=== PATIENT | male | born 1935 | race Caucasian/White ===

== ENCOUNTER → 2017-07-06 | Outpatient (CLI) | payer BC ==
[~2017-07-06] MED LIST: IBUP-103 PO; MULT-506 PO; OMEG10007 PO
[2017-07-06 13:42] LABS: ALT/SGPT 29 U/L (12-78); AST/SGOT 23 U/L (15-37); BLOOD UREA NITROGEN 27 mg/dl (7-18); BUN/CREATININE RATIO 16.5 (10-20); CALCIUM 9.6 mg/dl (8.5-10.1); CARBON DIOXIDE 25 mmol/L (21-32); CHLORIDE 108 mmol/L (98-107); CREATININE 1.62 mg/dl (0.60-1.40); GLUCOSE 93 mg/dl (70-99); POTASSIUM 4.4 mmol/L (3.5-5.1); SODIUM 140 mmol/L (136-145)
[2017-07-06 13:45] LABS: ALKALINE PHOSPHATASE 65 U/L (45-117)
== END | disposition home or self-care (01) ==
LOC: C.LABBC 09:32
PROVIDERS: ATTEND Physician Assistant
DX: I10 Essential (primary) hypertension (principal)

== ENCOUNTER → 2017-07-30 | Outpatient (CLI) | payer BC ==
[2017-07-30 14:17] LABS: BLOOD UREA NITROGEN 29 mg/dl (7-18); BUN/CREATININE RATIO 17.6 (10-20); CALCIUM 9.2 mg/dl (8.5-10.1); CARBON DIOXIDE 28 mmol/L (21-32); CHLORIDE 106 mmol/L (98-107); CREATININE 1.66 mg/dl (0.60-1.40); GLUCOSE 107 mg/dl (70-99); POTASSIUM 4.8 mmol/L (3.5-5.1); SODIUM 138 mmol/L (136-145)
== END | disposition home or self-care (01) ==
LOC: C.LABBC 09:15
PROVIDERS: ATTEND Physician Assistant
DX: Z00.00 Encounter for general adult medical examination without abnormal findings (principal); I10 Essential (primary) hypertension

== ENCOUNTER → 2017-09-08 | Outpatient (CLI) | payer BC ==
[2017-09-08 13:39] LABS: BLOOD UREA NITROGEN 24 mg/dl (7-18); CALCIUM 9.4 mg/dl (8.5-10.1); CARBON DIOXIDE 28 mmol/L (21-32); CREATININE 1.39 mg/dl (0.60-1.40); GLUCOSE 94 mg/dl (70-99); POTASSIUM 4.2 mmol/L (3.5-5.1); SODIUM 139 mmol/L (136-145)
== END | disposition home or self-care (01) ==
LOC: C.LABBC 09:58
PROVIDERS: ATTEND Physician Assistant
DX: I10 Essential (primary) hypertension (principal)

== ENCOUNTER → 2017-12-17 | Outpatient (CLI) | payer BC ==
[2017-12-17 14:12] LABS: ALBUMIN 3.9 gm/dl (3.4-5.0); ALT/SGPT 27 U/L (12-78); AST/SGOT 24 U/L (15-37); BLOOD UREA NITROGEN 20 mg/dl (7-18); CALCIUM 9.4 mg/dl (8.5-10.1); CARBON DIOXIDE 27 mmol/L (21-32); CREATININE 1.37 mg/dl (0.60-1.40); GLUCOSE 91 mg/dl (70-99); POTASSIUM 4.2 mmol/L (3.5-5.1); SODIUM 138 mmol/L (136-145)
[2017-12-17 14:15] LABS: ALKALINE PHOSPHATASE 66 U/L (45-117); TOTAL PROTEIN 8.1 gm/dl (6.4-8.2)
== END | disposition home or self-care (01) ==
LOC: C.LABBC 09:46
PROVIDERS: ATTEND Nurse Practitioner Adult Health
DX: I10 Essential (primary) hypertension (principal)

== ENCOUNTER → 2018-04-15 | Outpatient (CLI) | payer BC ==
[~2018-04-15] MED LIST changes: +AMLO5TAB3 PO; +ASPI81TA28 PO; -IBUP-103 PO; +LVQ750 PO; -MULT-506 PO; +PRED10TA PO; +SYMIN INH; +VNTHFA/IN INH
--- NOTE | 2018-04-15 09:13 | DIAGNOSTIC IMAGING REPORT ---
CHEST 2 VIEWS ROUTINE CLINICAL HISTORY: J18.9 [id number] dyspnea COMPARISON STUDY: 03/15/2018 FINDINGS: Interval development of what is potentially necrotic density right pulmonary apex. This is maximum dimension of 5 cm. It potentially represents a necrotic inflammatory process. Mildly progressive fibrotic changes left pulmonary apex. Slightly progressive bibasilar interstitial change. IMPRESSION: 1. Interval development of multi focal inflammatory changes and/or infiltrates. 2. The parenchymal infiltrate right pulmonary apex potentially shows a component of central necrosis. The above report was generated using voice recognition software. It may contain grammatical, syntax or spelling errors. Electronically signed by: Bryan Sehrman M.D. 04/15/2018 9:11 AM Dictated Date/Time: 04/15/2018 9:09 AM
== END | disposition home or self-care (01) ==
LOC: C.RADBC 08:56
PROVIDERS: ATTEND Nurse Practitioner Adult Health
DX: J18.9 Pneumonia, unspecified organism (principal); R91.8 Other nonspecific abnormal finding of lung field

== ENCOUNTER → 2018-04-21 | Outpatient (CLI) | payer BC ==
--- NOTE | 2018-04-21 12:03 | DIAGNOSTIC IMAGING REPORT ---
CT OF THE CHEST WITHOUT IV CONTRAST CLINICAL HISTORY: Abnormal chest radiograph. Pneumonia. COMPARISON STUDY: Chest CT March 11, 2018 and chest radiograph April 15, 2018. CT DOSE: 455.14 mGycm TECHNIQUE: Axial images of the chest were obtained without IV contrast. Images were reviewed in the axial, sagittal, and coronal planes. IV contrast was not administered for this examination. A dose lowering technique was utilized adhering to the principles of ALARA. FINDINGS: Several mildly enlarged right paratracheal lymph nodes measure up to 1.3 cm in short axis diameter. These have slightly increased since prior exam of March 11, 2018. The heart is mildly enlarged. There is no pericardial effusion. Moderate coronary artery calcification is noted. Lungs are suboptimally assessed due to respiratory motion. There is severe emphysema. Left upper lobe airspace opacity has improved since exam of March 11, 2018. Right upper lobe airspace opacity has developed since CT of March 11, 2018 but is improved since chest radiograph of April 15, 2018. There is no pneumothorax or pleural effusion. Bony thorax and upper abdomen are unremarkable on this unenhanced exam. IMPRESSION: 1. Moderate right upper lobe consolidation new since CT of March 11, 2018 but slightly improved since chest radiograph of April 15, 2018. This favors improving pneumonia. Radiographic follow-up to ensure resolution is recommended. 2. Improving left upper lobe airspace opacity since CT of March 11, 2018 consistent with improving pneumonia. 3. Severe emphysema. 4. Mild mediastinal lymphadenopathy which is likely reactive. Electronically signed by: Carmelo Samuel M.D. 04/21/2018 12:02 PM Dictated Date/Time: 04/21/2018 11:54 AM
== END | disposition home or self-care (01) ==
LOC: C.CTS 10:44
PROVIDERS: ATTEND Physician Assistant
DX: J18.9 Pneumonia, unspecified organism (principal); J43.9 Emphysema, unspecified

== ENCOUNTER 2021-01-29 12:10 | Inpatient (IN) ==
[2021-01-29] MEDS ORDERED: dexAMETHasone 6 MG in SYRINGE 0 ML IV ONE (12:27)
[2021-01-29] MEDS ORDERED: SODIUM CHLORIDE 0.9% 1000ML 1,000 ML IV STA (12:27)
[2021-01-29] MEDS ORDERED: ALBUT/IPRATROP 3MG/0.5MG NEB 3 ML VIAL NEB STA (12:27)
[2021-01-29] MEDS ORDERED: PIPERACILL/TAZOBAC CONSULT ACTIVE PRN (12:31)
[2021-01-29] MEDS ORDERED: PIPERACILLIN/TAZOBACTAM 4.5 GM/120 ML BAG IV ONE (12:31)
[2021-01-29] MEDS ORDERED: ACETAMINOPHEN 500 MG TAB PO STA (12:31)
[2021-01-29] MEDS ORDERED: DEXAMETHASONE SOD INJ 4 MG/ML VIAL ONE (12:43)
[2021-01-29 12:47] LABS: Basophils # (auto) 0.03 K/uL (0-0.2); Basophils % (auto) 0.3 %; Hematocrit (blood only) 51.5 % (42-52); Hemoglobin 17.9 g/dL (14.0-18.0); Immature Granulocytes # (auto) 0.05 K/uL (0.00-0.02); Immature Granulocytes % (auto) 0.6 %; Lymphocytes # (auto) 0.45 K/uL (1.2-3.4); Lymphocytes % (auto) 5.1 %; Mean Corpuscular Hgb Conc 34.8 g/dL (32-36); Mean Corpuscular Volume 92.1 fL (80-100); Mean Platelet Volume 10.3 fL (7.4-10.4); Monocytes % (auto) 3.4 %; Neutrophils # (auto) 7.94 K/uL (1.4-6.5); Neutrophils % (auto) 90.6 %; Platelet Count 186 K/uL (130-400); RDW Coefficient of Variation 14.1 % (11.5-14.5); RDW Standard Deviation 47.6 fL (36.4-46.3); Red Blood Count 5.59 M/uL (4.7-6.1); White Blood Count 8.77 K/uL (4.8-10.8)
--- NOTE | 2021-01-29 12:58 | XRay Report ---
XR chest 1V portable CLINICAL HISTORY: Fever COMPARISON STUDY: 11/05/2020 FINDINGS: The heart is mildly enlarged. There is slight progression in the bilateral reticular opacit ies with a lower lung zone predominance. There are also nodular opacities within the right upper lobe likely postinflammatory. Calcifications within the proximal left humerus, likely are secondary to a bone infarct although a chondroid lesion could appear similar.[ IMPRESSION: 1. Further progression in the reticular opacities with a basilar predominance. While likely represent ing progressive pulmonary fibrosis, an acute interstitial pneumonitis could appear similar 2. Stable right apical nodular scarring 3. Stable mild cardiomegaly ACT 112: Negative or not required by law. Electronically signed by: Jaun Chakraborty M.D. 01/29/2021 12:57 PM
--- NOTE | 2021-01-29 13:00 | Electrocardiogram Report ---
Test Reason : Blood Pressure : / mmHG Vent. Rate : 090 BPM Atrial Rate : 090 BPM P-R Int : 238 ms QRS Dur : 090 ms QT Int : 378 ms P-R-T Axes : 067 022 066 degrees QTc Int : 462 ms Poor data quality, interpretation may be adversely affected Sinus rhythm with 1st degree A-V block Otherwise normal ECG When compared with ECG of 31-MAY-2018 08:51, CA interval has increased Confirmed by Norman Viramontes ([id number]) on 01/29/2021 12:59:50 PM Referred By: Jeff Briceño Confirmed By:Norman Viramontes
[2021-01-29 13:06] LABS: Est GFR (African American) 46.6 ml/min
[2021-01-29 13:07] LABS: Albumin Level 4.1 gm/dl (3.4-5.0); BUN Creatinine Ratio 13.2 (10-20); Creatinine Clr Calc Pharmacy 34.8 ml/min; Est GFR (Non-African American) 40.2 ml/min
[2021-01-29 13:12] LABS: Bilirubin,Total 1.7 mg/dl (0.2-1); Globulin 4.1 gm/dl (2.5-4.0); Total Protein 8.2 gm/dl (6.4-8.2); Troponin I 0.019 ng/ml (0-0.045)
[2021-01-29 17:15] LABS: Appearance Urine Clear (Clear); Bacteria Urine Automated Negative (Negative); Bilirubin Urine Negative (Negative); Blood Urine Negative (Negative); Color Urine Yellow; Glucose Urine UA Negative (Negative); Ketones Urine Negative (Negative); Leukocyte Esterase Urine Negative (Negative); Nitrite Urine Negative (Negative); Protein Urine 2+ (Negative); RBC Urine Automated 0-4 /hpf (0-4); Specific Gravity Urine 1.017 (1.000-1.030); Urobilinogen Urine Negative (Negative); pH Urine 5.5 (4.5-7.5)
--- NOTE | 2021-01-29 17:24 | Emergency Department Note ---
History of Present Illness General Chief complaint: Fever Stated complaint: FEVER SENT BY DR. ARGUETA Time Seen by Provider: 01/29/21 12:21 Source: patient, family ( at the bedside) and RN notes reviewed Mode of arrival: ambulatory Limitations: no limitations History of Present Illness Provider complaint: Fever, shortness of breath This patient is a 85-year-old male who presents emergency department with compla ints of fever up to 102.5 last evening. 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 Patient is on home oxygen but has required increased flow. Pa mir dates he has been vaccinated against Covid, last shot being in early November. He has been using Tylenol for his fever. He is not currently on antibiotics. Home Medications Medication Instructions Recorded Confirmed Type aspirin [Aspirin Low Dose] 81 mg PO QAM 05/31/18 01/29/21 History omega [id number]-fish oil [Fish Oil] 1 cap PO QAM 05/31/18 01/29/21 History albuterol sulfate 90 mcg/actuation 2 - 4 puff INHALATION Q6H PRN #18 g 04/16/20 01/29/21 Rx aerosol inhaler ipratropium 0.5 mg-albuterol 3 mg 3 ml INHALATION Q4H PRN #180 vial 09/18/20 01/29/21 Rx (2.5 mg base)/3 mL nebulization soln budesonide-formoterol HFA 160 2 inh INH BID #10.2 g 10/15/20 01/29/21 Rx mcg-4.5 mcg/actuation aerosol inhaler tiotropium bromide 2.5 2 inh INHALATION QAM #4 g 11/07/20 01/29/21 Rx mcg/actuation mist for inhalation amlodipine 10 mg tablet 10 mg PO DAILY #90 tab 01/10/21 01/29/21 Rx Allergies Allergy/AdvReac Type Severity Reaction Status Date / Time blueberry Allergy Intermediate HIVES Verified 01/29/21 15:16 Past Med/Surg History Medical History (Updated 01/30/21 @ 15:20 by Jayna Medellin MD) Abnormal albumin Acute on chronic respiratory failure with hypoxemia Bullous emphysema Cancer Carotid stenosis, left Cerebral infarction CKD (chronic kidney disease) COPD (chronic obstructive pulmonary disease) Dyslipidemia Hypertension Idiopathic interstitial pneumonia Leukocytosis Pulmonary emphysema Surgical History History of appendectomy History of cataract surgery History of hernia repair History of laparoscopic cholecystectomy History of tonsillectomy and adenoidectomy Family History Unknown Diabetes Mother Stroke syndrome Father Coronary arteriosclerosis Denies family history of Ovarian cancer Prostate cancer Myocardial infarction Breast cancer Colorectal cancer Social History Smoking Status: Former smoker Tobacco Type: Cigarettes Age Started Using Tobacco: 19; Age Quit Using Tobacco: 54; packs per day: 2; Second Hand Exposure: Yes; Hx Alcohol Use: No Hx Substance Use: No Preferred Language: Montserratian Communication Ability: Effective Visual Impairment: No Limitations Hearing Ability: Hard of Hearing Beliefs That Will Affect Care: None marital status: Current Living Situation: Spouse current occupational status: retired Feels Safe at Home: Yes Safety Concerns: Feels Safe At This Time Childhood Exposure to Second-Hand Smoke: Yes Dental Care, Regularly: Yes Physical Activity Frequency: Does not Exercise Seatbelt Use: always Sunscreen Use: No Assistive Devices: Oxygen - Continuous Review of Systems See HPI for pertinent positives & negatives. and A total of 10 systems reviewed and were otherwise negative Physical Exam Vital Signs Vital Signs - 24 hr 01/29/21 12:13 01/29/21 12:30 01/29/21 12:36 Temperature 37.8 C H Temperature Source Temporal Artery Scan Pulse Rate 95 H 79 78 Pulse Rate [Right Finger] Pulse Rate from SpO2 Sensor 76 66 Respiratory Rate 28 H Respiratory Effort / Characteristics Labored Blood Pressure 127/69 132/78 Blood Pressure Mean 88 96 Pulse Oximetry 74 L 99 100 Oxygen Delivery Method Nasal Cannula Oxygen Flow Rate 6 Sepsis Recent Fever Within 48 Hours Yes Sepsis New/Unexplained Change in Mental Status N/A Sepsis Action Taken by Nursing No Action Required 01/29/21 12:38 01/29/21 12:40 01/29/21 12:47 Temperature Temperature Source Pulse Rate 75 81 Pulse Rate [Right Finger] Pulse Rate from SpO2 Sensor 71 83 Respiratory Rate Respiratory Effort / Characteristics Blood Pressure 126/75 Blood Pressure Mean 92 Pulse Oximetry 98 94 97 Oxygen Delivery Method Non-rebreather Oxygen Flow Rate 11 Sepsis Recent Fever Within 48 Hours Sepsis New/Unexplained Change in Mental Status Sepsis Action Taken by Nursing 01/29/21 12:50 01/29/21 12:52 01/29/21 13:00 Temperature Temperature Source Pulse Rate 77 76 Pulse Rate [Right Finger] 77 Pulse Rate from SpO2 Sensor 72 70 Respiratory Rate 22 Respiratory Effort / Characteristics Spontaneous Blood Pressure 124/72 Blood Pressure Mean 89 Pulse Oximetry 97 97 94 Oxygen Delivery Method Non-rebreather Oxygen Flow Rate 11 Sepsis Recent Fever Within 48 Hours Sepsis New/Unexplained Change in Mental Status Sepsis Action Taken by Nursing 01/29/21 13:10 01/29/21 13:16 01/29/21 13:20 Temperature Temperature Source Pulse Rate 76 73 72 Pulse Rate [Right Finger] Pulse Rate from SpO2 Sensor 67 71 71 Respiratory Rate Respiratory Effort / Characteristics Blood Pressure 119/62 Blood Pressure Mean 81 Pulse Oximetry 95 92 94 Oxygen Delivery Method Oxygen Flow Rate Sepsis Recent Fever Within 48 Hours Sepsis New/Unexplained Change in Mental Status Sepsis Action Taken by Nursing 01/29/21 13:30 01/29/21 13:40 01/29/21 13:45 Temperature Temperature Source Pulse Rate 70 71 72 Pulse Rate [Right Finger] Pulse Rate from SpO2 Sensor 70 64 67 Respiratory Rate Respiratory Effort / Characteristics Blood Pressure 109/65 110/61 Blood Pressure Mean 79 77 Pulse Oximetry 90 84 L 90 Oxygen Delivery Method Oxygen Flow Rate Sepsis Recent Fever Within 48 Hours Sepsis New/Unexplained Change in Mental Status Sepsis Action Taken by Nursing 01/29/21 13:50 01/29/21 14:00 01/29/21 14:10 Temperature Temperature Source Pulse Rate Pulse Rate [Right Finger] Pulse Rate from SpO2 Sensor 69 69 68 Respiratory Rate 21 22 Respiratory Effort / Characteristics Blood Pressure 107/60 Blood Pressure Mean 75 Pulse Oximetry 89 L 99 94 Oxygen Delivery Method Oxygen Flow Rate Sepsis Recent Fever Within 48 Hours Sepsis New/Unexplained Change in Mental Status Sepsis Action Taken by Nursing 01/29/21 14:15 01/29/21 14:20 01/29/21 14:30 Temperature Temperature Source Pulse Rate Pulse Rate [Right Finger] Pulse Rate from SpO2 Sensor 66 68 72 Respiratory Rate 28 H 23 24 Respiratory Effort / Characteristics Blood Pressure 101/59 L 107/64 Blood Pressure Mean 73 78 Pulse Oximetry 96 97 94 Oxygen Delivery Method Oxygen Flow Rate Sepsis Recent Fever Within 48 Hours Sepsis New/Unexplained Change in Mental Status Sepsis Action Taken by Nursing 01/29/21 14:40 01/29/21 14:45 01/29/21 14:50 Temperature Temperature Source Pulse Rate Pulse Rate [Right Finger] Pulse Rate from SpO2 Sensor 63 72 66 Respiratory Rate 23 19 23 Respiratory Effort / Characteristics Blood Pressure 102/68 Blood Pressure Mean 79 Pulse Oximetry 95 95 94 Oxygen Delivery Method Oxygen Flow Rate Sepsis Recent Fever Within 48 Hours Sepsis New/Unexplained Change in Mental Status Sepsis Action Taken by Nursing 01/29/21 15:00 01/29/21 15:10 01/29/21 15:20 Temperature Temperature Source Pulse Rate Pulse Rate [Right Finger] Pulse Rate from SpO2 Sensor 72 73 68 Respiratory Rate 23 29 H 20 Respiratory Effort / Characteristics Blood Pressure 105/65 Blood Pressure Mean 78 Pulse Oximetry 97 100 96 Oxygen Delivery Method Oxygen Flow Rate Sepsis Recent Fever Within 48 Hours Sepsis New/Unexplained Change in Mental Status Sepsis Action Taken by Nursing 01/29/21 15:30 01/29/21 15:40 01/29/21 15:50 Temperature Temperature Source Pulse Rate Pulse Rate [Right Finger] Pulse Rate from SpO2 Sensor 82 77 77 Respiratory Rate 26 H 23 22 Respiratory Effort / Characteristics Blood Pressure Blood Pressure Mean Pulse Oximetry 95 100 100 Oxygen Delivery Method Oxygen Flow Rate Sepsis Recent Fever Within 48 Hours Sepsis New/Unexplained Change in Mental Status Sepsis Action Taken by Nursing 01/29/21 16:00 01/29/21 16:10 01/29/21 16:20 Temperature Temperature Source Pulse Rate Pulse Rate [Right Finger] Pulse Rate from SpO2 Sensor 73 71 72 Respiratory Rate 24 18 19 Respiratory Effort / Characteristics Blood Pressure Blood Pressure Mean Pulse Oximetry 99 97 100 Oxygen Delivery Method Oxygen Flow Rate Sepsis Recent Fever Within 48 Hours Sepsis New/Unexplained Change in Mental Status Sepsis Action Taken by Nursing 01/29/21 16:30 01/29/21 16:36 01/29/21 16:37 Temperature Temperature Source Pulse Rate Pulse Rate [Right Finger] Pulse Rate from SpO2 Sensor 70 72 70 Respiratory Rate 25 H 23 16 Respiratory Effort / Characteristics Blood Pressure 109/89 Blood Pressure Mean 95 Pulse Oximetry 100 100 100 Oxygen Delivery Method Oxygen Flow Rate Sepsis Recent Fever Within 48 Hours Sepsis New/Unexplained Change in Mental Status Sepsis Action Taken by Nursing 01/29/21 16:40 01/29/21 16:50 01/29/21 17:00 Temperature Temperature Source Pulse Rate Pulse Rate [Right Finger] Pulse Rate from SpO2 Sensor 70 79 70 Respiratory Rate 17 21 27 H Respiratory Effort / Characteristics Blood Pressure 124/68 Blood Pressure Mean 86 Pulse Oximetry 100 98 100 Oxygen Delivery Method Oxygen Flow Rate Sepsis Recent Fever Within 48 Hours Sepsis New/Unexplained Change in Mental Status Sepsis Action Taken by Nursing 01/29/21 17:10 01/29/21 17:20 01/29/21 17:30 Temperature Temperature Source Pulse Rate Pulse Rate [Right Finger] Pulse Rate from SpO2 Sensor 71 71 68 Respiratory Rate 24 23 26 H Respiratory Effort / Characteristics Blood Pressure 110/57 L Blood Pressure Mean 74 Pulse Oximetry 100 100 97 Oxygen Delivery Method Oxygen Flow Rate Sepsis Recent Fever Within 48 Hours Sepsis New/Unexplained Change in Mental Status Sepsis Action Taken by Nursing 01/29/21 17:40 Temperature Temperature Source Pulse Rate Pulse Rate [Right Finger] Pulse Rate from SpO2 Sensor 77 Respiratory Rate 16 Respiratory Effort / Characteristics Blood Pressure Blood Pressure Mean Pulse Oximetry 100 Oxygen Delivery Method Oxygen Flow Rate Sepsis Recent Fever Within 48 Hours Sepsis New/Unexplained Change in Mental Status Sepsis Action Taken by Nursing Vital signs reviewed. General: Chronically ill-appearing 85-year-old male, in no significant distress. On oxymask HEENT: No scleral icterus, PERRLA, neck supple. Atraumatic. Cardiovascular: Regular rate and rhythm, no extra sounds. Pulmonary: Coarse breath sounds bilaterally, increased work of breathing on supplemental oxygen Abdomen: Soft, nontender, nondistended, positive bowel sounds. Musculoskeletal: Atraumatic, no peripheral edema. Neurologic: Patient awake alert and oriented x 3 Skin: Warm, dry, no rash Course Administered Medications Amlodipine Besylate (Amlodipine Besylate 5 Mg Tab) 10 mg PO DAILY [facility] Stop: 03/01/21 08:59 Last Admin: 01/30/21 08:04 Dose: 10 mg Documented by: [id number] Aspirin (Aspirin 81 Mg Ectab) 81 mg PO QAM [facility] Stop: 03/01/21 08:59 Last Admin: 01/30/21 08:05 Dose: 81 mg Documented by: [id number] Fish Oil ([place]-3 (Purified Fish Oil) 1 Gm Cap) 1 gm PO QAM [facility] Stop: 03/01/21 08:59 Last Admin: 01/30/21 08:05 Dose: 1 gm Documented by: [id number] Fluticasone/Vilanterol (Fluticasone/Vilanterol 100/25mcg 14 Puffs/Inhaler) 1 puffs INH DAILY IZAIAH Stop: 03/01/21 08:59 Last Admin: 01/30/21 08:05 Dose: 1 puffs Documented by: [id number] Heparin Sodium (Porcine) (Heparin Sod 5,000 Unit/0.5 Ml Vial) 5,000 units SQ Q8 IZAIAH Stop: 03/01/21 05:59 Last Admin: 01/30/21 20:29 Dose: 5,000 units Documented by: [id number] Admin: 01/30/21 13:37 Dose: 5,000 units Documented by: [id number] Admin: 01/30/21 05:23 Dose: 5,000 units Documented by: [id number] Prednisone (Prednisone 20 Mg Tab) 40 mg PO DAILY [facility] Stop: 03/01/21 08:59 Last Admin: 01/30/21 08:05 Dose: 40 mg Documented by: [id number] Umeclidinium Wyatt (Umeclidinium [place] 62.5mcg/Blister 7 Puffs/Inhaler) 1 puffs INH QAM [facility] Stop: 03/01/21 08:59 Last Admin: 01/30/21 08:06 Dose: 1 puffs Documented by: [id number] Discontinued Medications Acetaminophen (Acetaminophen 500 Mg Tab) 1,000 mg PO NOW STA Stop: 01/29/21 12:32 Last Admin: 01/29/21 12:49 Dose: 1,000 mg Documented by: [id number] Albuterol (Albut/Ipratrop 3mg/0.5mg Neb 3 Ml Vial) 3 ml NEB NOW STA Stop: 01/29/21 12:28 Last Admin: 01/29/21 12:52 Dose: 3 ml Documented by: [id number] Dexamethasone (Dexamethasone Sod Inj 4 Mg/Ml Vial) Confirm Administered Dose 8 mg .ROUTE .STK-MED ONE Stop: 01/29/21 12:44 Last Admin: 01/29/21 12:49 Dose: Not Given Documented by: [id number] Sodium Chloride (Nss 1000ml) 1,000 mls @ 125 mls/hr IV .Q8H STA Stop: 01/29/21 20:26 Last Infusion: 01/29/21 16:32 Dose: 0 mls/hr Documented by: [id number] Admin: 01/29/21 13:10 Dose: 125 mls/hr Documented by: [id number] Piperacillin Sod/Tazobactam Sod (Zosyn) 4.5 gm in 120 mls @ 240 mls/hr IV NOW ONE Stop: 01/29/21 13:00 Last Infusion: 01/29/21 13:47 Dose: 0 mls/hr Documented by: [id number] Admin: 01/29/21 12:49 Dose: 240 mls/hr Documented by: [id number] Dexamethasone 6 mg/ Syringe 1.5 mls @ 1 mls/min IV ONE ONE Stop: 01/29/21 12:28 Last Admin: 01/29/21 12:49 Dose: 1 mls/min Documented by: [id number] Piperacillin Sod/Tazobactam (Sod 3.375 gm/ Dextrose) 115 mls @ 28.75 mls/hr IV Q8H IZAIAH; Protocol Stop: 02/05/21 19:59 Last Infusion: 01/30/21 12:53 Dose: 0 mls/hr Documented by: [id number] Admin: 01/30/21 11:33 Dose: 28.8 mls/hr Documented by: [id number] Infusion: 01/30/21 08:13 Dose: 0 mls/hr Documented by: [id number] Admin: 01/30/21 03:06 Dose: 28.8 mls/hr Documented by: [id number] Infusion: 01/30/21 01:00 Dose: 0 mls/hr Documented by: [id number] Admin: 01/29/21 21:17 Dose: 28.8 mls/hr Documented by: [id number] Azithromycin 500 mg/ Dextrose 255 mls @ 127.5 mls/hr IV ONCE ONE Stop: 01/30/21 14:14 Last Infusion: 01/30/21 16:01 Dose: 0 mls/hr Documented by: [id number] Admin: 01/30/21 13:37 Dose: 127.5 mls/hr Documented by: [id number] Levalbuterol HCl (Levalbuterol 1.25mg/0.5ml Neb) 1.25 mg NEB Q6R IZAIAH Stop: 02/28/21 20:29 Last Admin: 01/30/21 13:18 Dose: 1.25 mg Documented by: [id number] Admin: 01/30/21 07:29 Dose: 1.25 mg Documented by: [id number] Admin: 01/30/21 00:13 Dose: 1.25 mg Documented by: [id number] Admin: 01/29/21 21:00 Dose: 1.25 mg Documented by: [id number] Levalbuterol HCl (Levalbuterol Hcl 1.25 Mg/3 Ml Neb) Confirm Administered Dose 1.25 mg .ROUTE .STK-MED ONE Stop: 01/30/21 13:15 Last Admin: 01/30/21 17:30 Dose: Not Given Documented by: [id number] Miscellaneous Information (Piperacill/Tazobac Consult Active) 1 ea N/A UD PRN PRN Reason: Consult Stop: 02/28/21 12:30 Last Admin: 01/29/21 12:49 Dose: 1 ea Documented by: [id number] Medical Decision Making Differential Diagnosis Reactive airway disease, pneumonia, pneumothorax, COPD, CHF, infections, cardiac ischemia, pulmonary embolism, musculoskeletal, gastrointestinal, as well as other pathologies. Medical Records Attestation: I reviewed the patient's medical records. Home Medications Current Medication List: was personally reviewed by me Laboratory Data Attestation: I reviewed the patient's lab results. Result diagrams: 01/30/21 08:37 01/30/21 08:37 Lab Results 01/29/21 01/29/21 01/29/21 Range/Units 12:30 12:30 13:00 WBC 8.77 (4.8-10.8) K/uL RBC 5.59 (4.7-6.1) M/uL Hgb 17.9 (14.0-18.0) g/dL Hct 51.5 (42-52) % MCV 92.1 (80-100) fL MCH 32.0 (25-34) pg MCHC 34.8 (32-36) g/dL RDW Std Deviation 47.6 H (36.4-46.3) fL RDW Coeff of Matt 14.1 (11.5-14.5) % Plt Count 186 (130-400) K/uL MPV 10.3 (7.4-10.4) fL Immature Gran % (Auto) 0.6 % Neut % (Auto) 90.6 % Lymph % (Auto) 5.1 % [place] % (Auto) 3.4 % Eos % (Auto) 0.0 % Baso % (Auto) 0.3 % Neut # (Auto) 7.94 H (1.4-6.5) K/uL Lymph # (Auto) 0.45 L (1.2-3.4) K/uL [place] # (Auto) 0.30 (0.11-0.59) K/uL Eos # (Auto) 0.00 (0-0.5) K/uL Baso # (Auto) 0.03 (0-0.2) K/uL Immature Gran # (Auto) 0.05 H (0.00-0.02) K/uL Sodium 134 L (136-145) mmol/L Potassium 4.0 (3.5-5.1) mmol/L Chloride 103 (98-107) mmol/L Carbon Dioxide 24 (21-32) mmol/L Anion Gap 7.0 (3-11) BUN 20 H (7-18) mg/dl Creatinine 1.55 H (0.6-1.4) mg/dl Est Cr Clr Drug Dosing 34.8 ml/min Est GFR ( Amer) 46.6 ml/min Est GFR (Non-Af Amer) 40.2 ml/min BUN/Creatinine Ratio 13.2 (10-20) Glucose 140 H (70-99) mg/dl Lactate Calcium 9.0 (8.5-10.1) mg/dl Total Bilirubin 1.7 H (0.2-1) mg/dl AST 39 H (15-37) U/L ALT 38 (12-78) U/L Alkaline Phosphatase 87 (45-117) U/L Troponin I 0.019 (0-0.045) ng/ml Total Protein 8.2 (6.4-8.2) gm/dl Albumin 4.1 (3.4-5.0) gm/dl Globulin 4.1 H (2.5-4.0) gm/dl Albumin/Globulin Ratio 1.0 (0.9-2) Procalcitonin (0-0.5) ng/ml Urine Color Urine Appearance (Clear) Urine pH (4.5-7.5) Ur Specific [place] (1.000-1.030) Urine Protein (Negative) Urine Glucose (UA) (Negative) Urine Ketones (Negative) Urine Blood (Negative) Urine Nitrite (Negative) Urine Bilirubin (Negative) Urine Urobilinogen (Negative) Ur Leukocyte Esterase (Negative) Urine WBC (Auto) (0-5) /hpf Urine RBC (Auto) (0-4) /hpf U Hyaline Cast (Auto) (0-5) /lpf U Epithel Cells (Auto) (0-5) /lpf Urine Bacteria (Auto) (Negative) COVID-19 Eval Order Covid19 at [facility] SARS-CoV-2 (PCR) (Negative) 01/29/21 01/29/21 01/29/21 Range/Units 13:00 13:10 16:38 WBC (4.8-10.8) K/uL RBC (4.7-6.1) M/uL Hgb (14.0-18.0) g/dL Hct (42-52) % MCV (80-100) fL MCH (25-34) pg MCHC (32-36) g/dL RDW Std Deviation (36.4-46.3) fL RDW Coeff of Matt (11.5-14.5) % Plt Count (130-400) K/uL MPV (7.4-10.4) fL Immature Gran % (Auto) % Neut % (Auto) % Lymph % (Auto) % [place] % (Auto) % Eos % (Auto) % Baso % (Auto) % Neut # (Auto) (1.4-6.5) K/uL Lymph # (Auto) (1.2-3.4) K/uL [place] # (Auto) (0.11-0.59) K/uL Eos # (Auto) (0-0.5) K/uL Baso # (Auto) (0-0.2) K/uL Immature Gran # (Auto) (0.00-0.02) K/uL Sodium (136-145) mmol/L Potassium (3.5-5.1) mmol/L Chloride (98-107) mmol/L Carbon Dioxide (21-32) mmol/L Anion Gap (3-11) BUN (7-18) mg/dl Creatinine (0.6-1.4) mg/dl Est Cr Clr Drug Dosing ml/min Est GFR ( Amer) ml/min Est GFR (Non-Af Amer) ml/min BUN/Creatinine Ratio (10-20) Glucose (70-99) mg/dl Lactate Cancelled Calcium (8.5-10.1) mg/dl Total Bilirubin (0.2-1) mg/dl AST (15-37) U/L ALT (12-78) U/L Alkaline Phosphatase (45-117) U/L Troponin I (0-0.045) ng/ml Total Protein (6.4-8.2) gm/dl Albumin (3.4-5.0) gm/dl Globulin (2.5-4.0) gm/dl Albumin/Globulin Ratio (0.9-2) Procalcitonin (0-0.5) ng/ml Urine Color Yellow Urine Appearance Clear (Clear) Urine pH 5.5 (4.5-7.5) Ur Specific [place] 1.017 (1.000-1.030) Urine Protein 2+ H (Negative) Urine Glucose (UA) Negative (Negative) Urine Ketones Negative (Negative) Urine Blood Negative (Negative) Urine Nitrite Negative (Negative) Urine Bilirubin Negative (Negative) Urine Urobilinogen Negative (Negative) Ur Leukocyte Esterase Negative (Negative) Urine WBC (Auto) 1-5 (0-5) /hpf Urine RBC (Auto) 0-4 (0-4) /hpf U Hyaline Cast (Auto) 1-5 (0-5) /lpf U Epithel Cells (Auto) 10-20 H (0-5) /lpf Urine Bacteria (Auto) Negative (Negative) COVID-19 Eval Order SARS-CoV-2 (PCR) NEGATIVE (Negative) 01/29/21 01/29/21 Range/Units 17:12 17:12 WBC (4.8-10.8) K/uL RBC (4.7-6.1) M/uL Hgb (14.0-18.0) g/dL Hct (42-52) % MCV (80-100) fL MCH (25-34) pg MCHC (32-36) g/dL RDW Std Deviation (36.4-46.3) fL RDW Coeff of Matt (11.5-14.5) % Plt Count (130-400) K/uL MPV (7.4-10.4) fL Immature Gran % (Auto) % Neut % (Auto) % Lymph % (Auto) % [place] % (Auto) % Eos % (Auto) % Baso % (Auto) % Neut # (Auto) (1.4-6.5) K/uL Lymph # (Auto) (1.2-3.4) K/uL [place] # (Auto) (0.11-0.59) K/uL Eos # (Auto) (0-0.5) K/uL Baso # (Auto) (0-0.2) K/uL Immature Gran # (Auto) (0.00-0.02) K/uL Sodium (136-145) mmol/L Potassium (3.5-5.1) mmol/L Chloride (98-107) mmol/L Carbon Dioxide (21-32) mmol/L Anion Gap (3-11) BUN (7-18) mg/dl Creatinine (0.6-1.4) mg/dl Est Cr Clr Drug Dosing ml/min Est GFR ( Amer) ml/min Est GFR (Non-Af Amer) ml/min BUN/Creatinine Ratio (10-20) Glucose (70-99) mg/dl Lactate 1.1 Calcium (8.5-10.1) mg/dl Total Bilirubin (0.2-1) mg/dl AST (15-37) U/L ALT (12-78) U/L Alkaline Phosphatase (45-117) U/L Troponin I (0-0.045) ng/ml Total Protein (6.4-8.2) gm/dl Albumin (3.4-5.0) gm/dl Globulin (2.5-4.0) gm/dl Albumin/Globulin Ratio (0.9-2) Procalcitonin 0.21 (0-0.5) ng/ml Urine Color Urine Appearance (Clear) Urine pH (4.5-7.5) Ur Specific [place] (1.000-1.030) Urine Protein (Negative) Urine Glucose (UA) (Negative) Urine Ketones (Negative) Urine Blood (Negative) Urine Nitrite (Negative) Urine Bilirubin (Negative) Urine Urobilinogen (Negative) Ur Leukocyte Esterase (Negative) Urine WBC (Auto) (0-5) /hpf Urine RBC (Auto) (0-4) /hpf U Hyaline Cast (Auto) (0-5) /lpf U Epithel Cells (Auto) (0-5) /lpf Urine Bacteria (Auto) (Negative) COVID-19 Eval Order SARS-CoV-2 (PCR) (Negative) Imaging Data Radiologist's Impression: Chest X-Ray 01/29/21 12:27 XR chest 1V portable CLINICAL HISTORY: Fever COMPARISON STUDY: 11/05/2020 FINDINGS: The heart is mildly enlarged. There is slight progression in the bilateral reticular opacities with a lower lung zone predominance. There are also nodular opacities within the right upper lobe likely postinflammatory. Calcifications within the proximal left humerus, likely are secondary to a bone infarct although a chondroid lesion could appear similar.[ IMPRESSION: 1. Further progression in the reticular opacities with a basilar predominance. While likely representing progressive pulmonary fibrosis, an acute interstitial pneumonitis could appear similar 2. Stable right apical nodular scarring 3. Stable mild cardiomegaly ACT 112: Negative or not required by law. Electronically signed by: Jaun Chakraborty M.D. 01/29/2021 12:57 PM ECG Data Attestation: I personally reviewed and interpreted this ECG as follows: Indication: + SOB/dyspnea Rate (beats per minute): 90 Rhythm: + sinus rhythm ECG Intervals/blocks: + First degree AV block and + Prolonged QT (462) ECG [place]: + Normal ECG ST segments: + Normal ST segments ECG Findings: + Other (Poor quality baseline for interpretation); no PACs and no PVCs Blood Pressure Blood Pressure Findings: Normal blood pressure Blood Pressure Disposition: did not require urgent referral MDM Narrative This patient was evaluated and appeared to be in no significant distress. IV access was obtained and laboratory work was drawn. An order for cardiac monitoring was placed and the patient is noted to be in a sinus rhythm with a first-degree AV block at 79 bpm. Chest x-ray reveals reticular opacities with basilar predominance per radiology. This may be due to the patient's underlying pulmonary fibrosis however this could also be related to pneumonitis. Given the patient's fever blood cultures were sent. Patient was medicated with IV Zosyn. He was also given IV dexamethasone and a DuoNeb treatment. He was hydrated with normal saline solution. He was given 1000 mg of p.o. Tylenol for his fever. Patient's Covid swab is negative. Case was discussed with the hospitalist service who will evaluate the patient for admission and further management. Patient and his are aware of the plan and agree. Impression & Plan Pneumonia, Respiratory failure with hypoxia Discharge Plan Visit Data Chief Complaint: Fever Stated Complaint: FEVER SENT BY DR. ARGUETA ED Provider: Shelby Bailey Discharge Problem: Pneumonia, Respiratory failure with hypoxia Patient Disposition: Admitted As Inpatient Discharge Instructions Interventions: ED Discharge Assessment Last Done: 01/29/21 18:46 Discharge Problem: Pneumonia Qualifiers: Pneumonia type: due to unspecified organism Laterality: bilateral Lung location: unspecified part of lung Qualified Code(s): J18.9 - Pneumonia, unspecified organism Respiratory failure with hypoxia Qualifiers: Chronicity: acute on chronic Qualified Code(s): J96.21 - Acute and chronic respiratory failure with hypoxia
--- NOTE | 2021-01-29 17:43 | History & Physical Report ---
Date of Service January 29, 2021 Assessment & Plan (1) IPF (idiopathic pulmonary fibrosis): (2) COPD (chronic obstructive pulmonary disease) with emphysema: Admit patient will place on home meds: LABA, LAMA, STEROIDS. levalbuterol NEBS WILL BE ORDERED (3) BPH w urinary obs/LUTS: controlled. will monitor (4) Hypertension: (5) Dyslipidemia: (6) CKD (chronic kidney disease): CKD stage 3 will monitor History of Present Illness Chief Complaint: SOB Primary Care Provider: Tk Almieda DO This is a pleasant 85 yo male with PMH described below who comes into the ER with Shortness of breath at rest and complaints of fever up to 102.5 last evening.. He denies any cough, chills, N/V. He reports he normally uses supplemental oxygen : 2L NC at rest, 5 liters on exertion Symptoms began yesterday. They did not get better which prompted him to come in to the hospital. Allergies Allergy/AdvReac Type Severity Reaction Status Date / Time blueberry Allergy Intermediate HIVES Verified 01/29/21 15:16 Home Medications Medication Instructions Recorded Confirmed Type aspirin [Aspirin Low Dose] 81 mg PO QAM 05/31/18 01/29/21 History omega 1-jwn-ojo-fish oil [Fish Oil] 1 cap PO QAM 05/31/18 01/29/21 History albuterol sulfate 90 mcg/actuation 2 - 4 puff INHALATION Q6H PRN #18 g 04/16/20 01/29/21 Rx aerosol inhaler ipratropium 0.5 mg-albuterol 3 mg 3 ml INHALATION Q4H PRN #180 vial 09/18/20 01/29/21 Rx (2.5 mg base)/3 mL nebulization soln budesonide-formoterol HFA 160 2 inh INH BID #10.2 g 10/15/20 01/29/21 Rx mcg-4.5 mcg/actuation aerosol inhaler tiotropium bromide 2.5 2 inh INHALATION QAM #4 g 11/07/20 01/29/21 Rx mcg/actuation mist for inhalation amlodipine 10 mg tablet 10 mg PO DAILY #90 tab 01/10/21 01/29/21 Rx Past Med/Surg History Medical History Abnormal albumin Bullous emphysema Cancer Carotid stenosis, left Cerebral infarction CKD (chronic kidney disease) COPD (chronic obstructive pulmonary disease) Dyslipidemia Hypertension Leukocytosis Surgical History History of appendectomy History of cataract surgery History of hernia repair History of laparoscopic cholecystectomy History of tonsillectomy and adenoidectomy Family History Unknown Diabetes Mother Stroke syndrome Father Coronary arteriosclerosis Denies family history of Ovarian cancer Prostate cancer Myocardial infarction Breast cancer Colorectal cancer Social History Smoking Status: Former smoker Tobacco Type: Cigarettes Age Started Using Tobacco: 19; Age Quit Using Tobacco: 54; packs per day: 2; Second Hand Exposure: Yes; Hx Alcohol Use: No Hx Substance Use: No Preferred Language: Swedish Communication Ability: Effective Visual Impairment: No Limitations Hearing Ability: Hard of Hearing Beliefs That Will Affect Care: None marital status: Current Living Situation: Spouse current occupational status: retired Feels Safe at Home: Yes Safety Concerns: Feels Safe At This Time Childhood Exposure to Second-Hand Smoke: Yes Dental Care, Regularly: Yes Physical Activity Frequency: Does not Exercise Seatbelt Use: always Sunscreen Use: No Assistive Devices: Oxygen - at Night and Oxygen - Continuous Review of Systems Review of Systems: All systems reviewed & are unremarkable except as noted in HPI & below Physical Exam Constitutional: WD/WN, vitals as above Eyes: PERRL, conjunctivae normal, anicteric sclerae ENMT: external ear and nose normal, oropharynx normal Neck: trachea midline, no thyromegaly Respiratory: + uses accessory muscles; not tachypneic wheezing Cardiovascular: RRR, no murmur, no edema Gastrointestinal (Abdomen): normal bowel sounds, soft, nontender, no hepatosplenomegaly Musculoskeletal: no cyanosis or clubbing, extremities motor strength 5/5 Neurologic: PERRL, EOMI, accommodation nl, no face palsy, no dysarthria Psychiatric: A+Ox3, euthymic affect Lymphatic: no cervical or axillary lymphadenopathy Results & Data Results & Data ([facility]) Vital Signs (Past 12 Hours) Vital Signs Temp Pulse Pulse Resp BP Pulse Ox 01/29/21 17:10 24 100 01/29/21 17:00 27 H 124/68 100 01/29/21 16:50 21 98 01/29/21 16:40 17 100 01/29/21 16:37 16 100 01/29/21 16:36 23 109/89 100 01/29/21 16:30 25 H 100 01/29/21 16:20 19 100 01/29/21 16:10 18 97 01/29/21 16:00 24 99 01/29/21 15:50 22 100 01/29/21 15:40 23 100 01/29/21 15:30 26 H 95 01/29/21 15:20 20 96 01/29/21 15:10 29 H 100 01/29/21 15:00 23 105/65 97 01/29/21 14:50 23 94 01/29/21 14:45 19 102/68 95 01/29/21 14:40 23 95 01/29/21 14:30 24 107/64 94 01/29/21 14:20 23 97 01/29/21 14:15 28 H 101/59 L 96 01/29/21 14:10 22 94 01/29/21 14:00 21 107/60 99 01/29/21 13:50 89 L 01/29/21 13:45 72 110/61 90 01/29/21 13:40 71 84 L 01/29/21 13:30 70 109/65 90 01/29/21 13:20 72 94 01/29/21 13:16 73 119/62 92 01/29/21 13:10 76 95 01/29/21 13:00 76 124/72 94 01/29/21 12:52 77 22 97 01/29/21 12:50 77 97 01/29/21 12:47 81 126/75 97 01/29/21 12:40 75 94 01/29/21 12:38 98 01/29/21 12:36 78 100 01/29/21 12:30 79 132/78 99 01/29/21 12:13 37.8 C H 95 H 28 H 127/69 74 L PG Care Time/CCT Total # of Minutes Spent Total Time Spent with Patient: Total time spent is greater than 50% in coordination of care (as documented) at patient's floor/unit and/or counseling patient: Coding Level of Care Code 56591 Initial Inpt Care Lvl 3 Diagnoses IPF (idiopathic pulmonary fibrosis) J84.112 COPD (chronic obstructive pulmonary disease) with emphysema J43.9 BPH w urinary obs/LUTS N40.1; N13.8 Hypertension I10 Dyslipidemia E78.5 CKD (chronic kidney disease) N18.9 Time Spent (min) 55
[2021-01-29] MEDS: LEVALBUTEROL 1.25MG/0.5ML NEB NEB SCH (21:00)
[2021-01-29] MEDS: PIPERACILLIN/TAZOBACTAM 3.375 GM in DEXTROSE 5% 100 ML IV SCH (21:17)
[2021-01-30] MEDS: LEVALBUTEROL 1.25MG/0.5ML NEB NEB SCH ×3 (00:13→13:18)
[2021-01-30] MEDS: PIPERACILLIN/TAZOBACTAM 3.375 GM in DEXTROSE 5% 100 ML IV SCH ×2 (03:06→11:33)
[2021-01-30] MEDS: HEPARIN SOD 5,000 UNIT/0.5 ML VIAL SQ SCH ×3 (05:23→20:29)
[2021-01-30] MEDS: amLODIPine BESYLATE 5 MG TAB PO SCH (08:04)
[2021-01-30] MEDS: FLUTICASONE/VILANTEROL 100/25MCG 14 PUFFS/INHALER INH SCH (08:05)
[2021-01-30] MEDS: OMEGA-3 (PURIFIED FISH OIL) 1 GM CAP PO SCH (08:05)
[2021-01-30] MEDS: ASPIRIN 81 MG ECTAB PO SCH (08:05)
[2021-01-30] MEDS: predniSONE 20 MG TAB PO SCH (08:05)
[2021-01-30] MEDS: UMECLIDINIUM BROMIDE 62.5MCG/BLISTER 7 PUFFS/INHALER INH SCH (08:06)
[2021-01-30 09:18] LABS: Hematocrit (blood only) 44.4 % (42-52); Hemoglobin 15.7 g/dL (14.0-18.0); Mean Corpuscular Hgb Conc 35.4 g/dL (32-36); Mean Corpuscular Volume 90.6 fL (80-100); Platelet Count 178 K/uL (130-400); RDW Coefficient of Variation 13.7 % (11.5-14.5); RDW Standard Deviation 45.6 fL (36.4-46.3); White Blood Count 5.62 K/uL (4.8-10.8)
[2021-01-30 09:48] LABS: BUN Creatinine Ratio 17.1 (10-20); Calcium 8.9 mg/dl (8.5-10.1); Creatinine Clr Calc Pharmacy 41.5 ml/min; Est GFR (African American) 57.7 ml/min; Est GFR (Non-African American) 49.8 ml/min; Potassium 3.8 mmol/L (3.5-5.1)
--- NOTE | 2021-01-30 11:57 | Pulmonary Consultation ---
Date of Consultation January 30, 2021 Assessment & Plan (1) Acute on chronic respiratory failure with hypoxemia: 85-year-old male with a past medical history of pulmonary emphysema, BPH and chronic hypoxic respiratory failure who was in the hospital due to worsening hypoxia and shortness of breath. Shortness of breath and hypoxia: He does have severe underlying emphysema and findings consistent with interstitial lung disease including bibasilar predominant subpleural reticulation and honeycombing. Mild traction bronchiectasis was also seen on the CT chest from November 2020. The differential for these type of radiographic findings can include UIP/IPF, CPFE (combined pulmonary fibrosis and emphysema) and occasionally chronic hypersensitivity pneumonitis. I suspect that he has a flare of his underlying idiopathic interstitial pneumonia and I agree with prednisone treatment. I would recommend transitioning from Zosyn to azithromycin to cover for atypical infection. His procalcitonin was within normal limits and I doubt that he has an acute bacterial pneumonia from a typical organism. A prolonged course of prednisone will be required with pulmonary follow-up as an outpatient. Updated PFTs in the outpatient setting may be beneficial. Please continue the current inhaler regimen that he is on Symbicort and Spiriva as an outpatient. Breo Ellipta and Incruse Ellipta can be utilized as an inpatient. Hypoxia: Target SPO2 88 to 92%. He is normally on 2 to 5 L of oxygen at home. Will order incentive spirometry and flutter valve to help with mucociliary clearance. Pulmonary will continue to follow along with you. Thank you for the consult. (2) Idiopathic interstitial pneumonia: (3) Pulmonary emphysema: History of Present Illness Reason for Consultation: Worsening hypoxia Attending Physician: Jayna Medellin MD History of Present Illness 85-year-old male with a past medical history of severe pulmonary emphysema, possible interstitial lung disease, carotid artery disease and BPH who presented to the hospital due to increasing shortness of breath and hypoxia. He is normally on 2 L of oxygen at rest and 5 L of oxygen on exertion. The patient was started on Zosyn by the hospitalist. Patient complained of a fever of 102.5 on admission. He is also on prednisone 40 mg daily there was initiated on admission. He was given a dose of Decadron 8 mg in the emergency department. COVID-19 testing here was negative. The patient normally follows with Dr. Briceño in the pulmonary clinic. He was last seen by him on 12/18/2020. The patient relates that his symptoms began around Memorial Day and he started having low-grade temperature. He then started having back pain and leg pain. He notes that his oxygen levels were not staying up with his usual flow rate of oxygen. He was also having some mild orthopnea symptoms. He denied any chest pain. He does have a slight cough today that is nonproductive. He does feel better today as compared to yesterday. He feels less short of breath. He was a heavy smoker roughly 30 years ago. He did not quantify how much he smoked exactly, but noted that he was a very heavy smoker. 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 He has 7 cats at home and lives in a large property. He denies any exposures to birds that he is aware of. He denies smoking a pipe or cigars. No leukocytosis seen on admission. Procalcitonin admission was 0.21. No documented fevers seen. Allergies Allergy/AdvReac Type Severity Reaction Status Date / Time blueberry Allergy Intermediate HIVES Verified 01/29/21 15:16 Home Medications Medication Instructions Recorded Confirmed Type aspirin [Aspirin Low Dose] 81 mg PO QAM 05/31/18 01/29/21 History omega 8-qyq-qnp-fish oil [Fish Oil] 1 cap PO QAM 05/31/18 01/29/21 History albuterol sulfate 90 mcg/actuation 2 - 4 puff INHALATION Q6H PRN #18 g 04/16/20 01/29/21 Rx aerosol inhaler ipratropium 0.5 mg-albuterol 3 mg 3 ml INHALATION Q4H PRN #180 vial 09/18/20 01/29/21 Rx (2.5 mg base)/3 mL nebulization soln budesonide-formoterol HFA 160 2 inh INH BID #10.2 g 10/15/20 01/29/21 Rx mcg-4.5 mcg/actuation aerosol inhaler tiotropium bromide 2.5 2 inh INHALATION QAM #4 g 11/07/20 01/29/21 Rx mcg/actuation mist for inhalation amlodipine 10 mg tablet 10 mg PO DAILY #90 tab 01/10/21 01/29/21 Rx Patient History Medical History (Updated 06/02/21 @ 12:29 by Tony Whitt MD) Abnormal albumin Acute on chronic respiratory failure with hypoxemia Bullous emphysema Cancer Carotid stenosis, left Cerebral infarction CKD (chronic kidney disease) COPD (chronic obstructive pulmonary disease) Dyslipidemia Hypertension Idiopathic interstitial pneumonia Leukocytosis Pulmonary emphysema Surgical History History of appendectomy History of cataract surgery History of hernia repair History of laparoscopic cholecystectomy History of tonsillectomy and adenoidectomy Family History Unknown Diabetes Mother Stroke syndrome Father Coronary arteriosclerosis Denies family history of Ovarian cancer Prostate cancer Myocardial infarction Breast cancer Colorectal cancer Social History Smoking Status: Former smoker Tobacco Type: Cigarettes Age Started Using Tobacco: 19; Age Quit Using Tobacco: 54; packs per day: 2; Second Hand Exposure: Yes; Hx Alcohol Use: No Hx Substance Use: No Preferred Language: Georgian Communication Ability: Effective Visual Impairment: No Limitations Hearing Ability: Hard of Hearing Beliefs That Will Affect Care: None marital status: Current Living Situation: Spouse current occupational status: retired Feels Safe at Home: Yes Safety Concerns: Feels Safe At This Time Childhood Exposure to Second-Hand Smoke: Yes Dental Care, Regularly: Yes Physical Activity Frequency: Does not Exercise Seatbelt Use: always Sunscreen Use: No Assistive Devices: Oxygen - Continuous Review of Systems Review of Systems: All systems reviewed & are unremarkable except as noted in HPI & below Physical Exam Constitutional: WD/WN, vitals as above Neck: trachea midline, no thyromegaly Respiratory: Mild Velcro crackles noted in the bilateral lower lobes on expiration Cardiovascular: RRR, no murmur, no edema Gastrointestinal (Abdomen): normal bowel sounds, soft, nontender, no hepatosplenomegaly Musculoskeletal: no cyanosis or clubbing, extremities motor strength 5/5 Skin: no rashes, warm and dry Neurologic: PERRL, EOMI, accommodation nl, no face palsy, no dysarthria Psychiatric: A+Ox3, euthymic affect Results & Data Results & Data ([facility]) Vital Signs (Past 12 Hours) Vital Signs Temp Pulse Pulse Resp BP BP Pulse Ox 01/30/21 11:05 98.1 F 78 18 124/66 93 01/30/21 07:31 75 18 93 01/30/21 07:24 97.5 F L 77 20 126/71 95 01/30/21 07:00 70 01/30/21 03:35 97.9 F 70 18 111/69 95 01/30/21 00:17 81 18 91 01/30/21 00:04 69 PFT from 2017 reviewed: FEV1/FVC 75 FEV1 2.96 L, 142% predicted FVC 3.92 L, 134% predicted RV 32% predicted TLC 4.46 L, 82% predicted RV/TLC 37% predicted DLCO 36% predicted DL/VA 48% predicted Spirometric values do not correlate well with lung volumes. This could be related to pseudonormalization given a mixed pattern of obstructive and restrictive lung disease. His DLCO is very low which correlates with the severe emphysema noted on CT chest. Pulmonary vascular disease such as cor pulmonale is difficult to rule out. CT chest from November reviewed with findings of severe emphysema and lower lobe increased interstitial markings with mild traction bronchiectasis. Chest x-ray from this admission demonstrates mildly increased interstitial markings in the lower lobes bilaterally. PG Care Time/CCT Total # of Minutes Spent Total Time Spent with Patient: Total time spent is greater than 50% in coordination of care (as documented) at patient's floor/unit and/or counseling patient: Coding Level of Care Code 00712 Inpt Consult Level 5 Diagnoses Acute on chronic respiratory failure with hypoxemia J96.21 Idiopathic interstitial pneumonia J84.111 Pulmonary emphysema J43.9
[2021-01-30] MEDS ORDERED: AZITHROMYCIN 500 MG in DEXTROSE 5% 250 ML IV ONE (12:15)
[2021-01-30] MEDS ORDERED: LEVALBUTEROL HCL 1.25 MG/3 ML NEB ONE (13:14)
[2021-01-30] MEDS ORDERED: LEVALBUTEROL HCL 1.25 MG/3 ML NEB NEB PRN (14:11)
--- NOTE | 2021-01-30 15:18 | Hospitalist Progress Note ---
Date of Service January 30, 2021 Assessment & Plan (1) IPF (idiopathic pulmonary fibrosis): Patient presents with worsening shortness of breath, acute on chronic respiratory failure with hypoxemia, and a fever to 102.5 at home. Chest x-ray shows further progression of bibasilar pleural opacities which could be consistent with pneumonitis Improving on antibiotics -dc ZOsyn as no risk for gram negative PNA -start azithromycin 500mg IV x 1 today and then complete 5 day course with 250mg po once daily -appreciate PULM consult -start flutter valve, IS -continue supplemental O2 to keep POx>88% and wean back down to usual home O2 of 2LNC at rest and 5LNC with exertion -continue prednisone 40mg daily and long, slow taper as per PULM -continue inhalers (2) Acute on chronic respiratory failure with hypoxemia: as above (3) COPD (chronic obstructive pulmonary disease) with emphysema: as above (4) Hypertension: Blood pressure controlled Continue home amlodipine, aspirin (5) Dyslipidemia: Continue home fish oil (6) CKD (chronic kidney disease): CKD stage 3 Renal function is at baseline -Avoid nephrotoxins -renally dose meds when appropriate -follow BMP (7) DVT prophylaxis: SQ heparin Disposition-continued stay, but may be able to discharge to home in the next 1 to 2 days. Will need a two-step walking test prior to discharge to see if oxygen requirements have changed. Admission and Anticipated Discharge Date Admission Date: January 29, 2021 Subjective Patient reports feeling better than yesterday, cough is improved, no sputum with cough. No fever since arrival. Denies headache or lightheadedness, no chest pains or shortness of breath. This morning he was at 8 L by oxygen mask and now he is weaned back down to 5 L nasal cannula at rest. He denies any nausea or vomiting, no abdominal pain, no diarrhea. He did have pain in the backs of his calves when he had the fever at home. He has had some mild headaches but that is now improved. He has not been around anyone else been sick. Telemetry with normal sinus rhythm, first-degree AV block, normal rates, PVCs and PACs I discussed his case with pulmonology on-call Review of Systems Review of Systems: All systems reviewed & are unremarkable except as noted in HPI & below Physical Exam Constitutional: WD/WN, vitals as above Eyes: + anicteric sclerae Neck: trachea midline, no thyromegaly Respiratory: normal respiratory effort Auscultation: + crackles (Fine crackles at lower and middle lung gardner bilaterally); no rhonchi and no wheezes Cardiovascular: RRR, no murmur, no edema Chest (Breasts): Chest: normal inspection of chest Gastrointestinal (Abdomen): normal bowel sounds, soft, nontender, no hepatosplenomegaly Musculoskeletal: Extremities: extremities normal to inspection; no cyanosis and no clubbing Skin: no rashes, warm and dry Neurologic: moves all extremities and awake; no focal motor deficits Psychiatric: A+Ox3, euthymic affect Lymphatic: no lymphedema Results & Data Results & Data ([facility]) Vital Signs (Past 12 Hours) Vital Signs Temp Pulse Pulse Resp BP BP Pulse Ox 01/30/21 14:43 36.6 C 76 18 114/62 90 01/30/21 13:20 76 20 97 01/30/21 11:05 36.7 C 78 18 124/66 93 01/30/21 07:31 75 18 93 01/30/21 07:24 36.4 C L 77 20 126/71 95 01/30/21 07:00 70 01/30/21 03:35 36.6 C 70 18 111/69 95 Laboratory Results 01/30/21 01/30/21 Range/Units 08:37 08:37 WBC 5.62 (4.8-10.8) K/uL RBC 4.90 (4.7-6.1) M/uL Hgb 15.7 (14.0-18.0) g/dL Hct 44.4 (42-52) % MCV 90.6 (80-100) fL MCH 32.0 (25-34) pg MCHC 35.4 (32-36) g/dL RDW Std Deviation 45.6 (36.4-46.3) fL RDW Coeff of Matt 13.7 (11.5-14.5) % Plt Count 178 (130-400) K/uL MPV 11.0 H (7.4-10.4) fL Sodium 137 (136-145) mmol/L Potassium 3.8 (3.5-5.1) mmol/L Chloride 108 H (98-107) mmol/L Carbon Dioxide 22 (21-32) mmol/L Anion Gap 7.0 (3-11) BUN 22 H (7-18) mg/dl Creatinine 1.30 (0.6-1.4) mg/dl Est Cr Clr Drug Dosing 41.5 ml/min Est GFR ( Amer) 57.7 ml/min Est GFR (Non-Af Amer) 49.8 ml/min BUN/Creatinine Ratio 17.1 (10-20) Glucose 167 H (70-99) mg/dl Calcium 8.9 (8.5-10.1) mg/dl PG Care Time/CCT Total # of Minutes Spent Total Time Spent with Patient: Total time spent is greater than 50% in coordination of care (as documented) at patient's floor/unit and/or counseling patient: Coding Level of Care Code 39999 Subseq Hosp Care Lvl 3 Diagnoses IPF (idiopathic pulmonary fibrosis) J84.112 Acute on chronic respiratory failure with hypoxemia J96.21 COPD (chronic obstructive pulmonary disease) with emphysema J43.9 Hypertension I10 Dyslipidemia E78.5 CKD (chronic kidney disease) N18.9 DVT prophylaxis Z29.9
[2021-01-31] MEDS: HEPARIN SOD 5,000 UNIT/0.5 ML VIAL SQ SCH ×3 (04:54→21:40)
[2021-01-31 07:56] LABS: Calcium 9.3 mg/dl (8.5-10.1); Creatinine Clr Calc Pharmacy 46.2 ml/min; Est GFR (African American) 65.5 ml/min; Est GFR (Non-African American) 56.5 ml/min; Potassium 3.7 mmol/L (3.5-5.1)
[2021-01-31] MEDS: amLODIPine BESYLATE 5 MG TAB PO SCH (08:25)
[2021-01-31] MEDS: predniSONE 20 MG TAB PO SCH (08:25)
[2021-01-31] MEDS: OMEGA-3 (PURIFIED FISH OIL) 1 GM CAP PO SCH (08:25)
[2021-01-31] MEDS: ASPIRIN 81 MG ECTAB PO SCH (08:25)
[2021-01-31] MEDS: FLUTICASONE/VILANTEROL 100/25MCG 14 PUFFS/INHALER INH SCH (08:25)
[2021-01-31] MEDS: UMECLIDINIUM BROMIDE 62.5MCG/BLISTER 7 PUFFS/INHALER INH SCH (08:26)
[2021-01-31] MEDS: AZITHROMYCIN 250 MG TAB PO SCH (13:59)
--- NOTE | 2021-01-31 16:07 | Hospitalist Progress Note ---
Date of Service January 31, 2021 Assessment & Plan (1) IPF (idiopathic pulmonary fibrosis): Patient presents with worsening shortness of breath, acute on chronic respiratory failure with hypoxemia, and a fever to 102.5 at home. Chest x-ray shows further progression of bibasilar pleural opacities which could be consistent with pneumonitis Improving on antibiotics, no further fevers since admission Still remains on higher levels of O2 than baseline Minimal nonproductive cough. Initially on ZOsyn x 24 hrs which was then dcd as no risk for gram negative PNA -cont azithromycin 250mg po once daily x total 5 day course -appreciate PULM consult -continue flutter valve, IS -continue supplemental O2 to keep POx>88% and wean back down to usual home O2 of 2LNC at rest and 5LNC with exertion -continue prednisone 40mg daily and long, slow taper as per PULM -continue inhalers (2) Acute on chronic respiratory failure with hypoxemia: as above, improved but still POx 88% on 5L at rest continue treatment as above (3) COPD (chronic obstructive pulmonary disease) with emphysema: as above (4) Hypertension: Blood pressure controlled Continue home amlodipine, aspirin (5) Dyslipidemia: Continue home fish oil (6) CKD (chronic kidney disease): CKD stage 3 Renal function is at baseline -Avoid nephrotoxins -renally dose meds when appropriate (7) DVT prophylaxis: SQ heparin Disposition-continued stay, but may be able to discharge to home in the next 1 to 2 days if O2 requirement improves. Will need a two-step walking test prior to discharge to see if oxygen requirements have changed. Admission and Anticipated Discharge Date Admission Date: January 29, 2021 Subjective Pt feels ok, no SOB, no CP. Remains on 5L Oxymask and POx 88%. No fevers since time of admission. Is eating and appetite seems to be a little better. Having normal BMs, urinating. No other issues today. No sputum production and cough minimal Tele with NSR, PACs 1st degree AVB, rates 70s Review of Systems Review of Systems: All systems reviewed & are unremarkable except as noted in HPI & below Physical Exam Constitutional: WD/WN, vitals as above Eyes: + anicteric sclerae Neck: trachea midline, no thyromegaly Respiratory: normal respiratory effort Auscultation: + crackles (Fine crackles at lower and middle lung gardner bilaterally); no rhonchi and no wheezes Cardiovascular: RRR, no murmur, no edema Chest (Breasts): Chest: normal inspection of chest Gastrointestinal (Abdomen): normal bowel sounds, soft, nontender, no hepatosplenomegaly Musculoskeletal: Extremities: extremities normal to inspection; no cyanosis and no clubbing Skin: no rashes, warm and dry Neurologic: moves all extremities and awake; no focal motor deficits Psychiatric: A+Ox3, euthymic affect Lymphatic: no lymphedema Results & Data Results & Data ([facility]) Vital Signs (Past 12 Hours) Vital Signs Temp Pulse Pulse Resp BP Pulse Ox 01/31/21 15:36 36.6 C 74 16 138/70 88 L 01/31/21 11:24 36.9 C 78 16 128/62 88 L 01/31/21 08:00 73 01/31/21 07:32 36.5 C 69 20 136/66 92 01/31/21 04:12 71 Laboratory Results 01/31/21 Range/Units 07:12 Sodium 139 (136-145) mmol/L Potassium 3.7 (3.5-5.1) mmol/L Chloride 107 (98-107) mmol/L Carbon Dioxide 26 (21-32) mmol/L Anion Gap 6.0 (3-11) BUN 22 H (7-18) mg/dl Creatinine 1.17 (0.6-1.4) mg/dl Est Cr Clr Drug Dosing 46.2 ml/min Est GFR ( Amer) 65.5 ml/min Est GFR (Non-Af Amer) 56.5 ml/min BUN/Creatinine Ratio 19.0 (10-20) Glucose 94 (70-99) mg/dl Calcium 9.3 (8.5-10.1) mg/dl PG Care Time/CCT Total # of Minutes Spent Total Time Spent with Patient: Total time spent is greater than 50% in coordination of care (as documented) at patient's floor/unit and/or counseling patient: Coding Level of Care Code 17405 Subseq Hosp Care Lvl 2 Diagnoses IPF (idiopathic pulmonary fibrosis) J84.112 Acute on chronic respiratory failure with hypoxemia J96.21 COPD (chronic obstructive pulmonary disease) with emphysema J43.9 Hypertension I10 Dyslipidemia E78.5 CKD (chronic kidney disease) N18.9 DVT prophylaxis Z29.9
[2021-02-01] MEDS: HEPARIN SOD 5,000 UNIT/0.5 ML VIAL SQ SCH ×2 (05:51→13:11)
[2021-02-01] MEDS: amLODIPine BESYLATE 5 MG TAB PO SCH (07:27)
[2021-02-01] MEDS: ASPIRIN 81 MG ECTAB PO SCH (07:27)
[2021-02-01] MEDS: OMEGA-3 (PURIFIED FISH OIL) 1 GM CAP PO SCH (07:27)
[2021-02-01] MEDS: UMECLIDINIUM BROMIDE 62.5MCG/BLISTER 7 PUFFS/INHALER INH SCH (07:27)
[2021-02-01] MEDS: predniSONE 20 MG TAB PO SCH (07:27)
[2021-02-01] MEDS: FLUTICASONE/VILANTEROL 100/25MCG 14 PUFFS/INHALER INH SCH (07:28)
[2021-02-01] MEDS: AZITHROMYCIN 250 MG TAB PO SCH (13:11)
--- NOTE | 2021-02-01 15:20 | Pulmonology Progress Note ---
Date of Service February 01, 2021 Assessment & Plan (1) Acute on chronic respiratory failure with hypoxemia: 85-year-old male with a past medical history of pulmonary emphysema, BPH and chronic hypoxic respiratory failure who was in the hospital due to worsening hypoxia and shortness of breath. Shortness of breath and hypoxia: He does have severe underlying emphysema and findings consistent with interstitial lung disease including bibasilar predominant subpleural reticulation and honeycombing. Mild traction bronchiectasis was also seen on the CT chest from November 2020. The differential for these type of radiographic findings can include UIP/IPF, CPFE (combined pulmonary fibrosis and emphysema) and occasionally chronic hypersensitivity pneumonitis. I suspect that he has a flare of his underlying idiopathic interstitial pneumonia and I agree with prednisone treatment. Recommend a prednisone taper over 10 days and continue at a dose of 10 mg daily until he is seen in the pulmonary clinic. Updated PFTs in the outpatient setting may be beneficial. Please continue his home inhaler regimen upon discharge. Hypoxia: Target SPO2 88 to 92%. He is normally on 2 to 5 L of oxygen at home. Patient is stable for discharge. This was discussed with his hospitalist, Dr. Medellin. (2) Idiopathic interstitial pneumonia: (3) Pulmonary emphysema: Admission and Anticipated Discharge Date Admission Date: January 29, 2021 Subjective Patient seen examined today. Denies any significant shortness of breath beyond his usual. He feels that he is back to his baseline. He was able to walk to the bathroom without any significant breathlessness. He is on 5 L of oxygen which is what he normally uses at home. He denies any pain anywhere. He is r radha to go home. Review of Systems Review of Systems: All systems reviewed & are unremarkable except as noted in HPI & below Physical Exam Constitutional: WD/WN, vitals as above Neck: trachea midline, no thyromegaly Respiratory: Mild Velcro crackles noted in the bilateral lower lobes on expiration Cardiovascular: RRR, no murmur, no edema Gastrointestinal (Abdomen): normal bowel sounds, soft, nontender, no hepatosplenomegaly Musculoskeletal: no cyanosis or clubbing, extremities motor strength 5/5 Skin: no rashes, warm and dry Neurologic: PERRL, EOMI, accommodation nl, no face palsy, no dysarthria Psychiatric: A+Ox3, euthymic affect Results & Data Results & Data ([facility]) Vital Signs (Past 12 Hours) Vital Signs Temp Pulse Pulse Resp BP BP Pulse Ox 02/01/21 14:52 97.9 F 65 18 124/71 92 02/01/21 11:17 97.5 F L 65 18 120/70 93 02/01/21 07:22 97.5 F L 58 L 18 143/85 H 90 02/01/21 07:00 54 L 02/01/21 03:38 97.5 F L 60 19 133/84 90 Vital signs, labs and imaging reviewed. PG Care Time/CCT Total # of Minutes Spent Total Time Spent with Patient: Total time spent is greater than 50% in coordination of care (as documented) at patient's floor/unit and/or counseling patient: Coding Level of Care Code 75800 Subseq Hosp Care Lvl 2 Diagnoses Acute on chronic respiratory failure with hypoxemia J96.21 Idiopathic interstitial pneumonia J84.111 Pulmonary emphysema J43.9
--- NOTE | 2021-02-01 15:49 | Discharge Summary ---
Date of Service February 01, 2021 Admission HPI Per Admitting Provider This is a pleasant 85 yo male with PMH described below who comes into the ER with Shortness of breath at rest and complaints of fever up to 102.5 last evening.. He denies any cough, chills, N/V. He reports he normally uses supplemental oxygen : 2L NC at rest, 5 liters on exertion Symptoms began yesterday. They did not get better which prompted him to come in to the hospital. Principal Diagnosis COPD exacerbation, interstitial pneumonitis, fever Discharge Exam Constitutional WD/WN, vitals as above Eyes + anicteric sclerae Neck trachea midline, no thyromegaly Respiratory normal respiratory effort Auscultation: + crackles (Fine crackles at lower and middle lung gardner bilaterally); no rhonchi and no wheezes Cardiovascular RRR, no murmur, no edema Chest (Breasts) Chest: normal inspection of chest Gastrointestinal (Abdomen) normal bowel sounds, soft, nontender, no hepatosplenomegaly Musculoskeletal Extremities: extremities normal to inspection; no cyanosis and no clubbing Skin no rashes, warm and dry Neurologic moves all extremities and awake; no focal motor deficits Psychiatric A+Ox3, euthymic affect Lymphatic no lymphedema Discharge Data Allergies Allergy/AdvReac Type Severity Reaction Status Date / Time blueberry Allergy Intermediate HIVES Verified 01/29/21 15:16 Consultations 01/29/21 16:01 ED Decision to Admit Stat 01/30/21 10:46 Consult Pulmonology Routine Ordered Studies Chest X-Ray 01/29/21 12:27 XR chest 1V portable CLINICAL HISTORY: Fever COMPARISON STUDY: 11/05/2020 FINDINGS: The heart is mildly enlarged. There is slight progression in the bilateral reticular opacities with a lower lung zone predominance. There are also nodular opacities within the right upper lobe likely postinflammatory. Calcifications within the proximal left humerus, likely are secondary to a bone infarct although a chondroid lesion could appear similar.[ IMPRESSION: 1. Further progression in the reticular opacities with a basilar predominance. While likely representing progressive pulmonary fibrosis, an acute interstitial pneumonitis could appear similar 2. Stable right apical nodular scarring 3. Stable mild cardiomegaly ACT 112: Negative or not required by law. Electronically signed by: Jaun Chakraborty M.D. 01/29/2021 12:57 PM Hospital Course (1) IPF (idiopathic pulmonary fibrosis): Patient presents with worsening shortness of breath, acute on chronic respiratory failure with hypoxemia, and a fever to 102.5 at home. Chest x-ray shows further progression of bibasilar pleural opacities which could be consistent with pneumonitis Improving on antibiotics, no further fevers since admission Still remains on higher levels of O2 than baseline but stable for discharged home on 5 L nasal cannula Minimal nonproductive cough which is now much improved Initially on ZOsyn x 24 hrs which was then dcd as no risk for gram negative PNA -cont azithromycin 250mg po once daily x total 5 day course-finish out 2 more days after discharge -appreciate PULM consult -continue flutter valve, IS upon discharge -continue supplemental O2 to keep POx>88% and wean back down to usual home O2 of 2LNC at rest and 5LNC with exertion after [id number] with pulmonology -continue prednisone 40mg daily and taper down by 10 mg every 2 days and then stay on 10 mg daily indefinitely as per pulmonology recommendation -continue usual maintenance inhalers and bronchodilators as needed via nebulizer Follow-up with pulmonology in the office in 2 to 3 weeks. (2) Acute on chronic respiratory failure with hypoxemia: as above, improved and remains on 5L at rest. Was requiring 8 to 9 L upon admission continue treatment as above (3) COPD (chronic obstructive pulmonary disease) with emphysema: as above (4) Hypertension: Blood pressure controlled Continue home amlodipine, aspirin (5) Dyslipidemia: Continue home fish oil (6) CKD (chronic kidney disease): CKD stage 3 Renal function is at baseline -Avoid nephrotoxins -renally dose meds when appropriate (7) DVT prophylaxis: SQ heparin Disposition-stable for discharge to home Total Time Total Time Spent Total Time Spent (In Minutes): 35 min Total Time Includes: Examination of the Patient, Discharge Planning, Medication Reconciliation and Communication With Other Providers (PULM) Discharge Plan Discharge Items Patient Disposition: Home - Self-Care Reason For Visit: COPD EXACERBATION Discharge Diagnosis: COPD Exacerbation Acute on chronic respiratory failure with hypoxemia Condition on Discharge: Fair Activity: Resume your previous activity Non-emergency contact: Primary Care Provider and [employer] Call non-emergency contact if: you have any medication questions and your sy mptoms worsen Follow-up/Referrals: Tk Almeida DO [Primary Care Provider] - (Follow-up within 1 to 2 weeks.) Tony Whitt MD [Physician] - (Please make a follow-up appointment in 2 to 3 weeks.) Diet: Heart Healthy Addtl Attending Provider Instructions: Please finish out 2 more days of the antibiotic called azithromycin. Please c ontinue the prednisone taper at 40 mg a day and decrease by 10 mg a day every 2 days until you get down to 10 mg daily. Please remain on 10 mg once a day indefinitely. You will need to remain on your oxygen at 5 L continuously for now. Please keep an eye on your pulse oximeter on your finger at home and let your doctor know if your pulse ox goes below 88%. Please follow-up with the tree specialist within 2 to 3 weeks. Please follow-up with your primary care physician within 1 to 2 weeks. Pending Studies at Discharge: Yes Stand-Alone Forms: [facility] Medications and DC Order Prescriptions: New azithromycin 250 mg Tablet 250 mg PO DAILY Qty: 2 RF: 0 prednisone 10 mg tablet 40 mg PO DAILY Qty: 42 RF: 0 Continued albuterol sulfate 90 mcg/actuation HFA aerosol inhaler 2 - 4 puff Inhalation Q6H PRN (Reason: Shortness Of Breath Or Wheezing) Qty: 18 RF: 5 ipratropium-albuterol 0.5 mg-3 mg(2.5 mg base)/3 mL solution for nebulization 3 ml inhalation Q4H PRN (Reason: shortness of breath or wheezing) Qty: 180 RF: 5 Symbicort 160-4.5 mcg/actuation HFA aerosol inhaler 2 inh INH BID Qty: 10.2 RF: 5 amlodipine 10 mg tablet 10 mg PO DAILY Qty: 90 RF: 3 Spiriva Respimat 2.5 mcg/actuation mist 2 inh inhalation QAM Qty: 4 RF: 5 aspirin [Aspirin Low Dose] 81 mg Tablet,Delayed Release (Dr/Ec) 81 mg PO QAM RF: 0 omega [id number]-fish oil [Fish Oil] 1,000 mg (120 mg-180 mg) Capsule 1 cap PO QAM RF: 0 Discharge Orders: Discharge Order (Routine); Ordered 02/01/21 Ordered By: Jayna Medellin Admission Data Admit Date/Time: 01/29/21 17:44 Attending Provider: Jayna Medellin Admit Provider: Moses Jacob Primary Care Provider: Tk Almeida Other Providers: Moses Jacob ; Tony Whitt Coding Level of Care Code D/C Day Management >30 mins Diagnoses IPF (idiopathic pulmonary fibrosis) J84.112 Acute on chronic respiratory failure with hypoxemia J96.21 COPD (chronic obstructive pulmonary disease) with emphysema J43.9 Hypertension I10 Dyslipidemia E78.5 CKD (chronic kidney disease) N18.9 DVT prophylaxis Z29.9
== END 2021-02-01 17:19 | disposition home or self-care (01) | DRG 196 ==
LOC: ED 12:10 → 2W 17:44 → SUATTDRO 17:44 → 2W 18:46

== ENCOUNTER 2021-02-05 08:07 | Inpatient (IN) ==
[2021-02-05] MEDS ORDERED: ACETAMINOPHEN 500 MG TAB PO STA (08:16)
[2021-02-05] MEDS ORDERED: CEFEPIME 2,000 MG/20 ML VIAL IV STA (08:16)
--- NOTE | 2021-02-05 08:27 | Emergency Department Note ---
Impression & Plan Acute on chronic respiratory failure with hypoxemia, SOB (shortness of breath), Fever ED Provider Note INFORMANT: Patient ED PROVIDER(S): Gio Umana MD CHIEF COMPLAINT: SOB PLAN: Disposition: Admitted Condition: Good Outpatient prescription management: none Referral: none MEDICAL DECISION MAKING: Patient presented with worsening shortness of breath. He had increased oxygen requirements. The patient was given hour-long DuoNeb and Solu-Medrol. His white blood cell count was mildly elevated at 11.3. His kidney function was within normal limits. He was mildly dehydrated. LFTs were mildly elevated but that was consistent with prior. BNP was elevated as well. EKG did not show anything acute. The patient had a fever. He was given Tylenol. Patient was also treated with a dose of IV cefepime. This was done after blood cultures. The patient underwent CT imaging of the chest. Advanced emphysematous changes were noted. The patient will need further management in the hospital for what appears to be acute on chronic respiratory failure. He also has a fever that needs further evaluation. I gave my usual and customary discussion regarding this issue. Patient was in agreement. Consultation was made with Dr. Mccann. Patient was evaluated in the ER for further management. Triage Nursing notes reviewed and agree them. Vital Signs: reviewed and remarkable for hypoxia Differential diagnosis: Reactive airway disease, pneumonia, pneumothorax, COPD, CHF, infections, cardiac ischemia, pulmonary embolism, musculoskeletal, gastrointestinal, as well as other pathologies. Diagnostics interpreted by me: ECG: Twelve-lead ECG reveals a sinus rhythm with first-degree AV block at 85 bpm. PACs present. No ST elevation or depression. Normal axis. Cardiac Monitoring: Cardiac monitoring ordered by me: The patient was placed on continuous cardiac monitoring and observed. It revealed a normal sinus rhythm at 65 beats per minute without ectopy or evidence of dysrhythmia. Imaging studies: Chest x-ray reveals emphysematous and chronic appearing changes. CT PE study reveals no evidence of pulmonary embolism. Significant emphysematous changes noted. I refer you to the EMR for further details. HPI: The patient is a 85 year old male who presents to the Emergency Room with complaints of SOB. This started again yesterday and is worsening. The patient also notes the following associated symptoms, increasing oxygen requirements, fever, diarrhea, and chills. Patient notes 2 episodes of diarrhea. The patient has increased his oxygen for relieving factors. Current pain is rated as 0/10. EMS gave the patient a DuoNeb and 125 mg of Solu-Medrol. They noted that his oxygen saturations were 86% on 6 L. Patient normally wears 2 L. Patient has significant KERR. Pt denies LOC, headache,diaphoresis, visual changes, neck pain, chest pain, nausea, vomiting, abdominal pain, back pain, melena, hematochezia, urinary symptoms, numbness, weakness, lymphadenopathy, rash, or other complaints. ROS: See above HPI for pertinent positives & negatives. A total of 10 systems reviewed and were otherwise negative. PAST MEDICAL HISTORY:See Below , pulmonary fibrosis PAST SURGICAL HISTORY:See Below, FAMILY HISTORY:See Below SOCIAL HISTORY:See Below, former smoker HOME MEDICATIONS:See Below ALLERGIES:See Below VITALS:See Below PHYSICAL EXAMINATION: GENERAL: Awake, alert, mildly dyspneic-appearing, in no distress HENT: Normocephalic, atraumatic. Oropharynx unremarkable. EYES: Normal conjunctiva. Sclera non-icteric. NECK: Inspection normal. Non-tender. Supple. No nuchal rigidity. FROM. No masses. RESPIRATORY: Scattered crackles. Increased respiratory effort. CARDIAC: Normal rate. Normal rhythm. No murmurs. No rubs. Extremities warm and well perfused. Pulses equal. No JVD. GI: Soft, non-distended. No tenderness to palpation. No rebound or guarding. No masses. RECTAL: Deferred. MUSCULOSKELETAL: Atraumatic. Chest examination reveals no tenderness. The back is symmetrical on inspection without obvious abnormality. There is no CVA tenderness to palpation. No joint edema. LOWER EXTREMITIES: Calves are equal size bilaterally and non-tender. No edema. No discoloration. NEURO: Normal sensorium. No sensory or motor deficits noted. SKIN: No rash or jaundice noted. Gio Umana MD Past Med/Surg History Medical History Abnormal albumin Acute on chronic respiratory failure with hypoxemia Bullous emphysema Cancer Carotid stenosis, left Cerebral infarction CKD (chronic kidney disease) COPD (chronic obstructive pulmonary disease) Dyslipidemia Hypertension Idiopathic interstitial pneumonia Pulmonary emphysema Surgical History History of appendectomy History of cataract surgery History of hernia repair History of laparoscopic cholecystectomy History of tonsillectomy and adenoidectomy Family History Unknown Diabetes Mother Stroke syndrome Father Coronary arteriosclerosis Denies family history of Ovarian cancer Prostate cancer Myocardial infarction Breast cancer Colorectal cancer Social History Smoking Status: Former smoker Tobacco Type: Cigarettes Age Started Using Tobacco: 19; Age Quit Using Tobacco: 54; packs per day: 2; Second Hand Exposure: Yes; Hx Alcohol Use: No Hx Substance Use: No Preferred Language: Amharic Communication Ability: Effective Visual Impairment: No Limitations Hearing Ability: Hard of Hearing Beliefs That Will Affect Care: None marital status: Current Living Situation: Spouse current occupational status: retired Feels Safe at Home: Yes Childhood Exposure to Second-Hand Smoke: Yes Dental Care, Regularly: Yes Physical Activity Frequency: Does not Exercise Seatbelt Use: always Sunscreen Use: No Assistive Devices: Oxygen - Continuous Allergies Allergies Allergy/AdvReac Type Severity Reaction Status Date / Time blueberry Allergy Intermediate HIVES Verified 02/05/21 09:27 Home Meds Home Medications Medication Instructions Recorded Confirmed aspirin [Aspirin Low Dose] 81 mg PO QAM 05/31/18 02/05/21 omega 9-ppr-ldy-fish oil [Fish Oil] 1 cap PO QAM 05/31/18 02/05/21 amlodipine 10 mg PO QAM 02/05/21 02/05/21 Previous Rx's Medication Instructions Recorded albuterol sulfate 90 mcg/actuation 2 - 4 puff INHALATION Q6H PRN #18 g 04/16/20 aerosol inhaler ipratropium 0.5 mg-albuterol 3 mg 3 ml INHALATION Q4H PRN #180 vial 09/18/20 (2.5 mg base)/3 mL nebulization soln budesonide-formoterol HFA 160 2 inh INH BID #10.2 g 10/15/20 mcg-4.5 mcg/actuation aerosol inhaler tiotropium bromide 2.5 2 inh INHALATION QAM #4 g 11/07/20 mcg/actuation mist for inhalation prednisone 40 mg PO DAILY #42 tab 02/01/21 Results & Data (ED) Vital Signs Vital Signs - 24 hr 02/05/21 08:15 02/05/21 08:16 02/05/21 08:21 Temperature 38.6 C H Temperature Source Oral Pulse Rate 82 81 81 Pulse Rate [Apical] Pulse Rate from SpO2 Sensor 80 81 Pulse Rhythm Regular Pulse Strength Normal Respiratory Rate 29 H 20 27 H Respiratory Effort / Characteristics Spontaneous Short of Breath SOB on Exertion Respiratory Pattern Blood Pressure 127/70 127/70 Blood Pressure Mean 89 89 Blood Pressure Position Lying Pulse Oximetry 92 92 93 Oxygen Delivery Method Nasal Cannula Oxygen Flow Rate 4 Sepsis Recent Fever Within 48 Hours Yes Sepsis New/Unexplained Change in Mental Status No Sepsis Action Taken by Nursing Physician Notified Oxygen Flow Rate - Titration 4 Pulse Oximetry Post Tiitration 92 02/05/21 08:30 02/05/21 08:45 02/05/21 09:00 Temperature Temperature Source Pulse Rate 78 75 73 Pulse Rate [Apical] Pulse Rate from SpO2 Sensor 78 Pulse Rhythm Pulse Strength Respiratory Rate 31 H 34 H 28 H Respiratory Effort / Characteristics Spontaneous Short of Breath Respiratory Pattern Tachypnea Blood Pressure 119/58 L 112/61 110/60 Blood Pressure Mean 78 78 76 Blood Pressure Position Pulse Oximetry 90 Oxygen Delivery Method Nasal Cannula Oxygen Flow Rate 4 Sepsis Recent Fever Within 48 Hours Sepsis New/Unexplained Change in Mental Status Sepsis Action Taken by Nursing Oxygen Flow Rate - Titration Pulse Oximetry Post Tiitration 02/05/21 09:15 02/05/21 09:30 02/05/21 09:31 Temperature Temperature Source Pulse Rate 76 71 69 Pulse Rate [Apical] Pulse Rate from SpO2 Sensor Pulse Rhythm Pulse Strength Respiratory Rate 30 H 30 H 27 H Respiratory Effort / Characteristics Respiratory Pattern Blood Pressure 107/53 L 104/56 L Blood Pressure Mean 71 72 Blood Pressure Position Pulse Oximetry Oxygen Delivery Method Oxygen Flow Rate Sepsis Recent Fever Within 48 Hours Sepsis New/Unexplained Change in Mental Status Sepsis Action Taken by Nursing Oxygen Flow Rate - Titration Pulse Oximetry Post Tiitration 02/05/21 09:53 02/05/21 10:00 02/05/21 10:15 Temperature Temperature Source Pulse Rate 71 77 Pulse Rate [Apical] 71 Pulse Rate from SpO2 Sensor 71 77 Pulse Rhythm Pulse Strength Respiratory Rate 28 H 26 H 23 Respiratory Effort / Characteristics Spontaneous Respiratory Pattern Blood Pressure 107/58 L 113/60 Blood Pressure Mean 74 77 Blood Pressure Position Pulse Oximetry 94 93 93 Oxygen Delivery Method Oxymask Oxygen Flow Rate 10 Sepsis Recent Fever Within 48 Hours Sepsis New/Unexplained Change in Mental Status Sepsis Action Taken by Nursing Oxygen Flow Rate - Titration Pulse Oximetry Post Tiitration 02/05/21 10:30 02/05/21 11:46 02/05/21 12:01 Temperature Temperature Source Pulse Rate 78 Pulse Rate [Apical] Pulse Rate from SpO2 Sensor 85 78 79 Pulse Rhythm Pulse Strength Respiratory Rate 20 22 Respiratory Effort / Characteristics Respiratory Pattern Blood Pressure 122/58 L 120/63 109/67 Blood Pressure Mean 79 82 81 Blood Pressure Position Pulse Oximetry 95 95 95 Oxygen Delivery Method Oxygen Flow Rate 8 8 Sepsis Recent Fever Within 48 Hours Sepsis New/Unexplained Change in Mental Status Sepsis Action Taken by Nursing Oxygen Flow Rate - Titration Pulse Oximetry Post Tiitration 02/05/21 12:15 02/05/21 12:30 02/05/21 12:45 Temperature Temperature Source Pulse Rate 79 71 73 Pulse Rate [Apical] Pulse Rate from SpO2 Sensor 79 74 74 Pulse Rhythm Pulse Strength Respiratory Rate 21 20 21 Respiratory Effort / Characteristics Respiratory Pattern Blood Pressure 125/69 110/70 110/70 Blood Pressure Mean 87 83 83 Blood Pressure Position Pulse Oximetry 96 93 95 Oxygen Delivery Method Oxygen Flow Rate 8 8 8 Sepsis Recent Fever Within 48 Hours Sepsis New/Unexplained Change in Mental Status Sepsis Action Taken by Nursing Oxygen Flow Rate - Titration Pulse Oximetry Post Tiitration 02/05/21 13:00 02/05/21 13:15 02/05/21 13:45 Temperature Temperature Source Pulse Rate 68 65 Pulse Rate [Apical] Pulse Rate from SpO2 Sensor 69 65 68 Pulse Rhythm Pulse Strength Respiratory Rate 22 21 Respiratory Effort / Characteristics Respiratory Pattern Blood Pressure 106/69 107/62 116/66 Blood Pressure Mean 81 77 82 Blood Pressure Position Pulse Oximetry 94 94 94 Oxygen Delivery Method Oxygen Flow Rate 8 8 8 Sepsis Recent Fever Within 48 Hours Sepsis New/Unexplained Change in Mental Status Sepsis Action Taken by Nursing Oxygen Flow Rate - Titration Pulse Oximetry Post Tiitration 02/05/21 14:00 02/05/21 14:15 02/05/21 14:30 Temperature Temperature Source Pulse Rate Pulse Rate [Apical] Pulse Rate from SpO2 Sensor 65 61 69 Pulse Rhythm Pulse Strength Respiratory Rate Respiratory Effort / Characteristics Respiratory Pattern Blood Pressure 110/69 107/63 107/60 Blood Pressure Mean 82 77 75 Blood Pressure Position Pulse Oximetry 91 92 92 Oxygen Delivery Method Oxygen Flow Rate 8 8 8 Sepsis Recent Fever Within 48 Hours Sepsis New/Unexplained Change in Mental Status Sepsis Action Taken by Nursing Oxygen Flow Rate - Titration Pulse Oximetry Post Tiitration 02/05/21 14:45 02/05/21 15:00 02/05/21 15:15 Temperature Temperature Source Pulse Rate Pulse Rate [Apical] Pulse Rate from SpO2 Sensor 68 66 62 Pulse Rhythm Pulse Strength Respiratory Rate Respiratory Effort / Characteristics Respiratory Pattern Blood Pressure 116/73 119/73 116/70 Blood Pressure Mean 87 88 85 Blood Pressure Position Pulse Oximetry 96 94 94 Oxygen Delivery Method Oxygen Flow Rate 8 8 8 Sepsis Recent Fever Within 48 Hours Sepsis New/Unexplained Change in Mental Status Sepsis Action Taken by Nursing Oxygen Flow Rate - Titration Pulse Oximetry Post Tiitration Laboratory Data Result diagrams: 02/05/21 09:04 02/05/21 09:04 Lab Results 02/05/21 02/05/21 02/05/21 Range/Units 08:40 08:40 09:04 WBC 11.39 H (4.8-10.8) K/uL RBC 4.86 (4.7-6.1) M/uL Hgb 15.5 (14.0-18.0) g/dL Hct 45.0 (42-52) % MCV 92.6 (80-100) fL MCH 31.9 (25-34) pg MCHC 34.4 (32-36) g/dL RDW Std Deviation 49.9 H (36.4-46.3) fL RDW Coeff of Matt 14.8 H (11.5-14.5) % Plt Count 177 (130-400) K/uL MPV 10.6 H (7.4-10.4) fL Immature Gran % (Auto) 4.7 % Neut % (Auto) 79.9 % Lymph % (Auto) 8.0 % [place] % (Auto) 7.2 % Eos % (Auto) 0.1 % Baso % (Auto) 0.1 % Neut # (Auto) 9.11 H (1.4-6.5) K/uL Lymph # (Auto) 0.91 L (1.2-3.4) K/uL [place] # (Auto) 0.82 H (0.11-0.59) K/uL Eos # (Auto) 0.01 (0-0.5) K/uL Baso # (Auto) 0.01 (0-0.2) K/uL Immature Gran # (Auto) 0.53 H (0.00-0.02) K/uL Sodium (136-145) mmol/L Potassium (3.5-5.1) mmol/L Chloride (98-107) mmol/L Carbon Dioxide (21-32) mmol/L Anion Gap (3-11) BUN (7-18) mg/dl Creatinine (0.6-1.4) mg/dl Est Cr Clr Drug Dosing ml/min Est GFR ( Amer) ml/min Est GFR (Non-Af Amer) ml/min BUN/Creatinine Ratio (10-20) Glucose (70-99) mg/dl Lactate (0.4-2.0) mmol/L Calcium (8.5-10.1) mg/dl Magnesium (1.8-2.4) mg/dl Total Bilirubin (0.2-1) mg/dl AST (15-37) U/L ALT (12-78) U/L Alkaline Phosphatase (45-117) U/L Troponin I (0-0.045) ng/ml NT-Pro-B Natriuret Pep (0-1800) pg/ml Total Protein (6.4-8.2) gm/dl Albumin (3.4-5.0) gm/dl Globulin (2.5-4.0) gm/dl Albumin/Globulin Ratio (0.9-2) Urine Color Urine Appearance (Clear) Urine pH (4.5-7.5) Ur Specific [place] (1.000-1.030) Urine Protein (Negative) Urine Glucose (UA) (Negative) Urine Ketones (Negative) Urine Blood (Negative) Urine Nitrite (Negative) Urine Bilirubin (Negative) Urine Urobilinogen (Negative) Ur Leukocyte Esterase (Negative) Urine WBC (Auto) (0-5) /hpf Urine RBC (Auto) (0-4) /hpf U Hyaline Cast (Auto) (0-5) /lpf U Epithel Cells (Auto) (0-5) /lpf Urine Bacteria (Auto) (Negative) COVID-19 Eval Order Covid19 at [facility] SARS-CoV-2 (PCR) NEGATIVE (Negative) 02/05/21 02/05/21 02/05/21 Range/Units 09:04 09:04 12:10 WBC (4.8-10.8) K/uL RBC (4.7-6.1) M/uL Hgb (14.0-18.0) g/dL Hct (42-52) % MCV (80-100) fL MCH (25-34) pg MCHC (32-36) g/dL RDW Std Deviation (36.4-46.3) fL RDW Coeff of Matt (11.5-14.5) % Plt Count (130-400) K/uL MPV (7.4-10.4) fL Immature Gran % (Auto) % Neut % (Auto) % Lymph % (Auto) % [place] % (Auto) % Eos % (Auto) % Baso % (Auto) % Neut # (Auto) (1.4-6.5) K/uL Lymph # (Auto) (1.2-3.4) K/uL [place] # (Auto) (0.11-0.59) K/uL Eos # (Auto) (0-0.5) K/uL Baso # (Auto) (0-0.2) K/uL Immature Gran # (Auto) (0.00-0.02) K/uL Sodium 133 L (136-145) mmol/L Potassium 3.8 (3.5-5.1) mmol/L Chloride 103 (98-107) mmol/L Carbon Dioxide 21 (21-32) mmol/L Anion Gap 9.0 (3-11) BUN 34 H (7-18) mg/dl Creatinine 1.27 (0.6-1.4) mg/dl Est Cr Clr Drug Dosing 43.7 ml/min Est GFR ( Amer) 59.3 ml/min Est GFR (Non-Af Amer) 51.2 ml/min BUN/Creatinine Ratio 27.1 H (10-20) Glucose 106 H (70-99) mg/dl Lactate 1.0 (0.4-2.0) mmol/L Calcium 8.4 L (8.5-10.1) mg/dl Magnesium 2.1 (1.8-2.4) mg/dl Total Bilirubin 1.8 H (0.2-1) mg/dl AST 45 H (15-37) U/L ALT 83 H (12-78) U/L Alkaline Phosphatase 77 (45-117) U/L Troponin I 0.030 (0-0.045) ng/ml NT-Pro-B Natriuret Pep 4350 H (0-1800) pg/ml Total Protein 6.7 (6.4-8.2) gm/dl Albumin 3.2 L (3.4-5.0) gm/dl Globulin 3.5 (2.5-4.0) gm/dl Albumin/Globulin Ratio 0.9 (0.9-2) Urine Color Yellow Urine Appearance Clear (Clear) Urine pH 5.0 (4.5-7.5) Ur Specific [place] 1.018 (1.000-1.030) Urine Protein 1+ H (Negative) Urine Glucose (UA) Negative (Negative) Urine Ketones Negative (Negative) Urine Blood Negative (Negative) Urine Nitrite Negative (Negative) Urine Bilirubin Negative (Negative) Urine Urobilinogen Negative (Negative) Ur Leukocyte Esterase Negative (Negative) Urine WBC (Auto) 1-5 (0-5) /hpf Urine RBC (Auto) 0-4 (0-4) /hpf U Hyaline Cast (Auto) 0 (0-5) /lpf U Epithel Cells (Auto) 0-5 (0-5) /lpf Urine Bacteria (Auto) Negative (Negative) COVID-19 Eval Order SARS-CoV-2 (PCR) (Negative) Administered Medications Discontinued Medications Acetaminophen (Acetaminophen 500 Mg Tab) 1,000 mg PO NOW STA Stop: 02/05/21 08:17 Last Admin: 02/05/21 08:38 Dose: 1,000 mg Documented by: [id number] Albuterol (Albut/Ipratrop 3mg/0.5mg Neb 3 Ml Vial) 12 ml NEB ONE ONE Stop: 02/05/21 09:47 Last Admin: 02/05/21 09:52 Dose: 12 ml Documented by: [id number] Albuterol (Albut/Ipratrop 3mg/0.5mg Neb 3 Ml Vial) Confirm Administered Dose 12 ml .ROUTE .STK-MED ONE Stop: 02/05/21 09:49 Last Admin: 02/05/21 10:06 Dose: Not Given Documented by: [id number] Cefepime HCl (Maxipime) 2,000 mg in 20 mls @ 5 mls/min IV NOW STA; Protocol Stop: 06/08/21 08:19 Last Admin: 02/05/21 09:34 Dose: 5 mls/min Documented by: [id number] Ioversol (Optiray 350 500ml) 120 ml IV ONCE ONE Stop: 02/05/21 11:44 Last Admin: 02/05/21 11:43 Dose: 120 ml Documented by: [id number] Imaging Data Radiologist's Impression: Chest X-Ray 02/05/21 08:15 XR chest 1V portable CLINICAL HISTORY: Dyspnea COMPARISON STUDY: Chest CT December 05, 2020. Chest radiograph January 29, 2021. FINDINGS: No pneumothorax or pleural effusion is noted. Cardiomegaly is unchanged. Underlying emphysema is noted. Basilar interstitial thickening is unchanged. Right upper lobe interstitial thickening with a few nodular opacities is also unchanged. IMPRESSION: No acute cardiopulmonary findings. No change in appearance of the chest. Emphysema. Chronic interstitial thickening. ACT 112: Negative or not required by law. Electronically signed by: Carmelo Samuel M.D. 02/05/2021 8:51 AM Chest CTA 02/05/21 11:07 CT ANGIOGRAM OF THE CHEST CLINICAL HISTORY: Increasing shortness of breath. Possible acute pulmonary embolism. COMPARISON STUDY: Noncontrast chest CT dated 12/05/2020 TECHNIQUE: Following the IV administration of 120 mL of Optiray, CT angiogram of the thorax was performed from the thoracic inlet to the lung bases utilizing the pulmonary embolus protocol. Images are reviewed in the axial, sagittal, and coronal planes. IV contrast was administered without complication. MIP imaging was performed. A dose lowering technique was utilized adhering to the principles of ALARA. CT DOSE: 441.90 mGy.cm FINDINGS: There are minimally enlarged mediastinal lymph nodes, similar to the prior study and statistically reactive. There was no evidence of thoracic aortic dilatation. There were no pulmonary artery filling defects to indicate acute pulmonary embolism. No pleural effusions are visualized. There is pulmonary emphysema. There are interstitial pulmonary fibrotic changes. There is a stable 15 mm right apical pulmonary nodule likely representing an area of scarring. There is a stable 8 mm left apical pulmonary nodule. There is a stable 7 mm solid right upper lobe pulmonary nodule as visualized image #232 sequence 4. There is a stable 5 mm subpleural right upper lobe pulmonary nodule as visualized image #233/298. IMPRESSION: 1. No evidence of acute pulmonary embolism 2. Severe pulmonary emphysema 3. Stable adenopathy 4. Stable subpleural reticulation, mild traction bronchiectasis and minimal subpleural honeycombing. 5. Bilateral pulmonary nodules stable from March 2020. 12 month follow-up re commended. ACT 112: Negative or not required by law. Electronically signed by: Jaun Chakraborty M.D. 02/05/2021 11:54 AM Discharge Plan Visit Data Chief Complaint: Shortness of Breath/Dyspnea Stated Complaint: SOB ED Provider: Gio Umana Discharge Problem: Acute on chronic respiratory failure with hypoxemia, SOB (shortness of breath), Fever Forms [facility] Alone Forms: [email or web address] Prescriptions Prescriptions: No Action albuterol sulfate 90 mcg/actuation HFA aerosol inhaler 2 - 4 puff Inhalation Q6H PRN (Reason: Shortness Of Breath Or Wheezing) Qty: 18 RF: 5 ipratropium-albuterol 0.5 mg-3 mg(2.5 mg base)/3 mL solution for nebulization 3 ml inhalation Q4H PRN (Reason: shortness of breath or wheezing) Qty: 180 RF: 5 Symbicort 160-4.5 mcg/actuation HFA aerosol inhaler 2 inh INH BID Qty: 10.2 RF: 5 Spiriva Respimat 2.5 mcg/actuation mist 2 inh inhalation QAM Qty: 4 RF: 5 aspirin [Aspirin Low Dose] 81 mg Tablet,Delayed Release (Dr/Ec) 81 mg PO QAM RF: 0 omega 9-khn-ils-fish oil [Fish Oil] 1,000 mg (120 mg-180 mg) Capsule 1 cap PO QAM RF: 0 prednisone 10 mg tablet 40 mg PO DAILY Qty: 42 RF: 0 amlodipine 10 mg tablet 10 mg PO QAM RF: 0 Referrals Referrals: Tk Almeida DO [Primary Care Provider] -
--- NOTE | 2021-02-05 08:52 | XRay Report ---
XR chest 1V portable CLINICAL HISTORY: Dyspnea COMPARISON STUDY: Chest CT December 05, 2020. Chest radiograph January 29, 2021. FINDINGS: No pneumothorax or pleural effusion is noted. Cardiomegaly is unchanged. Underlying emphyse ma is noted. Basilar interstitial thickening is unchanged. Right upper lobe interstitial thickening w ith a few nodular opacities is also unchanged. IMPRESSION: No acute cardiopulmonary findings. No change in appearance of the chest. Emphysema. Nutritional Services Director yeimy interstitial thickening. ACT 112: Negative or not required by law. Electronically signed by: Carmelo Samuel M.D. 02/05/2021 8:51 AM
[2021-02-05 09:26] LABS: Basophils # (auto) 0.01 K/uL (0-0.2); Basophils % (auto) 0.1 %; Eosinophils # (auto) 0.01 K/uL (0-0.5); Eosinophils % (auto) 0.1 %; Hemoglobin 15.5 g/dL (14.0-18.0); Immature Granulocytes # (auto) 0.53 K/uL (0.00-0.02); Immature Granulocytes % (auto) 4.7 %; Lymphocytes # (auto) 0.91 K/uL (1.2-3.4); Mean Corpuscular Hemoglobin 31.9 pg (25-34); Mean Corpuscular Hgb Conc 34.4 g/dL (32-36); Mean Corpuscular Volume 92.6 fL (80-100); Mean Platelet Volume 10.6 fL (7.4-10.4); Monocytes # (auto) 0.82 K/uL (0.11-0.59); Monocytes % (auto) 7.2 %; Neutrophils # (auto) 9.11 K/uL (1.4-6.5); Neutrophils % (auto) 79.9 %; Platelet Count 177 K/uL (130-400); RDW Coefficient of Variation 14.8 % (11.5-14.5); RDW Standard Deviation 49.9 fL (36.4-46.3); Red Blood Count 4.86 M/uL (4.7-6.1); White Blood Count 11.39 K/uL (4.8-10.8)
[2021-02-05 09:45] LABS: Albumin Level 3.2 gm/dl (3.4-5.0); BUN Creatinine Ratio 27.1 (10-20); Calcium 8.4 mg/dl (8.5-10.1); Creatinine Clr Calc Pharmacy 43.7 ml/min; Est GFR (African American) 59.3 ml/min; Est GFR (Non-African American) 51.2 ml/min; Magnesium 2.1 mg/dl (1.8-2.4); Potassium 3.8 mmol/L (3.5-5.1)
[2021-02-05] MEDS ORDERED: ALBUT/IPRATROP 3MG/0.5MG NEB 3 ML VIAL NEB ONE (09:46)
[2021-02-05] MEDS ORDERED: ALBUT/IPRATROP 3MG/0.5MG NEB 3 ML VIAL ONE (09:48)
[2021-02-05 09:50] LABS: Albumin Globulin Ratio 0.9 (0.9-2); Bilirubin,Total 1.8 mg/dl (0.2-1); Globulin 3.5 gm/dl (2.5-4.0); Total Protein 6.7 gm/dl (6.4-8.2); Troponin I 0.03 ng/ml (0-0.045)
[2021-02-05] MEDS ORDERED: OPTIRAY 350 500ml IV ONE (11:43)
--- NOTE | 2021-02-05 11:55 | CT Scan Report ---
CT ANGIOGRAM OF THE CHEST CLINICAL HISTORY: Increasing shortness of breath. Possible acute pulmonary embolism. COMPARISON STUDY: Noncontrast chest CT dated 12/05/2020 TECHNIQUE: Following the IV administration of 120 mL of Optiray, CT angiogram of the thorax was perfo rmed from the thoracic inlet to the lung bases utilizing the pulmonary embolus protocol. Images are r eviewed in the axial, sagittal, and coronal planes. IV contrast was administered without complication . MIP imaging was performed. A dose lowering technique was utilized adhering to the principles of AL ANTHONY. CT DOSE: 441.90 mGy.cm FINDINGS: There are minimally enlarged mediastinal lymph nodes, similar to the prior study and statistically re active. There was no evidence of thoracic aortic dilatation. There were no pulmonary artery filling defects to indicate acute pulmonary embolism. No pleural effusions are visualized. There is pulmonary emphysema. There are interstitial pulmonary fibrotic changes. There is a stable 15 mm right apical pulmonary nodule likely representing an area of scarring. There is a stable 8 mm lef t apical pulmonary nodule. There is a stable 7 mm solid right upper lobe pulmonary nodule as visualiz ed image #232 sequence 4. There is a stable 5 mm subpleural right upper lobe pulmonary nodule as visu alized image #233/298. IMPRESSION: 1. No evidence of acute pulmonary embolism 2. Severe pulmonary emphysema 3. Stable adenopathy 4. Stable subpleural reticulation, mild traction bronchiectasis and minimal subpleural honeycombing. 5. Bilateral pulmonary nodules stable from March 2020. 12 month follow-up recommended. ACT 112: Negative or not required by law. Electronically signed by: Jaun Chakraborty M.D. 02/05/2021 11:54 AM
[2021-02-05 12:23] LABS: Appearance Urine Clear (Clear); Bacteria Urine Automated Negative (Negative); Bilirubin Urine Negative (Negative); Blood Urine Negative (Negative); Cast Urine Automated 0 /lpf (0-5); Color Urine Yellow; Epithelial Cell Urine Auto 0-5 /lpf (0-5); Glucose Urine UA Negative (Negative); Ketones Urine Negative (Negative); Leukocyte Esterase Urine Negative (Negative); Nitrite Urine Negative (Negative); Protein Urine 1+ (Negative); RBC Urine Automated 0-4 /hpf (0-4); Specific Gravity Urine 1.018 (1.000-1.030); Urobilinogen Urine Negative (Negative)
--- NOTE | 2021-02-05 13:59 | History & Physical Report ---
Date of Service February 05, 2021 Assessment & Plan (1) SOB (shortness of breath): (2) COPD (chronic obstructive pulmonary disease) with emphysema: (3) IPF (idiopathic pulmonary fibrosis): Patient shortness of breath is likely multifactorial due to COPD exacerbation as well as IPF. Suspect patient may be nearing end-stage Admit to monitored bed Continue O2 support as noted Patient was oral oral prednisone, will restart IV Solu-Medrol Restarted IV Zithromax DuoNeb/albuterol We will consult to pulmonology for further recommendations. If patient's condition continues to worsen, may need to consider palliative care consultation as well (4) Hypertension: Continue amlodipine 10 mg daily (5) Leukocytosis: Patient has mildly elevated WBC, suspect this is from steroids rather than acute infection Continue to monitor for any symptomatology consistent with infection. Zithromax as noted above History of Present Illness Chief Complaint: Shortness of breath Primary Care Provider: Tk Almeida, DO This is an 85-year-old male with past medical history of advanced COPD, IPF that presents today complaining shortness of breath. Patient is very limited historian. I did review the patient's records. Patient is currently under the care of Dr. Briceño, last saw him on 12/18. It sounds that the patient has advanced lung disease which may be progressing. He is typically on 2 L nasal cannula. Back in October of this year he was treated as an outpatient for COPD exacerbation. More recently, patient was admitted here with acute respiratory failure, again thought to be a COPD exacerbation. As what happened after the patient was discharged is difficult for him to express to me. There may be some mild dementia and I also suspect the patient is hard of hearing. It sounds the patient had worsening shortness of breath at home despite compliance with medical treatment that included a long prednisone taper and Zithromax. He does have a home on pulse oximeter and told me that his pulse tends to increase with any activity. He is having severe dyspnea on exertion with even minimal movement was conversationally dyspneic when he was speaking to me, even with a simple mask in place. O2 sat was 96% of the vitals were stable. Patient denied any fevers otherwise she was at 38.6 on arrival. Also of note, patient was only 86% on 6 L at presentation. Allergies Allergy/AdvReac Type Severity Reaction Status Date / Time blueberry Allergy Intermediate HIVES Verified 02/05/21 09:27 Home Medications Medication Instructions Recorded Confirmed Type aspirin [Aspirin Low Dose] 81 mg PO QAM 05/31/18 02/05/21 History omega 1-iyi-cqh-fish oil [Fish Oil] 1 cap PO QAM 05/31/18 02/05/21 History albuterol sulfate 90 mcg/actuation 2 - 4 puff INHALATION Q6H PRN #18 g 04/16/20 02/05/21 Rx aerosol inhaler ipratropium 0.5 mg-albuterol 3 mg 3 ml INHALATION Q4H PRN #180 vial 09/18/20 02/05/21 Rx (2.5 mg base)/3 mL nebulization soln budesonide-formoterol HFA 160 2 inh INH BID #10.2 g 10/15/20 02/05/21 Rx mcg-4.5 mcg/actuation aerosol inhaler tiotropium bromide 2.5 2 inh INHALATION QAM #4 g 11/07/20 02/05/21 Rx mcg/actuation mist for inhalation prednisone 40 mg PO DAILY #42 tab 02/01/21 02/05/21 Rx amlodipine 10 mg PO QAM 02/05/21 02/05/21 History Past Med/Surg History Medical History Abnormal albumin Acute on chronic respiratory failure with hypoxemia Bullous emphysema Cancer Carotid stenosis, left Cerebral infarction CKD (chronic kidney disease) COPD (chronic obstructive pulmonary disease) Dyslipidemia Hypertension Idiopathic interstitial pneumonia Pulmonary emphysema Surgical History History of appendectomy History of cataract surgery History of hernia repair History of laparoscopic cholecystectomy History of tonsillectomy and adenoidectomy Family History Unknown Diabetes Mother Stroke syndrome Father Coronary arteriosclerosis Denies family history of Ovarian cancer Prostate cancer Myocardial infarction Breast cancer Colorectal cancer Social History Smoking Status: Former smoker Tobacco Type: Cigarettes Age Started Using Tobacco: 19; Age Quit Using Tobacco: 54; packs per day: 2; Second Hand Exposure: Yes; Hx Alcohol Use: No Hx Substance Use: No Preferred Language: Chinese Communication Ability: Effective Visual Impairment: No Limitations Hearing Ability: Hard of Hearing Beliefs That Will Affect Care: None marital status: Current Living Situation: Spouse current occupational status: retired Feels Safe at Home: Yes Childhood Exposure to Second-Hand Smoke: Yes Dental Care, Regularly: Yes Physical Activity Frequency: Does not Exercise Seatbelt Use: always Sunscreen Use: No Assistive Devices: Oxygen - Continuous Review of Systems Constitutional: no fever, no chills, no weakness, no weight loss and no weight gain Eyes: as per Subjective / HPI Respiratory: + dyspnea and + dyspnea on exertion; no cough, no chest congestion and no sputum production Cardiovascular: no chest pain, no orthopnea, no palpitations, no lightheadedness and no edema Gastrointestinal: no abdominal pain, no nausea, no vomiting, no constipation and no diarrhea/loose stools Musculoskeletal: no back pain, no neck pain, no joint pain, no stiffness and no myalgia Integumentary: no rash Neurologic: no gait abnormality, no unsteadiness, no falls and no generalized weakness Physical Exam Constitutional: cooperative; no acute distress Mildly dyspneic Neck: trachea midline, no thyromegaly Respiratory: normal respiratory effort Auscultation: + diminished lung sounds and + crackles; no rales, no rhonchi and no wheezes Cardiovascular: Rate/Rhythm: regular rate and regular rhythm Heart Sounds: normal S1 and normal S2; no murmur Gastrointestinal (Abdomen): Inspection/Auscultation: abdomen normal to inspection Percussion/Palpation: abdomen soft; abdomen nontender, no guarding, abdomen not rigid and no hepatosplenomegaly Skin: no rashes, warm and dry Results & Data Results & Data ([facility]) Vital Signs (Past 12 Hours) Vital Signs Temp Pulse Pulse Resp BP Pulse Ox 02/05/21 13:15 65 21 107/62 94 02/05/21 13:00 68 22 106/69 94 02/05/21 12:45 73 21 110/70 95 02/05/21 12:30 71 20 110/70 93 02/05/21 12:15 79 21 125/69 96 02/05/21 12:01 78 22 109/67 95 02/05/21 11:46 20 120/63 95 02/05/21 10:30 122/58 L 95 02/05/21 10:15 77 23 113/60 93 02/05/21 10:00 71 26 H 107/58 L 93 02/05/21 09:53 71 28 H 94 02/05/21 09:31 69 27 H 02/05/21 09:30 71 30 H 104/56 L 02/05/21 09:15 76 30 H 107/53 L 02/05/21 09:00 73 28 H 110/60 02/05/21 08:45 75 34 H 112/61 02/05/21 08:30 78 31 H 119/58 L 90 02/05/21 08:21 81 27 H 93 02/05/21 08:16 81 20 127/70 92 02/05/21 08:15 38.6 C H 82 29 H 127/[address] ANGIOGRAM OF THE CHEST CLINICAL HISTORY: Increasing shortness of breath. Possible acute pulmonary embolism. COMPARISON STUDY: Noncontrast chest CT dated 12/05/2020 TECHNIQUE: Following the IV administration of 120 mL of Optiray, CT angiogram of the thorax was performed from the thoracic inlet to the lung bases utilizing the pulmonary embolus protocol. Images are reviewed in the axial, sagittal, and rochelle nal planes. IV contrast was administered without complication. MIP imaging was performed. A dose lowering technique was utilized adhering to the principles of ALARA. CT DOSE: 441.90 mGy.cm FINDINGS: There are minimally enlarged mediastinal lymph nodes, similar to the prior study and statistically reactive. There was no evidence of thoracic aortic dilatation. There were no pulmonary artery filling defects to indicate acute pulmonary embolism. No pleural effusions are visualized. There is pulmonary emphysema. There are interstitial pulmonary fibrotic changes. There is a stable 15 mm right apical pulmonary nodule likely representing an area of scarring. There is a stable 8 mm left apical pulmonary nodule. There is a stable 7 mm solid right upper lobe pulmonary nodule as visualized image #232 sequence 4. There is a stable 5 mm subpleural right upper lobe pulmonary nodule as visualized image #[id number]. IMPRESSION: 1. No evidence of acute pulmonary embolism 2. Severe pulmonary emphysema 3. Stable adenopathy 4. Stable subpleural reticulation, mild traction bronchiectasis and minimal subpleural honeycombing. 5. Bilateral pulmonary nodules stable from March 2020. 12 month follow-up recommended. PG Care Time/CCT Total # of Minutes Spent Total Time Spent with Patient: Total time spent is greater than 50% in coordination of care (as documented) at patient's floor/unit and/or counseling patient: Coding Level of Care Code 50358 Initial Inpt Care Lvl 3 Diagnoses SOB (shortness of breath) R06.02 COPD (chronic obstructive pulmonary disease) with emphysema J43.9 IPF (idiopathic pulmonary fibrosis) J84.112 Hypertension I10 Leukocytosis D72.829
[2021-02-05] MEDS ORDERED: ACETAMINOPHEN 325 MG TAB PO PRN (16:14)
[2021-02-05] MEDS ORDERED: ONDANSETRON INJ 2 MG/ML 2 ML VIAL IV PRN (16:14)
[2021-02-05] MEDS: ALBUT/IPRATROP 3MG/0.5MG NEB 3 ML VIAL NEB SCH ×3 (16:46→22:47)
[2021-02-05] MEDS: ENOXAPARIN INJ 40 MG/0.4 ML SYR SQ SCH (17:59)
[2021-02-05] MEDS: AZITHROMYCIN 500 MG in DEXTROSE 5% 250 ML IV SCH (17:59)
[2021-02-05] MEDS: methylPREDNISolone 40 MG in SYRINGE 0 ML IV SCH ×2 (18:00→23:09)
[2021-02-06] MEDS: ALBUT/IPRATROP 3MG/0.5MG NEB 3 ML VIAL NEB SCH ×6 (03:22→22:04)
--- NOTE | 2021-02-06 06:01 | Electrocardiogram Report ---
Test Reason : Blood Pressure : / mmHG Vent. Rate : 085 BPM Atrial Rate : 085 BPM P-R Int : 210 ms QRS Dur : 090 ms QT Int : 374 ms P-R-T Axes : 076 -18 065 degrees QTc Int : 445 ms Sinus rhythm with 1st degree A-V block with Premature atrial complexes Otherwise normal ECG When compared with ECG of 29-JAN-2021 12:18, Premature atrial complexes are now Present Confirmed by Jimmie Rogel ([id number]) on 02/06/2021 6:01:12 AM Referred By: Confirmed By:Jimmie Rogel
[2021-02-06] MEDS: methylPREDNISolone 40 MG in SYRINGE 0 ML IV SCH ×3 (06:09→16:57)
[2021-02-06] MEDS: ENOXAPARIN INJ 40 MG/0.4 ML SYR SQ SCH ×2 (06:09→16:57)
[2021-02-06 06:49] LABS: Hematocrit (blood only) 44.4 % (42-52); Hemoglobin 15.1 g/dL (14.0-18.0); Mean Corpuscular Hemoglobin 31.3 pg (25-34); Mean Corpuscular Volume 92.1 fL (80-100); Mean Platelet Volume 10.9 fL (7.4-10.4); Platelet Count 190 K/uL (130-400); RDW Coefficient of Variation 14.6 % (11.5-14.5); RDW Standard Deviation 49.8 fL (36.4-46.3); Red Blood Count 4.82 M/uL (4.7-6.1); White Blood Count 12.23 K/uL (4.8-10.8)
[2021-02-06 07:14] LABS: ALC (manual) 0.95 K/uL (1.2-3.4); ANC (manual) 10.74 K/uL (1.4-6.5); Lymphocytes # (manual) 0.95 K/uL (1.2-3.4); Lymphocytes % (manual) 7.8 %; Metamyelocytes # (manual) 0.11 K/uL (0-0); Metamyelocytes % (manual) 0.9 %; Monocytes # (manual) 0.43 K/uL (0.11-0.59); Monocytes % (manual) 3.5 %; Neutrophils # (manual) 10.74 K/uL (1.4-6.5); Neutrophils % (manual) 87.8 %
[2021-02-06] MEDS: amLODIPine BESYLATE 5 MG TAB PO SCH (07:47)
[2021-02-06] MEDS: OMEGA-3 (PURIFIED FISH OIL) 1 GM CAP PO SCH (07:47)
[2021-02-06] MEDS: ASPIRIN 81 MG ECTAB PO SCH (07:47)
[2021-02-06 07:55] LABS: BUN Creatinine Ratio 25.4 (10-20); Calcium 8.4 mg/dl (8.5-10.1); Creatinine Clr Calc Pharmacy 44.6 ml/min; Est GFR (African American) 62.9 ml/min; Est GFR (Non-African American) 54.3 ml/min; Magnesium 2.9 mg/dl (1.8-2.4); Potassium 3.9 mmol/L (3.5-5.1)
--- NOTE | 2021-02-06 10:43 | Pulmonary Consultation ---
Date of Consultation February 06, 2021 Assessment & Plan (1) SOB (shortness of breath): (2) Fever: (3) Pulmonary emphysema: (4) Idiopathic interstitial pneumonia: (5) Acute on chronic respiratory failure with hypoxemia: Impression: 85-year-old male with advanced COPD and interstitial lung dise ase wiht acute on chronic hypoxemic respiratory failure. Patient was only able to remain out of the hospital for less than 72 hours before being readmitted due to shortness of breath.He had been treated with antibiotics and steroids previously. CT scan does not demonstrate any significant worsening of his interstitial lung disease and he does not appear overtly bronchospastic on my exam today. Recommendations: 1.Hypoxemic respiratory failure: The patient is oxygenating well on 4 to 5 L which is his home dose. Unclear what the precipitating event was to cause his decompensation. Microaspiration would be a possibility. 2.COPD: Advanced. The patient is not overtly bronchospastic. He is already on steroids and would continue with the 10 mg a day of prednisone with slow taper over the next 4 to 6 weeks. Continue his current inhalers. 3. Interstitial lung disease: No indication for biopsy C or increase steroid dose at this point time. The patient does state that he is DO NOT INTUBATE DO NOT RESUSCITATE so his CODE STATUS will be updated accordingly. 4.Patient certainly would qualify for symptom management and more of a palliative approach. We will consult palliative medicine to evaluate the patient. He already has advanced directives in place. Unfortunately I think we may be reaching the limits of what we can do medically to optimize the patient. Would recommend ambulating the patient is much as possible and consider discharge to the hospital once he feels like he is well enough to go home. Unfortunately I do not have much else to add to the care of the patient at this point time. Feel free to contact me if I can be of additional assistance. History of Present Illness Attending Physician: Carson Calderon, DO History of Present Illness Asked by hospitalist to evaluate this patient with interstitial lung disease, obstructive lung disease, and chronic hypoxemic respiratory failure admitted with shortness of breath. History is obtained from review electronic medical record as well as discussion with the patient. This 85-year-old male has been followed in the pulmonary clinic for COPD and pulmonary fibrosis. He was just dismissed from the hospital and lasted for about 3 days at home before being readmitted for oxygen desaturations and sob. The patient is not actually sure what happened. He states that his oxygen saturations went down to 88 despite being on his normal 5 L nasal cannula. He does not report any significant cough or sputum production. No fevers chills or night sweats. He relates that he was compliant with all of his medications and was using his oxygen as prescribed. During his last hospitalization he was placed on a prednisone taper.He states he was compliant with the medication. He denies fevers chills night sweats. He is not had chest pain palpitations or significant lower extremity edema. The patient states that he does have an advanced directive in place. He does not want to be on a mechanical ventilator should he suffer respiratory arrest or fail from a respiratory standpoint. He is never met with palliative care previously. Allergies Allergy/AdvReac Type Severity Reaction Status Date / Time blueberry Allergy Intermediate HIVES Verified 02/05/21 09:27 Home Medications Medication Instructions Recorded Confirmed Type aspirin [Aspirin Low Dose] 81 mg PO QAM 05/31/18 02/05/21 History omega 7-fut-yns-fish oil [Fish Oil] 1 cap PO QAM 05/31/18 02/05/21 History albuterol sulfate 90 mcg/actuation 2 - 4 puff INHALATION Q6H PRN #18 g 04/16/20 02/05/21 Rx aerosol inhaler ipratropium 0.5 mg-albuterol 3 mg 3 ml INHALATION Q4H PRN #180 vial 09/18/20 02/05/21 Rx (2.5 mg base)/3 mL nebulization soln budesonide-formoterol HFA 160 2 inh INH BID #10.2 g 10/15/20 02/05/21 Rx mcg-4.5 mcg/actuation aerosol inhaler tiotropium bromide 2.5 2 inh INHALATION QAM #4 g 11/07/20 02/05/21 Rx mcg/actuation mist for inhalation prednisone 40 mg PO DAILY #42 tab 02/01/21 02/05/21 Rx amlodipine 10 mg PO QAM 02/05/21 02/05/21 History Patient History Medical History Abnormal albumin Acute on chronic respiratory failure with hypoxemia Bullous emphysema Cancer Carotid stenosis, left Cerebral infarction CKD (chronic kidney disease) COPD (chronic obstructive pulmonary disease) Dyslipidemia Hypertension Idiopathic interstitial pneumonia Pulmonary emphysema Surgical History History of appendectomy History of cataract surgery History of hernia repair History of laparoscopic cholecystectomy History of tonsillectomy and adenoidectomy Family History Unknown Diabetes Mother Stroke syndrome Father Coronary arteriosclerosis Denies family history of Ovarian cancer Prostate cancer Myocardial infarction Breast cancer Colorectal cancer Social History Smoking Status: Former smoker Tobacco Type: Cigarettes Age Started Using Tobacco: 19; Age Quit Using Tobacco: 54; packs per day: 2; Second Hand Exposure: Yes; Hx Alcohol Use: No Hx Substance Use: No Preferred Language: Iranian Communication Ability: Effective Visual Impairment: No Limitations Hearing Ability: Hard of Hearing Wordpress Developer Required: No Beliefs That Will Affect Care: None marital status: Current Living Situation: Spouse current occupational status: retired Other Information That Helps Us Care for You: No Feels Safe at Home: Yes Safety Concerns: Feels Safe At This Time Childhood Exposure to Second-Hand Smoke: Yes Dental Care, Regularly: Yes Physical Activity Frequency: Does not Exercise Seatbelt Use: always Sunscreen Use: No Assistive Devices: Oxygen - Continuous Review of Systems Review of Systems: Please refer to admission H&P. No additions or deletions. Physical Exam Constitutional: cooperative; no acute distress Mildly dyspneic Neck: trachea midline, no thyromegaly Respiratory: normal respiratory effort Auscultation: + diminished lung sounds and + crackles; no rales, no rhonchi and no wheezes Cardiovascular: Rate/Rhythm: regular rate and regular rhythm Heart Sounds: normal S1 and normal S2; no murmur Gastrointestinal (Abdomen): Inspection/Auscultation: abdomen normal to i nspection Percussion/Palpation: abdomen soft; abdomen nontender, no guarding, abdomen not rigid and no hepatosplenomegaly Skin: no rashes, warm and dry Results & Data Results & Data ([facility]) Vital Signs (Past 12 Hours) Vital Signs Temp Pulse Pulse Resp BP Pulse Ox 02/06/21 08:10 64 02/06/21 07:25 36.3 C L 79 21 128/72 93 02/06/21 06:58 77 18 92 02/06/21 04:12 36.4 C L 65 18 119/61 94 02/06/21 03:23 66 12 90 02/05/21 23:24 36.3 C L 57 L 18 115/65 5 L 02/05/21 23:00 57 L 02/05/21 22:47 18 91 Laboratory Results 02/06/21 05:56 02/06/21 05:[address] chest independently reviewed CT ANGIOGRAM OF THE CHEST CLINICAL HISTORY: Increasing shortness of breath. Possible acute pulmonary embolism. COMPARISON STUDY: Noncontrast chest CT dated 12/05/2020 TECHNIQUE: Following the IV administration of 120 mL of Optiray, CT angiogram of the thorax was performed from the thoracic inlet to the lung bases utilizing the pulmonary embolus protocol. Images are reviewed in the axial, sagittal, and coronal planes. IV contrast was administered without complication. MIP imaging was performed. A dose lowering technique was utilized adhering to the principles of ALARA. CT DOSE: 441.90 mGy.cm FINDINGS: There are minimally enlarged mediastinal lymph nodes, similar to the prior study and statistically reactive. There was no evidence of thoracic aortic dilatation. There were no pulmonary artery filling defects to indicate acute pulmonary embolism. No pleural effusions are visualized. There is pulmonary emphysema. There are interstitial pulmonary fibrotic changes. There is a stable 15 mm right apical pulmonary nodule likely representing an area of scarring. There is a stable 8 mm left apical pulmonary nodule. There is a stable 7 mm solid right upper lobe pulmonary nodule as visualized image #232 sequence 4. There is a stable 5 mm subpleural right upper lobe pulmonary nodule as visualized image #233/[id number]. IMPRESSION: 1. No evidence of acute pulmonary embolism 2. Severe pulmonary emphysema 3. Stable adenopathy 4. Stable subpleural reticulation, mild traction bronchiectasis and minimal subpleural honeycombing. 5. Bilateral pulmonary nodules stable from March 2020. 12 month follow-up recommended. PG Care Time/CCT Total # of Minutes Spent Total Time Spent with Patient: Total time spent is greater than 50% in coordination of care (as documented) at patient's floor/unit and/or counseling patient: Coding Level of Care Code 49408 Initial Inpt Care Lvl 3 Diagnoses SOB (shortness of breath) R06.02 Fever R50.9 Pulmonary emphysema J43.9 Idiopathic interstitial pneumonia J84.111 Acute on chronic respiratory failure with hypoxemia J96.21
--- NOTE | 2021-02-06 13:00 | Hospitalist Progress Note ---
Date of Service February 06, 2021 Assessment & Plan (1) SOB (shortness of breath): chronic, due to IPF maximized on medical therapy will add Roxanol to treat dyspnea PRN can follow up with Palliative care (2) COPD (chronic obstructive pulmonary disease) with emphysema: continue maintenance inhalers no distress (3) IPF (idiopathic pulmonary fibrosis): Patient shortness of breath is likely multifactorial due to COPD exacerbation as well as IPF. Suspect patient may be nearing end-stage Continue O2 support as noted We will consult to pulmonology for further recommendations - no further changes, recommend palliative care (4) Hypertension: Continue amlodipine 10 mg daily (5) Leukocytosis: Patient has mildly elevated WBC, suspect this is from steroids rather than acute infection Continue to monitor for any symptomatology consistent with infection. Zithromax as noted above Admission and Anticipated Discharge Date Admission Date: February 05, 2021 Subjective patient feeling a lot better, breathing is close to baseline discussed with Dr. Meléndez, he recommended getting palliative care to see him reviewed chart and labs Review of Systems Review of Systems: All systems reviewed & are unremarkable except as noted in Subjective Respiratory: + dyspnea on exertion Physical Exam Constitutional: WD/WN, vitals as above Neck: trachea midline, no thyromegaly Respiratory: normal respiratory effort; no respiratory distress Auscultation: + diminished lung sounds and + crackles Cardiovascular: RRR, no murmur, no edema Gastrointestinal (Abdomen): normal bowel sounds, soft, nontender, no hepatosplenomegaly Musculoskeletal: no cyanosis or clubbing, extremities motor strength 5/5 Skin: no rashes, warm and dry Neurologic: patellar DTR's 2+ bilat, sensation intact and PERRL, EOMI, accommodation nl, no face palsy, no dysarthria Psychiatric: A+Ox3, euthymic affect Lymphatic: no cervical or axillary lymphadenopathy Results & Data Results & Data ([facility]) Vital Signs (Past 12 Hours) Vital Signs Temp Pulse Pulse Resp BP Pulse Ox 02/06/21 11:49 36.8 C 86 22 129/57 L 92 02/06/21 10:50 82 16 96 02/06/21 08:10 64 02/06/21 07:25 36.3 C L 79 21 128/72 93 02/06/21 06:58 77 18 92 02/06/21 04:12 36.4 C L 65 18 119/61 94 02/06/21 03:23 66 12 90 Laboratory Results Laboratory Results - last 24 hr 02/06/21 02/06/21 05:56 05:56 WBC 12.23 H RBC 4.82 Hgb 15.1 Hct 44.4 MCV 92.1 MCH 31.3 MCHC 34.0 RDW Std Deviation 49.8 H RDW Coeff of Matt 14.6 H Plt Count 190 MPV 10.9 H Neutrophils % (Manual) 87.8 Lymphocytes % (Manual) 7.8 Monocytes % (Manual) 3.5 Metamyelocytes % (Man) 0.9 Neutrophils # (Manual) 10.74 H Total Absolute Neuts 10.74 H Lymphocytes # (Manual) 0.95 L Total Abs Lymphocytes 0.95 L Monocytes # (Manual) 0.43 Metamyelocytes # (Man) 0.11 H Sodium 138 Potassium 3.9 Chloride 106 Carbon Dioxide 25 Anion Gap 7.0 BUN 31 H Creatinine 1.21 Est Cr Clr Drug Dosing 44.6 Est GFR ( Amer) 62.9 Est GFR (Non-Af Amer) 54.3 BUN/Creatinine Ratio 25.4 H Glucose 149 H Calcium 8.4 L Magnesium 2.9 H Medications Administered Current Inpatient Medications Acetaminophen (Acetaminophen 325 Mg Tab) 650 mg PO Q4H PRN PRN Reason: Pain or Fever Stop: 03/07/21 16:13 Albuterol (Albut/Ipratrop 3mg/0.5mg Neb 3 Ml Vial) 3 ml NEB Q4R [facility] Stop: 03/07/21 16:13 Last Admin: 02/06/21 22:04 Dose: 3 ml Documented by: Amlodipine Besylate (Amlodipine Besylate 5 Mg Tab) 10 mg PO QAM [facility] Stop: 03/08/21 08:59 Last Admin: 02/06/21 07:47 Dose: 10 mg Documented by: Aspirin (Aspirin 81 Mg Ectab) 81 mg PO QAM [facility] Stop: 03/08/21 08:59 Last Admin: 02/06/21 07:47 Dose: 81 mg Documented by: Enoxaparin Sodium (Enoxaparin Inj 40 Mg/0.4 Ml Syr) 40 mg SQ Q12H [facility] Stop: 03/07/21 17:59 Last Admin: 02/06/21 16:57 Dose: 40 mg Documented by: Fish Oil ([place]-3 (Purified Fish Oil) 1 Gm Cap) 1 gm PO QAM [facility] Stop: 03/08/21 08:59 Last Admin: 02/06/21 07:47 Dose: 1 gm Documented by: Azithromycin 500 mg/ Dextrose 255 mls @ 125 mls/hr IV DAILY@1700 [facility] Stop: 02/12/21 16:59 Last Infusion: 02/06/21 19:41 Dose: Infused Documented by: Methylprednisolone 40 mg/ (Syringe) 0.64 mls @ 1.5 mls/min IV Q6H [facility] Stop: 03/07/21 17:59 Last Admin: 02/06/21 16:57 Dose: 1.5 mls/min Documented by: Ondansetron HCl (Ondansetron Inj 2 Mg/Ml 2 Ml Vial) 4 mg IV Q6H PRN PRN Reason: Nausea Stop: 03/07/21 16:13 PG Care Time/CCT Total # of Minutes Spent Total Time Spent with Patient: Total time spent is greater than 50% in coordination of care (as documented) at patient's floor/unit and/or counseling patient: Coding Level of Care Code 82660 Subseq Hosp Care Lvl 2 Diagnoses SOB (shortness of breath) R06.02 COPD (chronic obstructive pulmonary disease) with emphysema J43.9 IPF (idiopathic pulmonary fibrosis) J84.112 Hypertension I10 Leukocytosis D72.829
[2021-02-06] MEDS: AZITHROMYCIN 500 MG in DEXTROSE 5% 250 ML IV SCH (16:56)
[2021-02-07] MEDS: methylPREDNISolone 40 MG in SYRINGE 0 ML IV SCH ×3 (00:45→12:27)
[2021-02-07] MEDS: ALBUT/IPRATROP 3MG/0.5MG NEB 3 ML VIAL NEB SCH ×2 (03:33→07:07)
[2021-02-07] MEDS: ENOXAPARIN INJ 40 MG/0.4 ML SYR SQ SCH (05:57)
[2021-02-07] MEDS: ASPIRIN 81 MG ECTAB PO SCH (08:13)
[2021-02-07] MEDS: OMEGA-3 (PURIFIED FISH OIL) 1 GM CAP PO SCH (08:14)
[2021-02-07] MEDS: amLODIPine BESYLATE 5 MG TAB PO SCH (08:14)
[2021-02-07] MEDS ORDERED: ALBUT/IPRATROP 3MG/0.5MG NEB 3 ML VIAL NEB PRN (10:12)
[2021-02-07] MEDS ORDERED: FLUTICASONE/VILANTEROL 100/25MCG 14 PUFFS/INHALER INH SCH (11:00)
[2021-02-07] MEDS ORDERED: UMECLIDINIUM BROMIDE 62.5MCG/BLISTER 7 PUFFS/INHALER INH SCH (11:00)
--- NOTE | 2021-02-18 07:24 | Discharge Summary ---
Date of Service February 07, 2021 Admission HPI Per Admitting Provider This is an 85-year-old male with past medical history of advanced COPD, IPF that presents today complaining shortness of breath. Patient is very limited historian. I did review the patient's records. Patient is currently under the care of Dr. Briceño, last saw him on 12/18. It sounds that the patient has advanced lung disease which may be progressing. He is typically on 2 L nasal cannula. Back in October of this year he was treated as an outpatient for COPD exacerbation. More recently, patient was admitted here with acute respiratory failure, again thought to be a COPD exacerbation. As what happened after the patient was discharged is difficult for him to express to me. There may be some mild dementia and I also suspect the patient is hard of hearing. It sounds the patient had worsening shortness of breath at home despite compliance with medical treatment that included a long prednisone taper and Zithromax. He does have a home on pulse oximeter and told me that his pulse tends to increase with any activity. He is having severe dyspnea on exertion with even minimal movement was conversationally dyspneic when he was speaking to me, even with a simple mask in place. O2 sat was 96% of the vitals were stable. Patient denied any fevers otherwise she was at 38.6 on arrival. Also of note, patient was only 86% on 6 L at presentation. Principal Diagnosis Dyspnea, idiopathic pulmonary fibrosis Discharge Exam Constitutional WD/WN, vitals as above Neck trachea midline, no thyromegaly Respiratory normal respiratory effort; no respiratory distress Auscultation: + diminished lung sounds and + crackles Cardiovascular RRR, no murmur, no edema Gastrointestinal (Abdomen) normal bowel sounds, soft, nontender, no hepatosplenomegaly Musculoskeletal no cyanosis or clubbing, extremities motor strength 5/5 Skin no rashes, warm and dry Neurologic patellar DTR's 2+ bilat, sensation intact and PERRL, EOMI, accommodation nl, no face palsy, no dysarthria Psychiatric A+Ox3, euthymic affect Lymphatic no cervical or axillary lymphadenopathy Discharge Data Allergies Allergy/AdvReac Type Severity Reaction Status Date / Time blueberry Allergy Intermediate HIVES Verified 02/05/21 09:27 Consultations 02/05/21 12:59 ED Decision to Admit Stat 02/05/21 16:14 Consult Pulmonology Routine 02/06/21 10:37 Consult Palliative Care Routine Ordered Studies 02/05/21 11:07 CT angio chest PE protocol Stat Hospital Course (1) SOB (shortness of breath): chronic, due to IPF maximized on medical therapy will add Roxanol to treat dyspnea PRN can follow up with Palliative care (2) COPD (chronic obstructive pulmonary disease) with emphysema: continue maintenance inhalers no distress (3) IPF (idiopathic pulmonary fibrosis): Patient shortness of breath is likely multifactorial due to COPD exacerbation as well as IPF. Suspect patient may be nearing end-stage Continue O2 support as noted We will consult to pulmonology for further recommendations - no further changes, recommend palliative care, will arrange outpatient (4) Hypertension: Continue amlodipine 10 mg daily (5) Leukocytosis: Patient has mildly elevated WBC, suspect this is from steroids rather than acute infection Continue to monitor for any symptomatology consistent with infection. Zithromax as noted above Total Time Total Time Spent Total Time Spent (In Minutes): 25 Total Time Includes: Examination of the Patient, Discharge Planning, Medication Reconciliation and Communication With Other Providers Discharge Plan Discharge Items Patient Disposition: Home - Self-Care Reason For Visit: SOB Discharge Diagnosis: Dyspnea Pulmonary fibrosis COPD Condition on Discharge: Good Goals: control symptoms follow up with palliative care Activity: Resume your previous activity Non-emergency contact: Primary Care Provider Call non-emergency contact if: you have any medication questions and your symptoms worsen Follow-up/Referrals: Tk Almeida DO [Primary Care Provider] - 02/13/21 11:20 am (Please follow up with Dr. Almeida on Thursday02/13/21 at 11:20 am. Please arrive to the office at 11:05 am for your appointment. If you are unable to keep this appointment, please call the office to reschedule at [phone].) Annel Nguyễn MD [Physician] - 02/14/21 2:00 pm (Please follow up with Dr. Nguyễn on 02/14/21 at 2:00 pm. Please arrive to the office at 1:45 pm for your appointment. If you are unable to keep this appointment, please call the office to reschedule at [phone].) Diet: Regular Addtl Attending Provider Instructions: Medications: - ZITHROMAX: 250mg daily x 3 more days - MORPHINE: take 0.25mL every 6 hours as needed for shortness of breath sensation continue all of your prior medications follow up with your PCP as well as palliative care to discuss symptom management Pending Studies at Discharge: No Stand-Alone Forms: My [facility], Smoking Cessation Medications and DC Order Prescriptions: New morphine concentrate 100 mg/5 mL (20 mg/mL) solution 5 mg PO Q6H PRN (Reason: dyspnea) Qty: 30 RF: 0 Continued albuterol sulfate 90 mcg/actuation HFA aerosol inhaler 2 - 4 puff Inhalation Q6H PRN (Reason: Shortness Of Breath Or Wheezing) Qty: 18 RF: 5 ipratropium-albuterol 0.5 mg-3 mg(2.5 mg base)/3 mL solution for nebulization 3 ml inhalation Q4H PRN (Reason: shortness of breath or wheezing) Qty: 180 RF: 5 Symbicort 160-4.5 mcg/actuation HFA aerosol inhaler 2 inh INH BID Qty: 10.2 RF: 5 Spiriva Respimat 2.5 mcg/actuation mist 2 inh inhalation QAM Qty: 4 RF: 5 aspirin [Aspirin Low Dose] 81 mg Tablet,Delayed Release (Dr/Ec) 81 mg PO QAM RF: 0 omega 9-eza-dpp-fish oil [Fish Oil] 1,000 mg (120 mg-180 mg) Capsule 1 cap PO QAM RF: 0 prednisone 10 mg tablet 40 mg PO DAILY Qty: 42 RF: 0 amlodipine 10 mg tablet 10 mg PO QAM RF: 0 Discharge Orders: Discharge Order (Routine); Ordered 02/07/21 Ordered By: Carson Andino/Other Patient Handouts: Shortness of Breath Coping Admission Data Admit Date/Time: 02/05/21 14:17 Attending Provider: Carson Calderon Admit Provider: Jim Mccann Primary Care Provider: Tk Almeida Other Providers: Jim Mccann ; Jeff Briceño ; Annel Nguyễn ; Jamey Meléndez Other Interventions: Discharge Summary Assessment (RN) Last Done: 02/07/21 12:56 Coding Level of Care Code D/C Day Management <30 mins Diagnoses SOB (shortness of breath) R06.02 COPD (chronic obstructive pulmonary disease) with emphysema J43.9 IPF (idiopathic pulmonary fibrosis) J84.112 Hypertension I10 Leukocytosis D72.829
== END 2021-02-07 13:48 | disposition home or self-care (01) | DRG 190 ==
LOC: ED 08:07 → SUATTDRO 14:17 → 2S 14:17

== ENCOUNTER 2021-05-26 14:27 | Inpatient (IN) ==
[2021-05-26] MEDS ORDERED: methylPREDNISolone 125 MG/2 ML VIAL IV STA (14:54)
[2021-05-26] MEDS ORDERED: ALBUT/IPRATROP 3MG/0.5MG NEB 3 ML VIAL NEB ONE (14:54)
[2021-05-26 15:32] LABS: Basophils # (auto) 0.05 K/uL (0-0.2); Basophils % (auto) 0.4 %; Eosinophils # (auto) 0.41 K/uL (0-0.5); Eosinophils % (auto) 3.6 %; Hematocrit (blood only) 42.4 % (42-52); Hemoglobin 14.1 g/dL (14.0-18.0); Immature Granulocytes # (auto) 0.03 K/uL (0.00-0.02); Immature Granulocytes % (auto) 0.3 %; Lymphocytes # (auto) 1.91 K/uL (1.2-3.4); Lymphocytes % (auto) 16.7 %; Mean Corpuscular Hemoglobin 30.8 pg (25-34); Mean Corpuscular Hgb Conc 33.3 g/dL (32-36); Mean Corpuscular Volume 92.6 fL (80-100); Mean Platelet Volume 10.3 fL (7.4-10.4); Monocytes # (auto) 0.66 K/uL (0.11-0.59); Monocytes % (auto) 5.8 %; Neutrophils # (auto) 8.39 K/uL (1.4-6.5); Neutrophils % (auto) 73.2 %; Platelet Count 314 K/uL (130-400); RDW Coefficient of Variation 13.8 % (11.5-14.5); RDW Standard Deviation 46.4 fL (36.4-46.3); Red Blood Count 4.58 M/uL (4.7-6.1); White Blood Count 11.45 K/uL (4.8-10.8)
[2021-05-26 15:46] LABS: INR 1.1 (0.9-1.1); Partial Thromboplastin Ratio 1.1; Partial Thromboplastin Time 29.9 Seconds (21.0-31.0)
[2021-05-26 15:47] LABS: Base Excess VBG -0.8 mEq/L; Oxygen Saturation VBG 69.7 %; pH VBG 7.42 (7.36-7.41)
[2021-05-26 15:50] LABS: Alanine Aminotransferase 27 U/L (12-78); Albumin Level 3.5 gm/dl (3.4-5.0); Aspartate Aminotransferase 22 U/L (15-37); BUN Creatinine Ratio 15.7 (10-20); Bilirubin Direct 0.3 mg/dl (0-0.2); Blood Urea Nitrogen 22 mg/dl (7-18); Calcium 8.9 mg/dl (8.5-10.1); Carbon Dioxide 23 mmol/L (21-32); Chloride 107 mmol/L (98-107); Est GFR (African American) 53.3 ml/min; Glucose 119 mg/dl (70-99); Lipase 58 U/L (73-393); Magnesium 2.2 mg/dl (1.8-2.4); Potassium 3.8 mmol/L (3.5-5.1); Sodium 139 mmol/L (136-145)
[2021-05-26 15:53] LABS: Albumin Globulin Ratio 0.8 (0.9-2); Alkaline Phosphatase 83 U/L (45-117); Bilirubin,Total 1.2 mg/dl (0.2-1); Globulin 4.3 gm/dl (2.5-4.0); NT Pro B Type Natriuretic Pept 5504 pg/ml (0-1800); Phosphorus 2.5 mg/dl (2.5-4.9); Total Protein 7.8 gm/dl (6.4-8.2); Troponin I < 0.015 ng/ml (0-0.045)
--- NOTE | 2021-05-26 15:53 | XRay Report ---
SINGLE VIEW CHEST CLINICAL HISTORY: Atypical chest pain. FINDINGS: An AP, portable, upright chest radiograph is compared to chest x-ray and chest CT dated 02/05. The heart is enlarged noting atherosclerotic calcification of the thoracic aorta. There is pro minence of the pulmonary vasculature and coarsening of interstitium. Findings of emphysema with super imposed chronic interstitial lung disease are similar to previous. There is bibasilar scarring/atelec tasis. No large pleural effusion or pneumothorax is seen. The skeletal structures are osteopenic. The bony thorax is grossly intact. A benign-appearing chondroid lesion is noted in the left proximal hum erus. IMPRESSION: 1. Cardiomegaly and emphysema are similar to previous with evidence of superimposed pulmonary fibrosi s. 2. There is prominence of the pulmonary vasculature and coarsening of the interstitium. Correlate cli nically for evidence of superimposed congestive change or an infectious/inflammatory pneumonitis. Rad iographic follow-up to resolution is recommended. ACT 112: Negative or not required by law. Electronically signed by: Fady Barajas M.D. 05/26/2021 3:52 PM
[2021-05-26] MEDS ORDERED: OPTIRAY 320 125ml IV ONE (17:09)
--- NOTE | 2021-05-26 18:10 | History & Physical Report ---
Date of Service May 26, 2021 Assessment & Plan (1) Chronic hypoxemic respiratory failure: Plan: Patient now acute on chronic respiratory failure. He will need augmented oxygen will give him some Solu-Medrol 40 every 12. Continuing bronchodilators, will have pulmonary consultation patient confirms he is a DNR/DNI (2) Idiopathic interstitial pneumonia: Plan: Patient is seen pulmonary stent in the past etiology is unclear for his interstitial fibrosis (3) Hypertension: Plan: Continue amlodipine 10 mg a day (4) CKD (chronic kidney disease): Plan: Patient is currently kidney disease stage III (5) DVT prophylaxis: Plan: Lovenox use for DVT prevention Patient is a DNR/DNI History of Present Illness Primary Care Provider: Tk Almeida, DO 86-year-old male who suffers from pulmonary fibrosis and usual interstitial pneumonitis. He has a history also COPD requiring oxygen. He presents with worsening shortness of breath and is currently requiring 7 L in the emergency department to maintain his saturations. Patient states she has had a subtle but continual decline at home cannot incite a particular event has not had any fevers or chills. He says he had some nonproductive coughing episodes. He has been wearing both of his oxygen concentrator's and even his portable oxygen at home to try to get his oxygen levels to maintain above 90. He says with exertion they typically go down. He does not typically take steroids at home he is not use the morphine has been prescribed for shortness of breath. He however has an increasing anxiety of late Allergies Allergy/AdvReac Type Severity Reaction Status Date / Time No Known Allergies Allergy Verified 05/26/21 14:59 Home Medications Medication Instructions Recorded Confirmed Type aspirin 81 mg tablet,delayed 81 mg PO QAM 05/31/18 05/26/21 History release (Aspirin Low Dose) omega 8-zfy-eso-fish oil 1,000 mg 1 cap PO QAM 05/31/18 05/26/21 History (120 mg-180 mg) capsule (Fish Oil) ipratropium 0.5 mg-albuterol 3 mg 3 ml INHALATION Q4H PRN #180 vial 09/18/20 05/26/21 Rx (2.5 mg base)/3 mL nebulization soln amlodipine 10 mg tablet 10 mg PO QAM 02/05/21 05/26/21 History morphine concentrate 100 mg/5 mL 5 mg PO Q6H PRN #30 ml 02/07/21 05/26/21 Rx (20 mg/mL) oral solution albuterol sulfate 90 mcg/actuation 2 - 4 puff INHALATION Q6H PRN #18 g 03/14/21 05/26/21 Rx aerosol inhaler budesonide-formoterol HFA 160 2 inh INH BID #10.2 g 04/25/21 05/26/21 Rx mcg-4.5 mcg/actuation aerosol inhaler (Symbicort) Hospital Bed Homecare (Hospital #1 ea 05/24/21 Rx Bed) rollable table #1 ea 05/24/21 Rx tiotropium bromide 2.5 2 inh INHALATION QAM #4 g 05/24/21 05/26/21 Rx mcg/actuation mist for inhalation (Spiriva Respimat) Past Med/Surg History Medical History Abnormal albumin Acute on chronic respiratory failure with hypoxemia Bullous emphysema Cancer Carotid stenosis, left Cerebral infarction Chronic hypoxemic respiratory failure CKD (chronic kidney disease) COPD (chronic obstructive pulmonary disease) Dyslipidemia Fever Hypertension Idiopathic interstitial pneumonia Pulmonary emphysema Surgical History History of appendectomy History of cataract surgery History of hernia repair History of laparoscopic cholecystectomy History of tonsillectomy and adenoidectomy Family History Unknown Diabetes Mother Stroke syndrome Father Coronary arteriosclerosis Denies family history of Ovarian cancer Prostate cancer Myocardial infarction Breast cancer Colorectal cancer Social History Smoking Status: Former smoker Tobacco Type: Cigarettes Age Started Using Tobacco: 19; Age Quit Using Tobacco: 54; packs per day: 2; Second Hand Exposure: Yes (as child ); Hx Alcohol Use: No Hx Substance Use: No Preferred Language: Tajik Communication Ability: Effective Visual Impairment: No Limitations Hearing Ability: Hard of Hearing Installation Coordinator Required: No Beliefs That Will Affect Care: None marital status: Current Living Situation: Spouse current occupational status: retired 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 Feels Safe at Home: Yes Childhood Exposure to Second-Hand Smoke: Yes Dental Care, Regularly: Yes Physical Activity Frequency: Does not Exercise Seatbelt Use: always Sunscreen Use: No (does not go outside ) Assistive Devices: Oxygen - Continuous Review of Systems Review of Systems: Moderate respiratory distress and fatigue no headache, no visual changes no speech or swallowing issues no chest pain, pressure or palpitations increasing shortness of breath nonproductive coughing no abdominal pain, nausea or vomiting, diarrhea or constipation no dysuria, hematuria or frequency no focal joint pain or swelling no back pain, CVA tenderness or radicular pain no bruising, bleeding or rashes no focal signs of weakness or numbness or altered sensation no complaints of anxiety or depression.. Physical Exam Physical Exam: The patient appeared chronically ill dyspneic with speech Vital signs as documented. Head exam is normocephalic atraumatic Neck is with mild JVD, thyromegaly, or carotid bruits. Lungs are diminished throughout worsened in the upper lobes some mild basilar rales are heard Cardiac exam, Rhythm is regular.. No murmurs, rubs or gallops. Abdominal exam reveals normal bowel sounds, soft non tender, no masses Extremities are trace edematous and both pedal pulses are present Neurologic exam is alert and oriented, no focal loss of strength or sensation Skin is without bruises or rashes Psychologically is with concerns for anxiety Results & Data Results & Data ([facility]) Vital Signs (Past 12 Hours) Vital Signs Temp Pulse Pulse Resp BP BP Pulse Ox 05/26/21 16:45 100 H 20 139/75 92 05/26/21 15:16 84 17 94 05/26/21 14:55 97 H 26 H 95 05/26/21 14:39 97 H 26 H 139/75 96 05/26/21 14:27 97.7 F 86 20 139/75 84 L Diagnostic Findings Chest x-ray performed 05/26/2021 shows cardiomegaly and emphysema similar to previous, superimposed pulmonary fibrosis. ECG Additional Comments: EKG shows sinus rhythm first-degree block no significant acute changes low voltage likely from his COPD PG Care Time/CCT Total # of Minutes Spent Total Time Spent with Patient: Total time spent is greater than 50% in coordination of care (as documented) at patient's floor/unit and/or counseling patient: Coding Level of Care Code 43522 Initial Inpt Care Lvl 3 Diagnoses Chronic hypoxemic respiratory failure J96.11 Idiopathic interstitial pneumonia J84.111 Hypertension I10 CKD (chronic kidney disease) N18.9 DVT prophylaxis Z29.9
--- NOTE | 2021-05-26 18:13 | CT Scan Report ---
CT ANGIOGRAM OF THE CHEST CLINICAL HISTORY: Hypoxia. COMPARISON STUDY: Chest x-ray dated 05/26/2021. Chest CT scans dated 04/21/2018 and 02/05/2021. TECHNIQUE: Following the IV administration of 120 cc of Optiray 320, CT angiogram of the chest was pe rformed from the upper abdomen to the thoracic inlet utilizing the pulmonary embolus protocol. Images are reviewed in the axial, sagittal, and coronal planes. 3-D MIPS images are created and assessed. I V contrast was administered without complication. A dose lowering technique was utilized adhering to the principles of ALARA. The examination is degraded by motion artifact. CT DOSE: 535.49 mGycm FINDINGS: Thyroid: Imaged portions of the thyroid gland are normal in size and attenuation. Thoracic aorta: There is atherosclerotic calcification of the thoracic aorta, which is normal in gianluca barrett and demonstrates standard 3-vessel arch anatomy. No dissection is seen. Pulmonary vasculature: Enlargement of the main pulmonary arteries suggests pulmonary artery hypertens ion. There are no filling defects identified in main, lobar, or segmental pulmonary branches to sugge st pulmonary embolus. Heart: The heart is enlarged and without pericardial effusion. The coronary arteries are densely calc ified. Lungs and pleural spaces: There is advanced emphysema with evidence of superimposed interstitial/fibr otic lung disease. Mild traction bronchiectasis is noted in the lower lobes. Apical scarring is obser ida. The trachea and central airways are clear. There is no pneumothorax or pleural effusion. An 11 m m irregular nodule in the right upper lobe as seen on image #212, a 1.7 cm opacity at the right apex is seen on image #231, and a similar pleural-based nodule in the right upper lobe as seen on image nu mber torsion 13. An 11 mm apical nodular density is seen on image #249. Dependent opacities have incr eased from 02/05/2021 and there is coarsening of interstitium. No lobar consolidation is identified. Mediastinum: Mediastinal lymphadenopathy is similar to previous. An AP window node measures 1.1 cm sh ort axis. Right peritracheal nodes measure up to 1.2 cm in short axis. Ana: Hilar lymphadenopathy similar to previous. Hilar nodes measure up to 1.3 cm in short axis. Axillae: There is no axillary lymphadenopathy. Upper abdomen: There is a small hiatal hernia. Partially visualized upper abdominal viscera is otherw ise grossly unremarkable. Skeletal structures: The skeletal structures are osteopenic. Degenerative change and hyperkyphosis ar e noted in the thoracic spine. No lytic or blastic bony lesions are seen. Arthritic change is noted i n the shoulders. IMPRESSION: 1. There is no evidence of pulmonary embolus in the main, lobar, or segmental pulmonary arteries. 2. Cardiomegaly and advanced emphysema with probable changes of superimposed interstitial/fibrotic bryant ng disease. 3. There is coarsening of interstitial and increasing dependent opacities. This could represent a sup erimposed infectious/inflammatory pneumonitis or possibly congestive change. Clinical correlation faiza l be required. 4. Bilateral upper lobe nodular opacities are unchanged from 02/05/2021. These are pathologically indet erminant, and an additional 12 month follow-up examination is recommended is recommended as neoplasm is not excluded. 5. Mediastinal and hilar lymphadenopathy are unchanged and likely related to chronic lung disease. 6. Additional findings as above. ACT 112: Negative or not required by law. Electronically signed by: Fady Barajas M.D. 05/26/2021 6:11 PM
[2021-05-26] MEDS ORDERED: FUROSEMIDE 40 MG/4 ML VIAL IV STA (18:24)
[2021-05-26] MEDS ORDERED: ALUMINUM/MAGNESIUM SUSP 30 ML UDC PO PRN (19:56)
[2021-05-26] MEDS ORDERED: ONDANSETRON INJ 2 MG/ML 2 ML VIAL IV PRN (19:56)
[2021-05-26] MEDS ORDERED: ACETAMINOPHEN 325 MG TAB PO PRN (19:56)
--- NOTE | 2021-05-26 20:37 | Emergency Department Note ---
Impression & Plan Acute and chronic respiratory failure with hypoxia, COPD (chronic obstructive pulmonary disease), IPF (idiopathic pulmonary fibrosis) (Ruled Out): Acute exacerbation of chronic obstructive airways disease ED Provider Note NAME: WILLIAM GERONIMO AGE: 86 SEX: M ARRIVES VIA: Ambulance INFORMANT: Patient, ED PROVIDER(S): Addison Freed MD CHIEF COMPLAINT: SOB PLAN: Disposition: Admit MEDICAL DECISION MAKING: The patient is a pleasant 86 y/o gentleman with a pmhx of chronic respiratory failure on home O2, interstitial lung disease/pulmonary fibrosis, emphysema who presents to the emergency department accompanied by his for evaluation of worsening SOB and increased O2 requirement from his baseline. He reports he has had increasing sob over the past couple of months but in particular he feels worse over the past 4-5 days where even walking from one room to another in his home makes him severely short of breath despite his home O2. Further he reports needing to put both his O2 tank and concentrator on simultaneously in order to keep his O2 saturation at his baselines range of 88-92%. He reports feeling as though he has mucus in his chest but is unable to get it out. He denies n/v/d or urinary symptoms. He denies known Covid-19 exposures. On arrival the patient the patient is acute on chronically ill appearing, mildly dyspneic but in NAD, AFVSS. O2 saturation was 84% on 4L NC improved to low 90s on 10L oxymask. He appears Euvolemic though with mild pedal edema, which they report is slightly worse than his baseline. Lungs are diminished with underlying wheezes. EKG without overt acute ischemia. CXR demonstrates nonspecific interstitial thickening with known pulmonary fibrosis. WBC 11.4K, nonspecific. H/H, platelets wnl. Chemistry without acidosis. Electrolytes unremarkable. LFTs without significant abnormality. Troponin negative/undetectable. BNP 5500 increased from 4K in January. CTA chest negative for PE. Nonspecific superimposed interstitial thickening again seen. Patient was treated with continuous duoneb and solumedrol on arrival however still with increased O2 requirement. Patient and agree with plan for admission. Blood cultures and procalcitonin ordered and pending. Will defer decision for ABX treatment to admitting team. Case was discussed with Dr. Purcell, [facility] hospitalist, who will evaluate the patient for admission. Triage Nursing notes reviewed and agree them Prior medical records reviewed Vital Signs: reviewed and remarkable for hypoxia. Differential diagnosis: Reactive airway disease, pneumonia, pneumothorax, COPD, CHF, infections, cardiac ischemia, pulmonary embolism, musculoskeletal, gastrointestinal, as well as other pathologies. ER treatment provided: See below. Diagnostics interpreted by me: ECG: Sinus rhythm with sinus arrhythmia with 1st degree A-V block, 88bpm, no ectopy, Nonspecific TWA, no overt ST elevation or depression Cardiac Monitoring: An order for continuous cardiac monitoring was placed and demonstrated SR, 88bpm, no ectopy. Laboratory studies: See below Imaging studies: See below Consultation(s): Case was discussed with Dr. Purcell, [facility] hospitalist, who will evaluate the patient for admission. HPI: The patient is a pleasant 86 y/o gentleman with a pmhx of chronic respiratory failure on home O2, interstitial lung disease/pulmonary fibrosis, emphysema who presents to the emergency department accompanied by his for evaluation of worsening SOB and increased O2 requirement from his baseline. He reports he has had increasing sob over the past couple of months but in particular he feels worse over the past 4-5 days where even walking from one kimber m to another in his home makes him severely short of breath despite his home O2. Further he reports needing to put both his O2 tank and concentrator on simultaneously in order to keep his O2 saturation at his baselines range of 88- 92%. He reports feeling as though he has mucus in his chest but is unable to get it out. He denies n/v/d or urinary symptoms. He denies known Covid-19 exposures. ROS: See above HPI for pertinent positives & negatives. A total of 10 systems re viewed and were otherwise negative. PAST MEDICAL HISTORY:See Below PAST SURGICAL HISTORY:See Below FAMILY HISTORY:See Below SOCIAL HISTORY:See Below HOME MEDICATIONS:See Below ALLERGIES:See Below VITALS:See Below PHYSICAL EXAMINATION: GENERAL: Awake, alert, acute on chronically ill appearing, in no distress HENT: Normocephalic, atraumatic. Oropharynx unremarkable. EYES: Normal conjunctiva. Sclera non-icteric. NECK: Supple. No nuchal rigidity. FROM. No JVD. RESPIRATORY: Diminished throughout with underlying wheezes. Mildly dyspneic, in no distress. CARDIAC: Regular rate, normal rhythm. Extremities warm and well perfused. Pulses equal. ABDOMEN: Soft, non-distended. No tenderness to palpation. No rebound or guarding. No masses. RECTAL: Deferred. MUSCULOSKELETAL: Chest examination reveals no tenderness. The back is symmetrical on inspection without obvious abnormality. There is no CVA tenderness to palpation. No joint edema. LOWER EXTREMITIES: Calves are equal size bilaterally and non-tender. Mild bilateral pedal edema. No discoloration. NEURO: Normal sensorium. No sensory or motor deficits noted. SKIN: No rash or jaundice noted. ED Course: Critical Care: I have personally spent greater than 35 minutes of critical care time in the direct management of this patient. This includes bedside care, interpretation of diagnostic studies, and testing, discussion with consultants, patient, and family members, and other required patient management activities. This 35 minutes is in excess of all separately billable procedures. Addison Freed MD Past Med/Surg History Medical History Abnormal albumin Acute on chronic respiratory failure with hypoxemia Bullous emphysema Cancer Carotid stenosis, left Cerebral infarction Chronic hypoxemic respiratory failure CKD (chronic kidney disease) COPD (chronic obstructive pulmonary disease) Fever Hypertension Idiopathic interstitial pneumonia Pulmonary emphysema Surgical History History of appendectomy History of cataract surgery History of hernia repair History of laparoscopic cholecystectomy History of tonsillectomy and adenoidectomy Family History Unknown Diabetes Mother Stroke syndrome Father Coronary arteriosclerosis Denies family history of Ovarian cancer Prostate cancer Myocardial infarction Breast cancer Colorectal cancer Social History Smoking Status: Former smoker Tobacco Type: Cigarettes Age Started Using Tobacco: 19; Age Quit Using Tobacco: 54; packs per day: 2; Second Hand Exposure: No; Do You Dip or Chew Tobacco: No; Hx Alcohol Use: No Hx Substance Use: No Preferred Language: Indonesian Communication Ability: Effective Visual Impairment: No Limitations Hearing Ability: Hard of Hearing 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 Required: No Beliefs That Will Affect Care: None marital status: Current Living Situation: Spouse current occupational status: retired 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 Other Information That Helps Us Care for You: No Feels Safe at Home: Yes Safety Concerns: Feels Safe At This Time Childhood Exposure to Second-Hand Smoke: Yes Dental Care, Regularly: Yes Physical Activity Frequency: Does not Exercise Seatbelt Use: always Sunscreen Use: No (does not go outside ) Assistive Devices: Denture - Upper, Denture - Lower and Oxygen - Continuous Allergies Allergies Allergy/AdvReac Type Severity Reaction Status Date / Time No Known Allergies Allergy Verified 05/26/21 14:59 Home Meds Home Medications Medication Instructions Recorded Confirmed aspirin 81 mg tablet,delayed 81 mg PO QAM 05/31/18 05/26/21 release (Aspirin Low Dose) omega 0-rgw-qea-fish oil 1,000 mg 1 cap PO QAM 05/31/18 05/26/21 (120 mg-180 mg) capsule (Fish Oil) amlodipine 10 mg tablet 10 mg PO QAM 02/05/21 05/26/21 Previous Rx's Medication Instructions Recorded ipratropium 0.5 mg-albuterol 3 mg 3 ml INHALATION Q4H PRN #180 vial 09/18/20 (2.5 mg base)/3 mL nebulization soln morphine concentrate 100 mg/5 mL 5 mg PO Q6H PRN #30 ml 02/07/21 (20 mg/mL) oral solution albuterol sulfate 90 mcg/actuation 2 - 4 puff INHALATION Q6H PRN #18 g 03/14/21 aerosol inhaler budesonide-formoterol HFA 160 2 inh INH BID #10.2 g 04/25/21 mcg-4.5 mcg/actuation aerosol inhaler (Symbicort) Hospital Bed Homecare (Hospital #1 ea 05/24/21 Bed) rollable table #1 ea 05/24/21 tiotropium bromide 2.5 2 inh INHALATION QAM #4 g 05/24/21 mcg/actuation mist for inhalation (Spiriva Respimat) Results & Data (ED) Vital Signs Vital Signs - 24 hr 05/26/21 14:27 05/26/21 14:39 05/26/21 14:55 Temperature 36.5 C Temperature Source Axillary Pulse Rate 86 97 H 97 H Pulse Rate [Right Finger] Pulse Rate from SpO2 Sensor 85 Pulse Rhythm Regular Pulse Rhythm [Right Finger] Pulse Strength [Right Finger] Respiratory Rate 20 26 H 26 H Respiratory Effort / Characteristics Non-Labored Respiratory Depth Normal Respiratory Pattern Regular Blood Pressure 139/75 139/75 Blood Pressure [Right Arm] Blood Pressure Mean 96 96 Blood Pressure Mean [Right Arm] Pulse Oximetry 84 L 96 95 Oxygen Delivery Method Oxymask Oxymask Oxygen Flow Rate 4 10 Sepsis Recent Fever Within 48 Hours No Sepsis New/Unexplained Change in Mental Status No Sepsis Action Taken by Nursing No Action Required Oxygen Flow Rate - Titration 10 Pulse Oximetry Post Tiitration 96 05/26/21 15:16 05/26/21 16:45 Temperature Temperature Source Pulse Rate Pulse Rate [Right Finger] 84 100 H Pulse Rate from SpO2 Sensor Pulse Rhythm Pulse Rhythm [Right Finger] Regular Pulse Strength [Right Finger] Normal Respiratory Rate 17 20 Respiratory Effort / Characteristics Spontaneous Non-Labored Respiratory Depth Normal Respiratory Pattern Blood Pressure Blood Pressure [Right Arm] 139/75 Blood Pressure Mean Blood Pressure Mean [Right Arm] 96 Pulse Oximetry 94 92 Oxygen Delivery Method Oxymask Oxymask Oxygen Flow Rate 10 7 Sepsis Recent Fever Within 48 Hours Sepsis New/Unexplained Change in Mental Status Sepsis Action Taken by Nursing Oxygen Flow Rate - Titration Pulse Oximetry Post Tiitration Laboratory Data Attestation: I reviewed the patient's lab results. Result diagrams: 05/26/21 15:18 05/26/21 15:18 Lab Results 05/26/21 05/26/21 05/26/21 Range/Units 15:18 15:18 15:18 WBC 11.45 H (4.8-10.8) K/uL RBC 4.58 L (4.7-6.1) M/uL Hgb 14.1 (14.0-18.0) g/dL Hct 42.4 (42-52) % MCV 92.6 (80-100) fL MCH 30.8 (25-34) pg MCHC 33.3 (32-36) g/dL RDW Std Deviation 46.4 H (36.4-46.3) fL RDW Coeff of Matt 13.8 (11.5-14.5) % Plt Count 314 (130-400) K/uL MPV 10.3 (7.4-10.4) fL Immature Gran % (Auto) 0.3 % Neut % (Auto) 73.2 % Lymph % (Auto) 16.7 % [place] % (Auto) 5.8 % Eos % (Auto) 3.6 % Baso % (Auto) 0.4 % Neut # (Auto) 8.39 H (1.4-6.5) K/uL Lymph # (Auto) 1.91 (1.2-3.4) K/uL [place] # (Auto) 0.66 H (0.11-0.59) K/uL Eos # (Auto) 0.41 (0-0.5) K/uL Baso # (Auto) 0.05 (0-0.2) K/uL Immature Gran # (Auto) 0.03 H (0.00-0.02) K/uL PT 11.0 (9.0-12.0) Seconds INR 1.1 (0.9-1.1) APTT 29.9 (21.0-31.0) Seconds PTT Ratio 1.1 VBG pH (7.36-7.41) VBG pCO2 (38-50) mmHg VBG pO2 mmHg VBG HCO3 mmol/L VBG O2 Saturation % VBG Base Excess mEq/L Barometric Pressure mm/Hg Sodium 139 (136-145) mmol/L Potassium 3.8 (3.5-5.1) mmol/L Chloride 107 (98-107) mmol/L Carbon Dioxide 23 (21-32) mmol/L Anion Gap 9.0 (3-11) BUN 22 H (7-18) mg/dl Creatinine 1.38 (0.6-1.4) mg/dl Est Cr Clr Drug Dosing 40.0 ml/min Est GFR ( Amer) 53.3 ml/min Est GFR (Non-Af Amer) 46.0 ml/min BUN/Creatinine Ratio 15.7 (10-20) Glucose 119 H (70-99) mg/dl Calcium 8.9 (8.5-10.1) mg/dl Phosphorus 2.5 (2.5-4.9) mg/dl Magnesium 2.2 (1.8-2.4) mg/dl Total Bilirubin 1.2 H (0.2-1) mg/dl Direct Bilirubin 0.3 H (0-0.2) mg/dl AST 22 (15-37) U/L ALT 27 (12-78) U/L Alkaline Phosphatase 83 (45-117) U/L Troponin I < 0.015 (0-0.045) ng/ml NT-Pro-B Natriuret Pep 5504 H (0-1800) pg/ml Total Protein 7.8 (6.4-8.2) gm/dl Albumin 3.5 (3.4-5.0) gm/dl Globulin 4.3 H (2.5-4.0) gm/dl Albumin/Globulin Ratio 0.8 L (0.9-2) Lipase 58 L (73-393) U/L Procalcitonin (0-0.5) ng/ml COVID-19 Eval Order SARS-CoV-2 (PCR) (Negative) 05/26/21 05/26/21 05/26/21 Range/Units 15:18 16:16 16:16 WBC (4.8-10.8) K/uL RBC (4.7-6.1) M/uL Hgb (14.0-18.0) g/dL Hct (42-52) % MCV (80-100) fL MCH (25-34) pg MCHC (32-36) g/dL RDW Std Deviation (36.4-46.3) fL RDW Coeff of Matt (11.5-14.5) % Plt Count (130-400) K/uL MPV (7.4-10.4) fL Immature Gran % (Auto) % Neut % (Auto) % Lymph % (Auto) % [place] % (Auto) % Eos % (Auto) % Baso % (Auto) % Neut # (Auto) (1.4-6.5) K/uL Lymph # (Auto) (1.2-3.4) K/uL [place] # (Auto) (0.11-0.59) K/uL Eos # (Auto) (0-0.5) K/uL Baso # (Auto) (0-0.2) K/uL Immature Gran # (Auto) (0.00-0.02) K/uL PT (9.0-12.0) Seconds INR (0.9-1.1) APTT (21.0-31.0) Seconds PTT Ratio VBG pH 7.42 H (7.36-7.41) VBG pCO2 36 L (38-50) mmHg VBG pO2 37 mmHg VBG HCO3 23 mmol/L VBG O2 Saturation 69.7 % VBG Base Excess -0.8 mEq/L Barometric Pressure 731.2 mm/Hg Sodium (136-145) mmol/L Potassium (3.5-5.1) mmol/L Chloride (98-107) mmol/L Carbon Dioxide (21-32) mmol/L Anion Gap (3-11) BUN (7-18) mg/dl Creatinine (0.6-1.4) mg/dl Est Cr Clr Drug Dosing ml/min Est GFR ( Amer) ml/min Est GFR (Non-Af Amer) ml/min BUN/Creatinine Ratio (10-20) Glucose (70-99) mg/dl Calcium (8.5-10.1) mg/dl Phosphorus (2.5-4.9) mg/dl Magnesium (1.8-2.4) mg/dl Total Bilirubin (0.2-1) mg/dl Direct Bilirubin (0-0.2) mg/dl AST (15-37) U/L ALT (12-78) U/L Alkaline Phosphatase (45-117) U/L Troponin I (0-0.045) ng/ml NT-Pro-B Natriuret Pep (0-1800) pg/ml Total Protein (6.4-8.2) gm/dl Albumin (3.4-5.0) gm/dl Globulin (2.5-4.0) gm/dl Albumin/Globulin Ratio (0.9-2) Lipase (73-393) U/L Procalcitonin (0-0.5) ng/ml COVID-19 Eval Order Covid19 at [facility] SARS-CoV-2 (PCR) NEGATIVE (Negative) 05/26/21 Range/Units 18:18 WBC (4.8-10.8) K/uL RBC (4.7-6.1) M/uL Hgb (14.0-18.0) g/dL Hct (42-52) % MCV (80-100) fL MCH (25-34) pg MCHC (32-36) g/dL RDW Std Deviation (36.4-46.3) fL RDW Coeff of Matt (11.5-14.5) % Plt Count (130-400) K/uL MPV (7.4-10.4) fL Immature Gran % (Auto) % Neut % (Auto) % Lymph % (Auto) % [place] % (Auto) % Eos % (Auto) % Baso % (Auto) % Neut # (Auto) (1.4-6.5) K/uL Lymph # (Auto) (1.2-3.4) K/uL [place] # (Auto) (0.11-0.59) K/uL Eos # (Auto) (0-0.5) K/uL Baso # (Auto) (0-0.2) K/uL Immature Gran # (Auto) (0.00-0.02) K/uL PT (9.0-12.0) Seconds INR (0.9-1.1) APTT (21.0-31.0) Seconds PTT Ratio VBG pH (7.36-7.41) VBG pCO2 (38-50) mmHg VBG pO2 mmHg VBG HCO3 mmol/L VBG O2 Saturation % VBG Base Excess mEq/L Barometric Pressure mm/Hg Sodium (136-145) mmol/L Potassium (3.5-5.1) mmol/L Chloride (98-107) mmol/L Carbon Dioxide (21-32) mmol/L Anion Gap (3-11) BUN (7-18) mg/dl Creatinine (0.6-1.4) mg/dl Est Cr Clr Drug Dosing ml/min Est GFR ( Amer) ml/min Est GFR (Non-Af Amer) ml/min BUN/Creatinine Ratio (10-20) Glucose (70-99) mg/dl Calcium (8.5-10.1) mg/dl Phosphorus (2.5-4.9) mg/dl Magnesium (1.8-2.4) mg/dl Total Bilirubin (0.2-1) mg/dl Direct Bilirubin (0-0.2) mg/dl AST (15-37) U/L ALT (12-78) U/L Alkaline Phosphatase (45-117) U/L Troponin I (0-0.045) ng/ml NT-Pro-B Natriuret Pep (0-1800) pg/ml Total Protein (6.4-8.2) gm/dl Albumin (3.4-5.0) gm/dl Globulin (2.5-4.0) gm/dl Albumin/Globulin Ratio (0.9-2) Lipase (73-393) U/L Procalcitonin < 0.05 (0-0.5) ng/ml COVID-19 Eval Order SARS-CoV-2 (PCR) (Negative) Administered Medications Albuterol (Albut/Ipratrop 3mg/0.5mg Neb 3 Ml Vial) 3 ml NEB Q4R IZAIAH Stop: 06/25/21 19:55 Last Admin: 05/26/21 21:31 Dose: Not Given Documented by: [id number] Admin: 05/26/21 21:18 Dose: 3 ml Documented by: [id number] Methylprednisolone 40 mg/ (Syringe) 0.64 mls @ 1.5 mls/min IV BID IZAIAH Stop: 06/25/21 20:59 Last Admin: 05/26/21 21:59 Dose: 1.5 mls/min Documented by: [id number] Lorazepam (Lorazepam 0.5 Mg Tab) 0.5 mg PO Q6H PRN PRN Reason: Anxiety Stop: 06/25/21 19:55 Last Admin: 05/26/21 22:04 Dose: 0.5 mg Documented by: [id number] Discontinued Medications Albuterol (Albut/Ipratrop 3mg/0.5mg Neb 3 Ml Vial) 12 ml NEB ONE ONE Stop: 05/26/21 14:55 Last Admin: 05/26/21 15:15 Dose: 12 ml Documented by: [id number] Azithromycin (Azithromycin 250 Mg Tab) 500 mg PO NOW ONE Stop: 05/26/21 21:01 Last Admin: 05/26/21 21:59 Dose: 500 mg Documented by: [id number] Furosemide (Furosemide 40 Mg/4 Ml Vial) 40 mg IV NOW STA Stop: 05/26/21 18:25 Last Admin: 05/26/21 18:56 Dose: 40 mg Documented by: [id number] Ioversol (Optiray 320 125ml) 120 ml IV ONCE ONE Stop: 05/26/21 17:10 Last Admin: 05/26/21 17:09 Dose: 120 ml Documented by: [id number] Methylprednisolone (Methylprednisolone 125 Mg/2 Ml Vial) 125 mg IV NOW STA Stop: 05/26/21 14:55 Last Admin: 05/26/21 15:57 Dose: 125 mg Documented by: [id number] Imaging Data Radiologist's Impression: Chest X-Ray 05/26/21 14:55 SINGLE VIEW CHEST CLINICAL HISTORY: Atypical chest pain. FINDINGS: An AP, portable, upright chest radiograph is compared to chest x-ray and chest CT dated 02/05/2021. The heart is enlarged noting atherosclerotic calcification of the thoracic aorta. There is prominence of the pulmonary vasc ulature and coarsening of interstitium. Findings of emphysema with superimposed chronic interstitial lung disease are similar to previous. There is bibasilar scarring/atelectasis. No large pleural effusion or pneumothorax is seen. The skeletal structures are osteopenic. The bony thorax is grossly intact. A benign- appearing chondroid lesion is noted in the left proximal humerus. IMPRESSION: 1. Cardiomegaly and emphysema are similar to previous with evidence of superimposed pulmonary fibrosis. 2. There is prominence of the pulmonary vasculature and coarsening of the interstitium. Correlate clinically for evidence of superimposed congestive change or an infectious/inflammatory pneumonitis. Radiographic follow-up to resolution is recommended. ACT 112: Negative or not required by law. Electronically signed by: Fady Barajas M.D. 05/26/2021 3:52 PM Chest CTA 05/26/21 14:57 CT ANGIOGRAM OF THE CHEST CLINICAL HISTORY: Hypoxia. COMPARISON STUDY: Chest x-ray dated 05/26/2021. Chest CT scans dated 04/21/2018 and 02/05/2021. TECHNIQUE: Following the IV administration of 120 cc of Optiray 320, CT angiogram of the chest was performed from the upper abdomen to the thoracic inlet utilizing the pulmonary embolus protocol. Images are reviewed in the axial, sagittal, and coronal planes. 3-D MIPS images are created and assessed. IV contrast was administered without complication. A dose lowering technique was utilized adhering to the principles of ALARA. The examination is degraded by motion artifact. CT DOSE: 535.49 mGycm FINDINGS: Thyroid: Imaged portions of the thyroid gland are normal in size and attenuation. Thoracic aorta: There is atherosclerotic calcification of the thoracic aorta, which is normal in caliber and demonstrates standard 3-vessel arch anatomy. No dissection is seen. Pulmonary vasculature: Enlargement of the main pulmonary arteries suggests pulmonary artery hypertension. There are no filling defects identified in main, lobar, or segmental pulmonary branches to suggest pulmonary embolus. Heart: The heart is enlarged and without pericardial effusion. The coronary arteries are densely calcified. Lungs and pleural spaces: There is advanced emphysema with evidence of superimposed interstitial/fibrotic lung disease. Mild traction bronchiectasis is noted in the lower lobes. Apical scarring is observed. The trachea and central airways are clear. There is no pneumothorax or pleural effusion. An 11 mm irregular nodule in the right upper lobe as seen on image #212, a 1.7 cm opacity at the right apex is seen on image #231, and a similar pleural-based nodule in the right upper lobe as seen on image number torsion 13. An 11 mm apical nodular density is seen on image #249. Dependent opacities have increased from 02/05/2021 and there is coarsening of interstitium. No lobar consolidation is identified. Mediastinum: Mediastinal lymphadenopathy is similar to previous. An AP window node measures 1.1 cm short axis. Right peritracheal nodes measure up to 1.2 cm in short axis. Ana: Hilar lymphadenopathy similar to previous. Hilar nodes measure up to 1.3 cm in short axis. Axillae: There is no axillary lymphadenopathy. Upper abdomen: There is a small hiatal hernia. Partially visualized upper abdominal viscera is otherwise grossly unremarkable. Skeletal structures: The skeletal structures are osteopenic. Degenerative change and hyperkyphosis are noted in the thoracic spine. No lytic or blastic bony lesions are seen. Arthritic change is noted in the shoulders. IMPRESSION: 1. There is no evidence of pulmonary embolus in the main, lobar, or segmental pulmonary arteries. 2. Cardiomegaly and advanced emphysema with probable changes of superimposed interstitial/fibrotic lung disease. 3. There is coarsening of interstitial and increasing dependent opacities. This could represent a superimposed infectious/inflammatory pneumonitis or possibly congestive change. Clinical correlation will be required. 4. Bilateral upper lobe nodular opacities are unchanged from 02/05/2021. These are pathologically indeterminant, and an additional 12 month follow-up examination is recommended is recommended as neoplasm is not excluded. 5. Mediastinal and hilar lymphadenopathy are unchanged and likely related to chronic lung disease. 6. Additional findings as above. ACT 112: Negative or not required by law. Electronically signed by: Fady Barajas M.D. 05/26/2021 6:11 PM Discharge Plan Visit Data Chief Complaint: Respiratory Distress Stated Complaint: hypoxia ED Provider: Addison Freed Discharge Problem: Acute and chronic respiratory failure with hypoxia, COPD (chronic obstructive p ulmonary disease), IPF (idiopathic pulmonary fibrosis) Discharge Problem: (Ruled Out): Acute exacerbation of chronic obstructive airways disease Patient Disposition: Admitted As Inpatient Discharge Instructions Interventions: ED Discharge Assessment Last Done: 05/26/21 19:50 Discharge Problem: COPD (chronic obstructive pulmonary disease) Qualifiers: COPD type: emphysema Emphysema type: unspecified Qualified Code(s): J43.9 - Emphysema, unspecified
[2021-05-26] MEDS ORDERED: ENOXAPARIN INJ 40 MG/0.4 ML SYR SQ SCH (21:00)
[2021-05-26] MEDS ORDERED: AZITHROMYCIN 250 MG TAB PO ONE (21:00)
[2021-05-26] MEDS: ALBUT/IPRATROP 3MG/0.5MG NEB 3 ML VIAL NEB SCH ×2 (21:18→21:31)
[2021-05-26] MEDS: methylPREDNISolone 40 MG in SYRINGE 0 ML IV SCH (21:59)
[2021-05-26] MEDS: LORazepam 0.5 MG TAB PO PRN (22:04)
[2021-05-27] MEDS: ALBUT/IPRATROP 3MG/0.5MG NEB 3 ML VIAL NEB SCH ×6 (02:59→23:03)
--- NOTE | 2021-05-27 08:36 | Pulmonary Consultation ---
Date of Consultation May 27, 2021 Assessment & Plan (1) Acute and chronic respiratory failure with hypoxia: (2) SOB (shortness of breath): (3) COPD (chronic obstructive pulmonary disease) with emphysema: (4) Pulmonary hypertension: CT chest 05/26/2021 personally reviewed: Centrilobular and paraseptal emphysema appreciated bilaterally 11 mm left upper lobe pulmonary nodule, right upper lobe 17 mm pulmonary nodule, another 11 mm right upper lobe pulmonary nodule (Unchanged since January 2021) Bibasilar minimal interstitial thickening Cardiomegaly Minimal mediastinal adenopathy especially station 4R (Unchanged since January 2021) --Acute on chronic hypoxic respiratory failure Likely secondary to Combination of COPD as well as CHF BNP 5500 Procalcitonin negative COVID-19 PCR negative O2 supplementation to keep oxygen between 88-92% --Combined pulmonary fibrosis and emphysema On Symbicort and Spiriva as an outpatient Follows up with Dr. Whitt --Pulmonary hypertension Combination of type II and type III RVSP 44, mild reduced right ventricular systolic function --Multiple pulmonary nodules Unchanged since January 2021 Continue to monitor Plan: In/out: Negative rate 61, urine output 1331 Patient on 20 mg of Lasix today Continue with diuretics to keep the patient negative balance Add Incruse Change Solu-Medrol to 60 every 8 Recommend diuresis to keep the patient negative balance Consideration of adding azithromycin 250 mg Qasfkj-Adyqlprip-Fmmtvg prior to discharge Follow-up 2D echo Please note the above document was generated using voice recognition software. It may contain grammatical, syntax or spelling errors.Any formal questions or concerns about the content, text or information contained within the body of this dictation should be directly addressed to the provider for clarification. History of Present Illness Attending Physician: Joel Almeida MD History of Present Illness 86-year-old male past medical history of COPD on 3-5 L oxygen at home, combined pulmonary fibrosis and pulmonary emphysema, hypertension, CKD presented to the hospital with complaints of worsening shortness of breath Pulmonary consulted for the same Patient follows up with Dr. Whitt as an outpatient. Note reviewed Patient states that he has been feeling more short of breath since last couple of days prior to coming to the hospital He says right now is doing okay when he is not moving around but whenever he e xerts he gets short of breath Even on minimal exertion he gets short of breath Denies any chest pain, no dizziness, no palpitation He hardly brings up any phlegm. Denies any chest congestion. No hemoptysis, no night sweats, no weight loss. Has been afebrile. Social history: Greater than [id number] smoking history quit approximately 30 years ago Allergies Allergy/AdvReac Type Severity Reaction Status Date / Time No Known Allergies Allergy Verified 05/26/21 14:59 Home Medications Medication Instructions Recorded Confirmed Type aspirin 81 mg tablet,delayed 81 mg PO QAM 05/31/18 05/26/21 History release (Aspirin Low Dose) omega 4-noi-hti-fish oil 1,000 mg 1 cap PO QAM 05/31/18 05/26/21 History (120 mg-180 mg) capsule (Fish Oil) ipratropium 0.5 mg-albuterol 3 mg 3 ml INHALATION Q4H PRN #180 vial 09/18/20 05/26/21 Rx (2.5 mg base)/3 mL nebulization soln amlodipine 10 mg tablet 10 mg PO QAM 02/05/21 05/26/21 History morphine concentrate 100 mg/5 mL 5 mg PO Q6H PRN #30 ml 02/07/21 05/26/21 Rx (20 mg/mL) oral solution albuterol sulfate 90 mcg/actuation 2 - 4 puff INHALATION Q6H PRN #18 g 03/14/21 05/26/21 Rx aerosol inhaler budesonide-formoterol HFA 160 2 inh INH BID #10.2 g 04/25/21 05/26/21 Rx mcg-4.5 mcg/actuation aerosol inhaler (Symbicort) rollable table #1 ea 05/24/21 Rx tiotropium bromide 2.5 2 inh INHALATION QAM #4 g 05/24/21 05/26/21 Rx mcg/actuation mist for inhalation (Spiriva Respimat) Hospital Bed [facility] ([facility] ea 05/27/21 Rx Bed) hydroxyzine HCl 25 mg tablet 25 mg PO TID PRN #90 tab 05/27/21 Rx Patient History Medical History Abnormal albumin Acute on chronic respiratory failure with hypoxemia Bullous emphysema Cancer Carotid stenosis, left Cerebral infarction Chronic hypoxemic respiratory failure CKD (chronic kidney disease) COPD (chronic obstructive pulmonary disease) Fever Hypertension Idiopathic interstitial pneumonia Pulmonary emphysema Surgical History History of appendectomy History of cataract surgery History of hernia repair History of laparoscopic cholecystectomy History of tonsillectomy and adenoidectomy Family History Unknown Diabetes Mother Stroke syndrome Father Coronary arteriosclerosis Denies family history of Ovarian cancer Prostate cancer Myocardial infarction Breast cancer Colorectal cancer Social History Smoking Status: Former smoker Tobacco Type: Cigarettes Age Started Using Tobacco: 19; Age Quit Using Tobacco: 54; packs per day: 2; Second Hand Exposure: No; Do You Dip or Chew Tobacco: No; Hx Alcohol Use: No Hx Substance Use: No Preferred Language: Yi Communication Ability: Effective Visual Impairment: No Limitations Hearing Ability: Hard of Hearing Customer Support Analyst Required: No Beliefs That Will Affect Care: None marital status: Current Living Situation: Spouse current occupational status: retired 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 Other Information That Helps Us Care for You: No Feels Safe at Home: Yes Safety Concerns: Feels Safe At This Time Childhood Exposure to Second-Hand Smoke: Yes Dental Care, Regularly: Yes Physical Activity Frequency: Does not Exercise Seatbelt Use: always Sunscreen Use: No (does not go outside ) Assistive Devices: Oxygen - Continuous and Walker Review of Systems Review of Systems: All systems reviewed & are unremarkable except as noted in HPI & below Physical Exam Physical Exam: Constitutional: No acute distress HEENT: EOMI, PERRLA Respiratory system: Decreased air entry bilaterally, no rhonchi, positive crackles bilateral lower lobes more on the right side, mild expiratory wheeze CVS: S1-S2 positive, no murmurs or gallops Abdomen: Soft, nontender, nondistended, positive bowel sounds x4 Extremities: +2 pulses bilaterally radialis/ dorsalis pedis, no cyanosis, +1 pitting edema Neuro: Awake alert oriented x3 Psych: Normal mood and affect G/U: No Galeana Skin: no rashes, warm and dry Lymphatic: no cervical or axillary lymphadenopathy Results & Data Results & Data ([facility]) Vital Signs (Past 12 Hours) Vital Signs Temp Pulse Resp BP Pulse Ox 05/27/21 07:32 85 22 90 05/27/21 07:15 36.9 C 83 24 119/70 88 L 05/27/21 02:59 81 18 91 05/27/21 00:20 36.6 C 84 18 107/64 93 05/26/21 21:20 93 H 18 93 05/26/21 15:18 05/26/21 15:18 PG Care Time/CCT Total # of Minutes Spent Total Time Spent with Patient: Total time spent is greater than 50% in coordination of care (as documented) at patient's floor/unit and/or counseling patient: Coding Level of Care Code 30373 Initial Inpt Care Lvl 3 Diagnoses Acute and chronic respiratory failure with hypoxia J96.21 SOB (shortness of breath) R06.02 COPD (chronic obstructive pulmonary disease) with emphysema J43.9 Pulmonary hypertension I27.20
[2021-05-27] MEDS ORDERED: FLUTICASONE/VILANTEROL 100/25MCG 14 PUFFS/INHALER INH SCH (09:00)
[2021-05-27] MEDS: amLODIPine BESYLATE 5 MG TAB PO SCH (09:20)
[2021-05-27] MEDS: ASPIRIN 81 MG ECTAB PO SCH (09:20)
[2021-05-27] MEDS: OMEGA-3 (PURIFIED FISH OIL) 1 GM CAP PO SCH (09:21)
[2021-05-27] MEDS: methylPREDNISolone 40 MG in SYRINGE 0 ML IV SCH (09:21)
[2021-05-27] MEDS: ENOXAPARIN INJ 40 MG/0.4 ML SYR SQ SCH (09:21)
[2021-05-27] MEDS ORDERED: methylPREDNISolone 40 MG in SYRINGE 0 ML IV STA (09:42)
[2021-05-27] MEDS ORDERED: FUROSEMIDE 20 MG in SYRINGE 0 ML IV ONE (10:00)
[2021-05-27] MEDS: BUDESONIDE 0.5 MG/2 ML VIAL (PULMICORT) NEB SCH ×2 (10:45→19:49)
[2021-05-27] MEDS: FORMOTEROL 20 MCG/2 ML VIAL NEB SCH ×2 (10:46→19:49)
[2021-05-27] MEDS: UMECLIDINIUM BROMIDE 62.5MCG/BLISTER 7 PUFFS/INHALER INH SCH (12:00)
--- NOTE | 2021-05-27 12:31 | Hospitalist Progress Note ---
Date of Service May 27, 2021 Assessment & Plan (1) Acute and chronic respiratory failure with hypoxia: Plan: 86 y/o WM with COPD and IPF on chronic supplemental O2 (4L) chronically admitted with A/C Hypoxic respiratory failure-- currently requiring 10L - likely mixed picture-- AECOPD/pulm fibrosis with superimposed CHF (as BNP elevated at [address]) - continue IV steroids (uptitrated) along with aggressive pulmonary toilette (pulmicort/perforomist and routine duoneb). - In addition, continue gentle diuresis (Lasix 40mg given in ED with additional 20mg today) for goal fluid balance of -1L - continue supplemental Oe for goal pulse ox of 88-90% - ABG showing no evidence of acute hypercapnia - FU echo to be done - troponin was negative, no evidence of ACS - continue empiric abx therapy (azithromycin) - pulmonary on board-- appreciate recommendations - lengthy D/W patient regarding appropriateness for hospice care and he is agreeable (plan is for initiation upon d/). Although he is not actively dieing, he does have end of life qualifications with progressive end stage lung disease. This was D/W case mgmt. (2) IPF (idiopathic pulmonary fibrosis): Plan: - see above (3) COPD (chronic obstructive pulmonary disease) with emphysema: Plan: - see above. - pulm on board and has added incruse. (4) Hypertension: Plan: - continue Norvasc - hydralazine noted to be on home med list (PRN) and not continued here. Current BP stable at 119/70 (5) CKD (chronic kidney disease): Plan: - stable/at baseline (6) Cerebrovascular disease: Plan: - s/p old CVD without sequella - continue ASA Plan: - plan of care to be D/W Dr. Almeida. Further orders as warrented. Admission and Anticipated Discharge Date Admission Date: May 26, 2021 Subjective Patient seen on daily rounds today. He is an 86 y/o WM with a PMHx of COPD and Idopathic Pulmonary Fibrosis and is O2 dependent. Has been self titrating his O2 at home over the course of the past several weeks to the point that he was using both his concentrator and portable tank (4L/6L) but was still hypoxic (70's with little exertion--such as sitting up in bed) which prompted his evaluation into the ED. WBC was slightly elevated at 12.23 with a normal procalcitonin. CTA showed no evidence of PE but interstitial opacities which could be infectious pneumonitis vs PVC from CHF. His BNP was elevated at 5500 AB.42/36/ Currently on 10L oxymask to keep his pulse ox in the low 90's On routine Duoneb along with empiric abx therapy (azithromycin) and IV steroids. When seen this am, his steroids increased slightly and his BreoEllipta changed to Pulmicort/perforomist. Given lasix 40mg in the ED. I ordered an additional 20mg to be given this am. Pulmonary on board. Review of Systems 2 Review of Systems: All systems reviewed and are unremarkable except as noted in HPI and below Denies fevers, chills, headache, nasal congestion, sore throat, cough, chest pain, shortness of breath, palpitations, orthopnea, PND, abdominal pain, nausea, vomiting, diarrhea, constipation, dysuria, hematuria, frequency, back pain, joint pain or swelling, easy bruising or blooding, skin lesions or rashes. Physical Exam Physical Exam: General: Resting comfortably in his hospital bed. Appears chronically but not acutely ill HEENT: Head is AT/NC buccal mucosa is moist and pink Neck: No JVD. Negative hepatojugular reflex Cardiac: RRR but distant heart sounds Lungs: Mild conversational dyspnea on 10 L oxygen mask. Very diminished breath sounds throughoutpoor air exchange with bibasilar crackles Abdomen: Normoactive X4. Soft and nontender in all quadrants. Extremities: No peripheral clubbing cyanosis or edema Neuro: A&O X4 cranial nerves II through XII are grossly intact no focal neuro deficits Skin: No obvious skin lesions or rashes Psych: Appropriate affect pleasant and cooperative Results & Data Results & Data ([facility]) Vital Signs (Past 12 Hours) Vital Signs Temp Pulse Resp BP Pulse Ox 05/27/21 10:47 83 18 93 05/27/21 07:32 85 22 90 05/27/21 07:15 36.9 C 83 24 119/70 88 L 05/27/21 02:59 81 18 91 Laboratory Results 05/26/21 15:18 05/26/21 15:18 TB: 1.2 AST: 22 ALT: 27 PG Care Time/CCT Total # of Minutes Spent Total Time Spent with Patient: Total time spent is greater than 50% in coordination of care (as documented) at patient's floor/unit and/or counseling patient: Coding [place] [address] Subseq Hosp Care Lvl 2 Patient Type Established History Expanded Problem Focused Exam Expanded Problem Focused Medical Decision Making Moderate Complexity Diagnoses Acute and chronic respiratory failure with hypoxia J96.21 IPF (idiopathic pulmonary fibrosis) J84.112 COPD (chronic obstructive pulmonary disease) with emphysema J43.9 Hypertension I10 CKD (chronic kidney disease) N18.9 Cerebrovascular disease I67.9
--- NOTE | 2021-05-27 15:32 | Electrocardiogram Report ---
Test Reason : Blood Pressure : / mmHG Vent. Rate : 088 BPM Atrial Rate : 088 BPM P-R Int : 240 ms QRS Dur : 094 ms QT Int : 366 ms P-R-T Axes : 066 015 086 degrees QTc Int : 442 ms Sinus rhythm with 1st degree A-V block Premature atrial complexes Nonspecific T wave abnormality Abnormal ECG When compared with ECG of 05-FEB-2021 08:15, Nonspecific T wave abnormality is now Present Confirmed by Jimmie Rogel ([id number]) on 05/27/2021 3:32:18 PM Referred By: Tony Whitt Confirmed By:Jimmie Rogel
--- NOTE | 2021-05-27 16:07 | XCELERA ---
[id number]
[2021-05-27] MEDS ORDERED: methylPREDNISolone 80 MG in SYRINGE 0 ML IV SCH (21:00)
[2021-05-27] MEDS: methylPREDNISolone 60 MG in SYRINGE 0 ML IV SCH (21:11)
[2021-05-27] MEDS: AZITHROMYCIN 250 MG TAB PO SCH (21:11)
[2021-05-28] MEDS: ALBUT/IPRATROP 3MG/0.5MG NEB 3 ML VIAL NEB SCH ×6 (02:56→23:43)
[2021-05-28] MEDS: methylPREDNISolone 60 MG in SYRINGE 0 ML IV SCH ×2 (05:19→16:14)
[2021-05-28 07:03] LABS: BUN Creatinine Ratio 21.8 (10-20); Calcium 9.2 mg/dl (8.5-10.1); Creatinine Clr Calc Pharmacy 35.6 ml/min; Est GFR (Non-African American) 40.6 ml/min; Magnesium 2.5 mg/dl (1.8-2.4); Potassium 4.1 mmol/L (3.5-5.1)
[2021-05-28] MEDS: BUDESONIDE 0.5 MG/2 ML VIAL (PULMICORT) NEB SCH ×2 (07:23→19:14)
[2021-05-28] MEDS: FORMOTEROL 20 MCG/2 ML VIAL NEB SCH ×2 (07:23→19:14)
[2021-05-28 09:15] LABS: Immature Granulocytes # (auto) 0.02 K/uL (0.00-0.02); Immature Granulocytes % (auto) 0.2 %; Lymphocytes # (auto) 0.92 K/uL (1.2-3.4); Lymphocytes % (auto) 7.3 %; Mean Corpuscular Hemoglobin 30.8 pg (25-34); Mean Corpuscular Hgb Conc 33.3 g/dL (32-36); Mean Corpuscular Volume 92.4 fL (80-100); Mean Platelet Volume 10.7 fL (7.4-10.4); Monocytes % (auto) 3.2 %; Neutrophils # (auto) 11.21 K/uL (1.4-6.5); Neutrophils % (auto) 89.3 %; Platelet Count 318 K/uL (130-400); RDW Standard Deviation 47.5 fL (36.4-46.3); Red Blood Count 4.22 M/uL (4.7-6.1); White Blood Count 12.55 K/uL (4.8-10.8)
[2021-05-28] MEDS: ASPIRIN 81 MG ECTAB PO SCH (10:24)
[2021-05-28] MEDS: amLODIPine BESYLATE 5 MG TAB PO SCH (10:25)
[2021-05-28] MEDS: OMEGA-3 (PURIFIED FISH OIL) 1 GM CAP PO SCH (10:25)
[2021-05-28] MEDS: UMECLIDINIUM BROMIDE 62.5MCG/BLISTER 7 PUFFS/INHALER INH SCH (10:26)
[2021-05-28] MEDS: ENOXAPARIN INJ 40 MG/0.4 ML SYR SQ SCH (10:26)
[2021-05-28] MEDS ORDERED: FUROSEMIDE 20 MG in SYRINGE 0 ML IV ONE (13:00)
--- NOTE | 2021-05-28 14:11 | Hospitalist Progress Note ---
Date of Service May 28, 2021 Assessment & Plan (1) Acute and chronic respiratory failure with hypoxia: Plan: 86 y/o WM with COPD and IPF on chronic supplemental O2 (4L) chronically admitted with A/C Hypoxic respiratory failure-- currently requiring 10L - likely mixed picture-- AECOPD/pulm fibrosis with superimposed CHF (as BNP elevated at [address] on [address]) -Echocardiogram with mildly redused systolic function/EF of 55 to 60% and grade 1 diastolic dysfunction. Right-sided dilation consistent with end-stage lung disease. Echocardiogram: Normal LV size and systolic function. EF 55 to 60%. No regional wall motion abnormalities. Mild concentric left ventricular hypertrophy Mildly dilated right ventricle with mildly reduced systolic function Severe right atrial dilation Mild mitral regurgitation Mild pulmonary hypertension with estimated RVSP of 44 mmHg Compared to prior study (2018)right ventricular now appears to be more dilated with reduced systolic function - continue IV steroids (changed to 60mg IV q6h by pulmonology) along with aggressive pulmonary toilette (pulmicort/perforomist and routine duoneb). - In addition, continue gentle diuresis (additional lasix today) for goal fluid balance of -1L - continue supplemental O2 for goal pulse ox of 88-90% - ABG showing no evidence of acute hypercapnia - troponin was negative, no evidence of ACS - continue empiric abx therapy (azithromycin); however, no significant concern for infectious process - pulmonary on board-- appreciate recommendations - lengthy D/W patient regarding appropriateness for hospice care given end-stage lung disease. He is requiring increased supplemental oxygen at this point and if this remains, would need Oxymizer arranged. He is well aware of his end- stage lung disease and wants no heroic measures. Aware that options are limited at best and that his lung disease is progressive. He is agreeable to see palliative care at this time. -His big concern at this time is being "a burden to his ". He is well aware that he has been declining from a respiratory standpoint and believes he requires too much care than what she can provide. Patient gets extremely dyspneic with very limited exertion. That being said, he is rather independent and I am not sure that he meets any criteria for acute rehab but would rather need a long-term care. Will consult case management but it may be that patient transitions to long-term care as an outpatient. Will consult PT/OTappreciate their recommendations. -He has asked for me to touch base with his . I have tried multiple times both yesterday and today and have been unsuccessful. I have left messages. (2) IPF (idiopathic pulmonary fibrosis): Plan: - see above (3) COPD (chronic obstructive pulmonary disease) with emphysema: Plan: - see above. - pulm on board and has added incruse. (4) Hypertension: Plan: - continue Norvasc - hydralazine noted to be on home med list (PRN) and not continued here. Current BP stable/ well controlled (5) CKD (chronic kidney disease): Plan: - stable/at baseline (6) Cerebrovascular disease: Plan: - s/p old CVD without sequella - continue ASA Plan: - plan of care to be D/W Dr. Almeida. Further orders as warranted. - will also touch base with palliative care - again, I have treid calling 3x over the past 24 hours without success. Message left. Will keep trying Admission and Anticipated Discharge Date Admission Date: May 26, 2021 Subjective Seen on daily rounds today. Overall, reports that his breathing has improved at rest. Still gets very winded with limited exertion such as toileting or even sitting at the bedside. Currently requiring anywhere between 8 and 10 L of supplemental oxygen to keep his pulse ox in the low 90s. Given 20 mg of IV Lasix yesterday. Fluid balance -871L Echocardiogram was completed showing preserved EF with mild grade 1 diastolic dysfunction and right-sided dilationsee full results as outlined below Patient has made multiple requests for [facility] facility. [facility] but has been [facility] to do so. He feels that he is generally declined from a respiratory standpoint and is "too much for his to take care of". Currently, he denies fevers, chills, chest pain, shortness of breath at rest, orthopnea, PND, cough, abdominal pain, nausea, vomiting, GI/ symptomatology. Review of Systems Review of Systems: All systems reviewed and are unremarkable except as noted in HPI and below + dyspnea with very limited exertion. Otherwise, denies fevers, chills, headache, nasal congestion, sore throat, cough, chest pain, shortness of breath at rest, palpitations, orthopnea, PND, abdominal pain, nausea, vomiting, diarrhea, constipation, dysuria, hematuria, frequency, back pain, joint pain or swelling, easy bruising or blooding, skin lesions or rashes. Physical Exam Physical Exam: General: Resting comfortably in his hospital bed. NAD. HEENT: Head is AT/NC buccal mucosa is moist and pink Neck: No JVD. Negative hepatojugular reflex Cardiac: RRR but distant heart sounds Lungs: Speaking full sentences on supplemental oxygen. No accessory muscle use or labored breathing. Seems to be able to lean forward without getting overtly dyspneic. Diminished breath sounds throughout but overall improved air exchange in comparison to yesterday. Bibasilar crackles resolved. No wheezing today. Abdomen: Normoactive X4. Soft and nontender in all quadrants. Extremities: No peripheral clubbing cyanosis or edema Neuro: A&O X4 cranial nerves II through XII are grossly intact no focal neuro deficits Skin: No obvious skin lesions or rashes Psych: Appropriate affect pleasant and cooperative Results & Data Results & Data ([facility]) Vital Signs (Past 12 Hours) Vital Signs Temp Pulse Resp BP Pulse Ox 05/28/21 11:04 81 20 91 05/28/21 07:30 36.5 C 79 18 116/67 95 05/28/21 07:23 81 20 93 05/28/21 02:57 76 22 93 Laboratory Results 05/28/21 05:57 05/28/21 05:50 PG Care Time/CCT Total # of Minutes Spent Total Time Spent with Patient: Total time spent is greater than 50% in coordination of care (as documented) at patient's floor/unit and/or counseling patient: C[place] [address] Subseq Hosp Care Lvl 2 Patient Type Established History Expanded Problem Focused Exam Expanded Problem Focused Medical Decision Making Moderate Complexity Diagnoses Acute and chronic respiratory failure with hypoxia J96.21 IPF (idiopathic pulmonary fibrosis) J84.112 COPD (chronic obstructive pulmonary disease) with emphysema J43.9 Hypertension I10 CKD (chronic kidney disease) N18.9 Cerebrovascular disease I67.9
--- NOTE | 2021-05-28 15:48 | Pulmonology Progress Note ---
Date of Service May 28, 2021 Assessment & Plan (1) Acute and chronic respiratory failure with hypoxia: (2) SOB (shortness of breath): (3) COPD (chronic obstructive pulmonary disease) with emphysema: (4) Pulmonary hypertension: Plan: CT chest 05/26/2021 personally reviewed: Centrilobular and paraseptal emphysema appreciated bilaterally 11 mm left upper lobe pulmonary nodule, right upper lobe 17 mm pulmonary nodule, another 11 mm right upper lobe pulmonary nodule (Unchanged since January 2021) Bibasilar minimal interstitial thickening Cardiomegaly Minimal mediastinal adenopathy especially station 4R (Unchanged since January 2021) --Acute on chronic hypoxic respiratory failure Likely secondary to Combination of COPD as well as CHF BNP 5500 Procalcitonin negative COVID-19 PCR negative O2 supplementation to keep oxygen between 88-92% --Combined pulmonary fibrosis and emphysema On Symbicort and Spiriva as an outpatient Follows up with Dr. Whitt --Pulmonary hypertension Combination of type II and type III RVSP 44, mild reduced right ventricular systolic function --Multiple pulmonary nodules Unchanged since January 2021 Continue to monitor Plan: In/out: -1126 There is a bump in patient's creatinine. Hold diuretics for the time being. We will titrate down Solu-Medrol to 40 mg every 8. Continue with flutter valve Please note the above document was generated using voice recognition software. It may contain grammatical, syntax or spelling errors.Any formal questions or concerns about the content, text or information contained within the body of this dictation should be directly addressed to the provider for clarification. Admission and Anticipated Discharge Date Admission Date: May 26, 2021 Subjective Patient seen and examined at bedside. No acute distress, no adverse events overnight. Patient stated he is feeling better compared to when he came to the hospital. He was saturating 90% on 9 L nasal cannula. There is improvement as he was yesterday on 12 L He has been using incentive spirometry. We will get him flutter valve as well Denies any chest pain Review of Systems Review of Systems: All systems reviewed & are unremarkable except as noted in Subjective Physical Exam Physical Exam: Constitutional: No acute distress HEENT: EOMI, PERRLA Respiratory system: Decreased air entry bilaterally, no rhonchi, positive crackles bilateral lower lobes more on the right side, no wheeze CVS: S1-S2 positive, no murmurs or gallops Abdomen: Soft, nontender, nondistended, positive bowel sounds x4 Extremities: +2 pulses bilaterally radialis/ dorsalis pedis, no cyanosis, +1 pitting edema Neuro: Awake alert oriented x3 Psych: Normal mood and affect G/U: No Galeana Skin: no rashes, warm and dry Lymphatic: no cervical or axillary lymphadenopathy Results & Data Results & Data ([facility]) Vital Signs (Past 12 Hours) Vital Signs Temp Pulse Resp BP Pulse Ox 05/28/21 15:29 82 18 90 05/28/21 11:04 81 20 91 05/28/21 07:30 36.5 C 79 18 116/67 95 05/28/21 07:23 81 20 93 05/28/21 05:57 05/28/21 05:50 PG Care Time/CCT Total # of Minutes Spent Total Time Spent with Patient: Total time spent is greater than 50% in coordination of care (as documented) at patient's floor/unit and/or counseling patient: Coding Level of Care Code 65819 Subseq Hosp Care Lvl 3 Diagnoses Acute and chronic respiratory failure with hypoxia J96.21 SOB (shortness of breath) R06.02 COPD (chronic obstructive pulmonary disease) with emphysema J43.9 Pulmonary hypertension I27.20
[2021-05-28] MEDS: methylPREDNISolone 40 MG in SYRINGE 0 ML IV SCH (19:58)
[2021-05-28] MEDS: AZITHROMYCIN 250 MG TAB PO SCH (19:58)
[2021-05-28] MEDS: LORazepam 0.5 MG TAB PO PRN (22:14)
[2021-05-29] MEDS: ALBUT/IPRATROP 3MG/0.5MG NEB 3 ML VIAL NEB SCH ×6 (02:11→22:48)
[2021-05-29] MEDS: methylPREDNISolone 40 MG in SYRINGE 0 ML IV SCH ×2 (05:27→20:21)
[2021-05-29 06:11] LABS: Hematocrit (blood only) 42.3 % (42-52); Immature Granulocytes # (auto) 0.04 K/uL (0.00-0.02); Immature Granulocytes % (auto) 0.3 %; Lymphocytes # (auto) 0.75 K/uL (1.2-3.4); Lymphocytes % (auto) 6.2 %; Mean Corpuscular Hemoglobin 30.6 pg (25-34); Mean Corpuscular Hgb Conc 33.1 g/dL (32-36); Mean Corpuscular Volume 92.6 fL (80-100); Mean Platelet Volume 10.2 fL (7.4-10.4); Monocytes # (auto) 0.54 K/uL (0.11-0.59); Monocytes % (auto) 4.5 %; Neutrophils # (auto) 10.71 K/uL (1.4-6.5); Platelet Count 322 K/uL (130-400); RDW Coefficient of Variation 13.9 % (11.5-14.5); RDW Standard Deviation 46.9 fL (36.4-46.3); Red Blood Count 4.57 M/uL (4.7-6.1); White Blood Count 12.04 K/uL (4.8-10.8)
[2021-05-29] MEDS: BUDESONIDE 0.5 MG/2 ML VIAL (PULMICORT) NEB SCH ×2 (07:13→19:04)
[2021-05-29] MEDS: FORMOTEROL 20 MCG/2 ML VIAL NEB SCH ×2 (07:14→19:04)
--- NOTE | 2021-05-29 08:05 | XRay Report ---
XR chest 1V portable HISTORY: 86 years-old Male post diuresis acute chest pain with shortness of breath COMPARISON: Chest radiograph and CTA chest 05/26/2021 TECHNIQUE: Portable AP view of the chest FINDINGS: Cardiac silhouette is enlarged. Emphysema with chronic fibrotic changes. No pneumothorax, large pleur al effusion or overt pulmonary edema. No lobar airspace consolidation. Degenerative changes of the sh oulders and spine. IMPRESSION: 1. Cardiomegaly without overt pulmonary edema. 2. Emphysema with chronic fibrotic changes. ACT 112: Negative or not required by law. The above report was generated using voice recognition software. It may contain grammatical, syntax o r spelling errors. Electronically signed by: Destin Gr M.D. 05/29/2021 8:03 AM
--- NOTE | 2021-05-29 08:43 | Palliative Care Consultation ---
Date of Consultation May 29, 2021 Assessment & Plan (1) Palliative care encounter: Mr. Castillo is an 86 year old male who presented to the [facility] with hypoxia. He has COPD and IPF (idiopathic pulmonary fibrosis) that requires 4LNC supplemental oxygen at baseline at home and has had some exacerbations of his illness. He does follow Pulmonary outpatient where he receives most of his inhaler medication management from. In reviewing notes from his pulmonary visits, he has numerous lung nodules that have been followed closely on C; locations include 15 mm R apical, 8 mm L apical and some smaller other locations. Additional PMH includes HLD and HTN. This admission, he has required more oxygen, currently at 9L via oxymask. His , Rona, has expressed that his care needs are becoming increasingly harder at home and she has looked into hospice services. Palliative Medicine was consulted to discuss overall goals of care. I met with Mr. Castillo and he was sitting in his bed in no apparent distress. His oxygen has been weaned to 7L on oxymask. He did discuss that he has multiple concentrators at home and, at times, combines them for maximized use, up to 10L through each nasal cannula. He said that at rest he requires 4-5 L. When he goes to the bathroom, he requires up to 10L. He confirmed that he would firmly not want intubation nor CPR efforts taken in the event of cardiac or respiratory arrest. Confirmed DNR/DNI. He stated that he does not have any children but his has a daughter who lives in [place] that is on her way to [place] for a visit. He has stated that he would like to return home and is receptive to hospice services to help support him and his . His , is using a walker, but he is able to relatively do his own ADL's. For now, case management is assisting with disposition, but returning home with hospice support would be supported. Thanks for involving Palliative Medicine with this individual. (2) Hypoxia: Currently SpO2 89% on 7L oxymask. I feel this is close to his baseline level of oxygenation. Patient may benefit from PRN Roxanol when he does have exacerbation moving forward to maximize his quality of life. History of Present Illness Reason for Consultation: goals of care Requesting Physician: Destini Mensah PA-C Attending Physician: Joel Almeida MD History of Present Illness Mr. Castillo is an 86 year old male who presented to the [facility] with hypoxia. He has COPD and IPF (idiopathic pulmonary fibrosis) that requires 4LNC supplemental oxygen at baseline at home and has had some exacerbations of his illness. He does follow Pulmonary outpatient where he receives most of his inhaler medication management from. In reviewing notes from his pulmonary visits, he has numerous lung nodules that have been followed closely on C; locations include 15 mm R apical, 8 mm L apical and some smaller other locations. Additional PMH includes HLD and HTN. This admission, he has required more oxygen, currently at 9L via oxymask. His , Rona, has expressed that his care needs are becoming increasingly harder at home and she has looked into hospice services. Palliative Medicine was consulted to discuss overall goals of care. Please see A/P for further details. Thanks for involving Palliative Medicine with this individual. Allergies Allergy/AdvReac Type Severity Reaction Status Date / Time No Known Allergies Allergy Verified 05/26/21 14:59 Home Medications Medication Instructions Recorded Confirmed Type aspirin 81 mg tablet,delayed 81 mg PO QAM 05/31/18 05/26/21 History release (Aspirin Low Dose) omega 8-tek-eqx-fish oil 1,000 mg 1 cap PO QAM 05/31/18 05/26/21 History (120 mg-180 mg) capsule (Fish Oil) ipratropium 0.5 mg-albuterol 3 mg 3 ml INHALATION Q4H PRN #180 vial 09/18/20 05/26/21 Rx (2.5 mg base)/3 mL nebulization soln amlodipine 10 mg tablet 10 mg PO QAM 02/05/21 05/26/21 History morphine concentrate 100 mg/5 mL 5 mg PO Q6H PRN #30 ml 02/07/21 05/26/21 Rx (20 mg/mL) oral solution albuterol sulfate 90 mcg/actuation 2 - 4 puff INHALATION Q6H PRN #18 g 03/14/21 05/26/21 Rx aerosol inhaler budesonide-formoterol HFA 160 2 inh INH BID #10.2 g 04/25/21 05/26/21 Rx mcg-4.5 mcg/actuation aerosol inhaler (Symbicort) rollable table #1 ea 05/24/21 Rx tiotropium bromide 2.5 2 inh INHALATION QAM #4 g 05/24/21 05/26/21 Rx mcg/actuation mist for inhalation (Spiriva Respimat) hydroxyzine HCl 25 mg tablet 25 mg PO TID PRN #90 tab 05/27/21 Rx Hospital Bed [facility] (Hospital [facility]1 ea 05/28/21 Rx Bed) Patient History Medical History Abnormal albumin Acute on chronic respiratory failure with hypoxemia Bullous emphysema Cancer Carotid stenosis, left Cerebral infarction Chronic hypoxemic respiratory failure CKD (chronic kidney disease) COPD (chronic obstructive pulmonary disease) Fever Hypertension Hypoxia Idiopathic interstitial pneumonia Palliative care encounter Pulmonary emphysema Surgical History History of appendectomy History of cataract surgery History of hernia repair History of laparoscopic cholecystectomy History of tonsillectomy and adenoidectomy Family History Unknown Diabetes Mother Stroke syndrome Father Coronary arteriosclerosis Denies family history of Ovarian cancer Prostate cancer Myocardial infarction Breast cancer Colorectal cancer Social History Smoking Status: Former smoker Tobacco Type: Cigarettes Age Started Using Tobacco: 19; Age Quit Using Tobacco: 54; packs per day: 2; Second Hand Exposure: No; Do You Dip or Chew Tobacco: No; Hx Alcohol Use: No Hx Substance Use: No Preferred Language: Spanish Communication Ability: Effective Visual Impairment: No Limitations Hearing Ability: Hard of Hearing Sterilization Technician Required: No Beliefs That Will Affect Care: None marital status: Current Living Situation: Spouse current occupational status: retired 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 Other Information That Helps Us Care for You: No Feels Safe at Home: Yes Safety Concerns: Feels Safe At This Time Childhood Exposure to Second-Hand Smoke: Yes Dental Care, Regularly: Yes Physical Activity Frequency: Does not Exercise Seatbelt Use: always Sunscreen Use: No (does not go outside ) Assistive Devices: Glasses, Oxygen - Continuous and Walker Review of Systems Review of Systems: [place] System Assessment Scale: Pain: 0/3 SOB: 2/3 Anxiety: 1/3 Lack of Appetite: 1/3 Palliative Performance Scale: 40% Physical Exam Constitutional: well developed, + frail appearing, cooperative and comfortable Respiratory: + cough; no labored breathing Auscultation: + diminished lung sounds and + rhonchi Cardiovascular: Rate/Rhythm: regular rate and regular rhythm Heart Sounds: normal S1 and normal S2 Extremities: normal capillary refill; no edema Gastrointestinal (Abdomen): Inspection/Auscultation: abdomen normal to inspection Percussion/Palpation: abdomen soft Skin: normal turgor and + pallor Psychiatric: Orientation: alert and oriented x 3 Insight: good insight Judgement: good judgement Results & Data ([facility]) Vital Signs (Past 12 Hours) Vital Signs Temp Pulse Resp BP Pulse Ox 05/29/21 08:33 91 05/29/21 08:02 36.6 C 73 18 117/69 93 05/29/21 07:18 99 H 22 96 05/29/21 02:15 72 24 93 05/29/21 00:58 96 05/28/21 23:43 74 18 64 L 05/28/21 22:14 36.5 C 77 20 123/68 89 L PG Care Time/CCT Total # of Minutes Spent Total Time Spent with Patient: Total time spent is greater than 50% in coordination of care (as documented) at patient's floor/unit and/or counseling patient: 70 minutes with > 50 % of that time spent assessing the patient, discussing goals of care, addressing symptom management and collaborating with IDT Coding Level of Care Code 12095 Inpt Consult Level 3 Diagnoses Palliative care encounter Z51.5 Hypoxia R09.02 Time Spent (min) 70
[2021-05-29] MEDS: UMECLIDINIUM BROMIDE 62.5MCG/BLISTER 7 PUFFS/INHALER INH SCH (08:46)
[2021-05-29] MEDS: ASPIRIN 81 MG ECTAB PO SCH (08:47)
[2021-05-29] MEDS: ENOXAPARIN INJ 40 MG/0.4 ML SYR SQ SCH (08:47)
[2021-05-29] MEDS: OMEGA-3 (PURIFIED FISH OIL) 1 GM CAP PO SCH (08:47)
[2021-05-29] MEDS: amLODIPine BESYLATE 5 MG TAB PO SCH (08:47)
[2021-05-29] MEDS: TAMSULOSIN HCL 0.4 MG CAP PO SCH ×2 (09:55→20:19)
--- NOTE | 2021-05-29 12:29 | Pulmonology Progress Note ---
Date of Service May 29, 2021 Assessment & Plan (1) Acute and chronic respiratory failure with hypoxia: (2) SOB (shortness of breath): (3) COPD (chronic obstructive pulmonary disease) with emphysema: (4) Pulmonary hypertension: Plan: CT chest 05/26/2021 personally reviewed: Centrilobular and paraseptal emphysema appreciated bilaterally 11 mm left upper lobe pulmonary nodule, right upper lobe 17 mm pulmonary nodule, another 11 mm right upper lobe pulmonary nodule (Unchanged since January 2021) Bibasilar minimal interstitial thickening Cardiomegaly Minimal mediastinal adenopathy especially station 4R (Unchanged since January 2021) --Acute on chronic hypoxic respiratory failure Likely secondary to Combination of COPD as well as CHF BNP 5500 Procalcitonin negative COVID-19 PCR negative O2 supplementation to keep oxygen between 88-92% --Combined pulmonary fibrosis and emphysema On Symbicort and Spiriva as an outpatient Follows up with Dr. Whitt --Pulmonary hypertension Combination of type II and type III RVSP 44, mild reduced right ventricular systolic function --Multiple pulmonary nodules Unchanged since January 2021 Continue to monitor Plan: Patient clinically doing better from pulmonary perspective. Is making good amount of urine Go down on Solu-Medrol to 40 mg every 12 The next 24-48 hours will recommend to transition to p.o. prednisone 40 mg for 4 days followed by 20 mg for 4 days I do think patient will benefit from pulmonary rehab. No further recommendation from pulmonary perspective. Will sign off Please call directly with any questions. Please note the above document was generated using voice recognition software. It may contain grammatical, syntax or spelling errors.Any formal questions or concerns about the content, text or information contained within the body of this dictation should be directly addressed to the provider for clarification. Admission and Anticipated Discharge Date Admission Date: May 26, 2021 Subjective Patient seen and examined at bedside. No acute distress, no adverse events overnight. Patient was saturating 93-94% on 7 L facemask at the time of examination He says that he is feeling better. He was sitting on the chair. Denies any chest pain Fair appetite No nausea vomiting Review of Systems Review of Systems: All systems reviewed & are unremarkable except as noted in Subjective Physical Exam Physical Exam: Constitutional: No acute distress HEENT: EOMI, PERRLA Respiratory system: Decreased air entry bilaterally, no rhonchi, positive crackles bilateral lower lobes more on the right side, no wheeze CVS: S1-S2 positive, no murmurs or gallops Abdomen: Soft, nontender, nondistended, positive bowel sounds x4 Extremities: +2 pulses bilaterally radialis/ dorsalis pedis, no cyanosis, +1 pitting edema Neuro: Awake alert oriented x3 Psych: Normal mood and affect G/U: No Galeana Skin: no rashes, warm and dry Lymphatic: no cervical or axillary lymphadenopathy Results & Data Results & Data ([facility] [place]) Vital Signs (Past 12 Hours) Vital Signs Temp Pulse Resp BP Pulse Ox 05/29/21 11:12 80 20 91 05/29/21 09:13 89 L 05/29/21 08:33 91 05/29/21 08:02 36.6 C 73 18 117/69 93 05/29/21 07:18 99 H 22 96 05/29/21 02:15 72 24 93 05/29/21 00:58 96 05/29/21 05:53 05/28/21 05:50 PG Care Time/CCT Total # of Minutes Spent Total Time Spent with Patient: Total time spent is greater than 50% in coordination of care (as documented) at patient's floor/unit and/or counseling patient: Coding Level of Care Code 62161 Subseq Hosp Care Lvl 3 Diagnoses Acute and chronic respiratory failure with hypoxia J96.21 SOB (shortness of breath) R06.02 COPD (chronic obstructive pulmonary disease) with emphysema J43.9 Pulmonary hypertension I27.20
--- NOTE | 2021-05-29 14:33 | Hospitalist Progress Note ---
Date of Service May 29, 2021 Assessment & Plan (1) Acute and chronic respiratory failure with hypoxia: Plan: 86 y/o WM with COPD and IPF on chronic supplemental O2 (4L) chronically admitted with A/C Hypoxic respiratory failure. Initially requiring 14 L upon admission. Currently down to 7L - likely mixed picture-- AECOPD/pulm fibrosis with superimposed CHF (as BNP elevated at [address]) - Echocardiogram with mildly redused systolic function/EF of 55 to 60% and grade 1 diastolic dysfunction. Right-sided dilation consistent with end-stage lung disease. Echocardiogram: Normal LV size and systolic function. EF 55 to 60%. No regional wall motion abnormalities. Mild concentric left ventricular hypertrophy Mildly dilated right ventricle with mildly reduced systolic function Severe right atrial dilation Mild mitral regurgitation Mild pulmonary hypertension with estimated RVSP of 44 mmHg Compared to prior study (2018)right ventricular now appears to be more dilated with reduced systolic function - Remains on IV steroids with down titration per pulmonology along with aggressive pulmonary toilet - In addition, has had has responded favorably to multiple doses of IV Lasix. Slight increase in creatinine but not far from baseline - continue supplemental O2 for goal pulse ox of 88-90% - ABG showing no evidence of acute hypercapnia - troponin was negative, no evidence of ACS - continue empiric abx therapy (azithromycin); however, no significant concern for infectious process - pulmonary on board-- appreciate recommendations - lengthy D/W patient regarding during this hospitalization regarding appropriateness for hospice care given end-stage lung disease. Seen by Palliative care-- appreciate recommendations - He is requiring increased supplemental oxygen at this point and if this remains, would need Oxymizer arranged. He is well aware of his end-stage lung disease and wants no heroic measures. Aware that options are limited at best and that his lung disease is progressive. He is agreeable to see palliative care at this time. -His big concern at this time is being "a burden to his ". He is well aware that he has been declining from a respiratory standpoint and believes he requires too much care than what she can provide. Patient gets extremely dyspneic with very limited exertion. That being said, he is rather independent and he does not meet any criteria for acute rehab but would rather need a long- term care. Case mgmt on board but would be more appropraite to transition to long-term care as an outpatient. Did discuss this with his and encouraged that she reach out to patient's PCP to get the MA-51 started. - attempted to call twice today without success (2) Urinary retention: Plan: -I suspect this is likely multifactorial. With his agelikely has underlying BPH. In addition, he now has been started on anticholinergic medications which are likely contributing to urinary retention/trouble voiding -I have started him on Flomax (twice daily X 7 days then once a day) -nursing staff encouraged that if patient does have the urge to urinate, to have him stand rather than sit to use the urinal as this may help with voiding -if patient has the urge to urinate and cannot or the patient has not urinated by 5 PM, I have encouraged staff to obtain a bladder scan. If greater/equal [address] indwelling Galeana catheter with plan to discharge bladder training and follow-up to see urology as an outpatient (3) IPF (idiopathic pulmonary fibrosis): Plan: - see above (4) COPD (chronic obstructive pulmonary disease) with emphysema: Plan: - see above. - pulm on board and has added incruse. (5) Hypertension: Plan: - continue Norvasc - hydralazine noted to be on home med list (PRN) and not continued here. Current BP stable/ well controlled (6) CKD (chronic kidney disease): Plan: - stable/at baseline (7) Cerebrovascular disease: Plan: - s/p old CVD without sequella - continue ASA Plan: - plan of care to be D/W Dr. Almeida. Further orders as warranted. - again, I have treid calling 2x over today without success. Message left. Will keep trying Admission and Anticipated Discharge Date Admission Date: May 26, 2021 Subjective Patient seen on daily rounds today. Vocalizes no significant complaints or concerns. Believes his breathing is close to baseline. Still getting winded and requiring increased oxygenation with limited exertion such as toileting but reading comfortably at rest. Seen by palliative yesterday and patient is agreeable to initiation of hospice upon discharge Spoke with both patient and his regarding his wishes for placement. Explained that patient would not qualify for acute rehab. His end-stage lung disease does limit his physical ability. He is not appropriate for short-term rehab as he is not rehab level. This is his baseline. The big issue today is patient's having difficulty urinating. Had the urge to urinate twice overnight but was unable to go. Tried urinating from a seated position. Required straight cath X2. Has not yet urinated this morning. Review of Systems Review of Systems: All systems reviewed and are unremarkable except as noted in HPI and below + Retention. Otherwise, denies fevers, chills, headache, nasal congestion, sore throat, cough, chest pain, shortness of breath, palpitations, orthopnea, PND, abdominal pain, nausea, vomiting, diarrhea, constipation, dysuria, hematuria, frequency, back pain, joint pain or swelling, easy bruising or blooding, skin lesions or rashes. Physical Exam Physical Exam: General: Resting comfortably in his hospital bed. NAD. HEENT: Head is AT/NC buccal mucosa is moist and pink Neck: No JVD. Negative hepatojugular reflex Cardiac: RRR but distant heart sounds Lungs: Speaking full sentences on supplemental oxygen. No accessory muscle use. Does have increased air exchange throughout with end expiratory wheezes predominantly at the bases Abdomen: Normoactive X4. Soft and nontender in all quadrants. Extremities: No peripheral clubbing cyanosis or edema Neuro: A&O X4 cranial nerves II through XII are grossly intact no focal neuro deficits Skin: No obvious skin lesions or rashes Psych: Appropriate affect pleasant and cooperative Results & Data Results & Data ([facility]) Vital Signs (Past 12 Hours) Vital Signs Temp Pulse Resp BP Pulse Ox 05/29/21 11:12 80 20 91 05/29/21 09:13 89 L 05/29/21 08:33 91 05/29/21 08:02 36.6 C 73 18 117/69 93 05/29/21 07:18 99 H 22 96 Laboratory Results 05/29/21 05:53 05/28/21 05:50 PG Care Time/CCT Total # of Minutes Spent Total Time Spent with Patient: Total time spent is greater than 50% in coordination of care (as documented) at patient's floor/unit and/or counseling patient: Coding [place] [address] Subseq Hosp Care Lvl 3 Patient Type Established History Detailed Exam Detailed Medical Decision Making High Complexity Diagnoses Acute and chronic respiratory failure with hypoxia J96.21 IPF (idiopathic pulmonary fibrosis) J84.112 COPD (chronic obstructive pulmonary disease) with emphysema J43.9 Hypertension I10 CKD (chronic kidney disease) N18.9 Cerebrovascular disease I67.9 Urinary retention R33.9
[2021-05-29 15:16] LABS: BUN Creatinine Ratio 28.4 (10-20); Calcium 9.1 mg/dl (8.5-10.1); Creatinine Clr Calc Pharmacy 34.9 ml/min; Est GFR (African American) 45.9 ml/min; Est GFR (Non-African American) 39.6 ml/min; Potassium 4.4 mmol/L (3.5-5.1)
[2021-05-29] MEDS: AZITHROMYCIN 250 MG TAB PO SCH (20:19)
[2021-05-29] MEDS: LORazepam 0.5 MG TAB PO PRN (23:27)
[2021-05-30] MEDS: ALBUT/IPRATROP 3MG/0.5MG NEB 3 ML VIAL NEB SCH ×6 (04:27→22:01)
[2021-05-30 07:28] LABS: Calcium 8.8 mg/dl (8.5-10.1); Creatinine Clr Calc Pharmacy 36.3 ml/min; Est GFR (African American) 48.2 ml/min; Est GFR (Non-African American) 41.6 ml/min; Potassium 4.2 mmol/L (3.5-5.1)
[2021-05-30] MEDS: BUDESONIDE 0.5 MG/2 ML VIAL (PULMICORT) NEB SCH ×2 (08:15→18:59)
[2021-05-30] MEDS: FORMOTEROL 20 MCG/2 ML VIAL NEB SCH ×2 (08:15→18:59)
[2021-05-30] MEDS: TAMSULOSIN HCL 0.4 MG CAP PO SCH ×2 (09:04→21:02)
[2021-05-30] MEDS: amLODIPine BESYLATE 5 MG TAB PO SCH (09:04)
[2021-05-30] MEDS: methylPREDNISolone 40 MG in SYRINGE 0 ML IV SCH ×2 (09:04→21:01)
[2021-05-30] MEDS: ASPIRIN 81 MG ECTAB PO SCH (09:05)
[2021-05-30] MEDS: OMEGA-3 (PURIFIED FISH OIL) 1 GM CAP PO SCH (09:05)
[2021-05-30] MEDS: UMECLIDINIUM BROMIDE 62.5MCG/BLISTER 7 PUFFS/INHALER INH SCH (09:05)
[2021-05-30] MEDS: ENOXAPARIN INJ 40 MG/0.4 ML SYR SQ SCH (09:06)
--- NOTE | 2021-05-30 16:41 | Hospitalist Progress Note ---
Date of Service May 30, 2021 Assessment & Plan (1) Acute and chronic respiratory failure with hypoxia: Plan: 86 y/o WM with COPD and IPF on chronic supplemental O2 (4L) chronically admitted with A/C Hypoxic respiratory failure. Initially requiring 14 L upon admission. Currently down to 7L - likely mixed picture-- AECOPD/pulm fibrosis with superimposed CHF (as BNP elevated at [address]) - Echocardiogram with mildly redused systolic function/EF of 55 to 60% and grade 1 diastolic dysfunction. Right-sided dilation consistent with end-stage lung disease. Echocardiogram: Normal LV size and systolic function. EF 55 to 60%. No regional wall motion abnormalities. Mild concentric left ventricular hypertrophy Mildly dilated right ventricle with mildly reduced systolic function Severe right atrial dilation Mild mitral regurgitation Mild pulmonary hypertension with estimated RVSP of 44 mmHg Compared to prior study (2018)right ventricular now appears to be more dilated with reduced systolic function - Remains on IV steroids with down titration per pulmonology along with aggressive pulmonary toilet. Convert to oral prednisone starting tomorrow - In addition, has had has responded favorably to multiple doses of IV Lasix. Slight increase in creatinine but not far from baseline. Appears euvolemic at this point - continue supplemental O2 for goal pulse ox of 88-90% - ABG showing no evidence of acute hypercapnia - troponin was negative, no evidence of ACS - continue empiric abx therapy (azithromycin); however, no significant concern for infectious process - pulmonary on board-- appreciate recommendations - lengthy D/W patient regarding during this hospitalization regarding appropriateness for hospice care given end-stage lung disease. Seen by Palliative care-- appreciate recommendations - He is requiring increased supplemental oxygen at this point and if this remains, would need Oxymizer arranged. I discussed this with case management and asked that this be arranged. - He is well aware of his end-stage lung disease and wants no heroic measures. Aware that options are limited at best and that his lung disease is progressive. He is agreeable to see palliative care at this time. -His big concern at this time is being "a burden to his ". He is well aware that he has been declining from a respiratory standpoint and believes he requires too much care than what she can provide. Patient gets extremely dyspneic with very limited exertion. That being said, he is rather independent and he does not meet any criteria for acute rehab but would rather need a long- term care. Case mgmt on board but would be more appropraite to transition to long-term care as an outpatient. Did discuss this with his and encouraged that she reach out to patient's PCP to get the MA-51 started. -Hospice referral placed. They are working on getting equipment into the home (which actually will come this afternoon); however, lack of transportation until tomorrow. Plan is for discharge to home tomorrow with hospice (2) Urinary retention: Plan: -I suspect this is likely multifactorial. With his agelikely has underlying BPH. In addition, he now has been started on anticholinergic medications which are likely contributing to urinary retention/trouble voiding -Now with jr blood which I suspect is from trauma (straight cath X twice then insertion of indwelling Galeana catheter). Patient does not have a three-way or a way to irrigate the bladder. -He takes routine aspirin is on Lovenox for DVT prophylaxis. We will hold both of these -We will obtain a urinalysis and urine culture to rule out underlying infection -I have started him on Flomax (twice daily X 7 days then once a day) -Plan is for discharge with Galeana catheter and referral to see urology as an outpatient. Visiting nurses will be arranged to help with bladder training (3) IPF (idiopathic pulmonary fibrosis): Plan: - see above (4) COPD (chronic obstructive pulmonary disease) with emphysema: Plan: - see above. - pulm on board and has added incruse to his Breo Ellipta. While in house, currently on Pulmicort/Perforomist and routine DuoNeb treatments. (5) Hypertension: Plan: - continue Norvasc - hydralazine noted to be on home med list (PRN) and not continued here. Current BP stable/ well controlled (6) CKD (chronic kidney disease): Plan: - stable/at baseline (7) Cerebrovascular disease: Plan: - s/p old CVD without sequella -Aspirin currently on hold as outlined above Plan: - plan of care to be D/W Dr. Almeida. Further orders as warranted. -Did call and update the and have discussed plan extensively with case management Admission and Anticipated Discharge Date Admission Date: May 26, 2021 Subjective Patient seen on daily rounds today. Vocalizes no complaints or concerns. Claims that he feels that he is "at his baseline". Was documented that he was requiring 11 L overnight; however, he reports that the mask was not over his face and when this was adjusted, he was requiring 7 L. Has been mainly requiring 7 L at rest. 9 L following limited exertion. Lengthy discussion with and goal is for discharge to home with hospice with eventual plan for long-term placement Case management working on initiating hospice and getting supplies into the home (bedside commode, hospital bed, oxygen with Oxymizer). Patient was unable to void overnight which led to the Galeana catheter being inser samreen (as he was straight cathed twice X2). He does appear to have jr blood in the urine Review of Systems Review of Systems: All systems reviewed and are unremarkable except as noted in HPI and below Denies fevers, chills, headache, nasal congestion, sore throat, cough, chest pain, shortness of breath, palpitations, orthopnea, PND, abdominal pain, nausea, vomiting, diarrhea, constipation, dysuria, hematuria, frequency, back pain, joint pain or swelling, easy bruising or blooding, skin lesions or rashes. Physical Exam Physical Exam: General: Resting comfortably in his hospital bed. NAD. HEENT: Head is AT/NC buccal mucosa is moist and pink Neck: No JVD. Negative hepatojugular reflex Cardiac: RRR but very distant heart sounds Lungs: Speaking full sentences on supplemental oxygen. No conversational dyspnea. Does have improved air exchange with end expiratory wheezes. No rales or rhonchi Galeana catheter in place with jr blood Abdomen: Normoactive X4. Soft and nontender in all quadrants. Extremities: No peripheral clubbing cyanosis or edema Neuro: A&O X4 cranial nerves II through XII are grossly intact no focal neuro deficits Skin: No obvious skin lesions or rashes Psych: Appropriate affect pleasant and cooperative Results & Data Results & Data ([facility]) Vital Signs (Past 12 Hours) Vital Signs Temp Pulse Resp BP Pulse Ox 05/30/21 15:55 37.0 C 74 18 115/64 95 05/30/21 15:12 72 18 91 05/30/21 11:10 72 18 90 05/30/21 08:41 90 05/30/21 08:20 36.8 C 74 18 127/72 90 05/30/21 08:16 72 20 95 Laboratory Results 05/29/21 05:53 05/30/21 06:34 PG Care Time/CCT Total # of Minutes Spent Total Time Spent with Patient: Total time spent is greater than 50% in coordination of care (as documented) at patient's floor/unit and/or counseling patient: [place] [address] Subseq Hosp Care Lvl 3 Patient Type Established History Comprehensive Exam Comprehensive Medical Decision Making High Complexity Diagnoses Acute and chronic respiratory failure with hypoxia J96.21 Urinary retention R33.9 IPF (idiopathic pulmonary fibrosis) J84.112 COPD (chronic obstructive pulmonary disease) with emphysema J43.9 Hypertension I10 CKD (chronic kidney disease) N18.9 Cerebrovascular disease I67.9
[2021-05-30 17:29] LABS: Appearance Urine Cloudy (Clear); Color Urine Red; Specific Gravity Urine 1.016 (1.000-1.030)
[2021-05-30 17:33] LABS: Bacteria Urine Negative (Negative); Epithelial Cell Urine 0-5 /lpf (0-5); RBC Urine >30 /hpf (0-4)
[2021-05-30] MEDS: LORazepam 0.5 MG TAB PO PRN (21:02)
[2021-05-30] MEDS: AZITHROMYCIN 250 MG TAB PO SCH (21:02)
[2021-05-31] MEDS: ALBUT/IPRATROP 3MG/0.5MG NEB 3 ML VIAL NEB SCH ×3 (02:00→12:17)
[2021-05-31 06:41] VITALS: BP 124/66; PULSE 73; TEMP 97.9
[2021-05-31] MEDS: amLODIPine BESYLATE 5 MG TAB PO SCH (07:47)
[2021-05-31] MEDS: OMEGA-3 (PURIFIED FISH OIL) 1 GM CAP PO SCH (07:47)
[2021-05-31] MEDS: TAMSULOSIN HCL 0.4 MG CAP PO SCH (07:47)
[2021-05-31] MEDS: methylPREDNISolone 40 MG in SYRINGE 0 ML IV SCH (07:48)
[2021-05-31] MEDS: UMECLIDINIUM BROMIDE 62.5MCG/BLISTER 7 PUFFS/INHALER INH SCH (07:49)
[2021-05-31] MEDS: BUDESONIDE 0.5 MG/2 ML VIAL (PULMICORT) NEB SCH (07:54)
[2021-05-31] MEDS: FORMOTEROL 20 MCG/2 ML VIAL NEB SCH (07:54)
[2021-05-31 07:57] VITALS: O2SAT 91
[2021-05-31] MEDS ORDERED: bisacodyL 10 MG SUPP PR STA (08:55)
[2021-05-31] MEDS ORDERED: POLYETHYLENE (MIRALAX) 17 GM PACK PO STA (08:55)
--- NOTE | 2021-05-31 13:43 | Discharge Summary ---
Date of Service May 31, 2021 Admission HPI Per Admitting Provider 86-year-old male who suffers from pulmonary fibrosis and usual interstitial pneumonitis. He has a history also COPD requiring oxygen. He presents with worsening shortness of breath and is currently requiring 7 L in the emergency department to maintain his saturations. Patient states she has had a subtle but continual decline at home cannot incite a particular event has not had any fevers or chills. He says he had some nonproductive coughing episodes. He has been wearing both of his oxygen concentrator's and even his portable oxygen at home to try to get his oxygen levels to maintain above 90. He says with exertion they typically go down. He does not typically take steroids at home he is not use the morphine has been prescribed for shortness of breath. He however has an increasing anxiety of late Principal Diagnosis 1. Acute on chronic respiratory failure 2. Acute exacerbation of COPD 3. Acute flare of pulmonary fibrosis 4. Mild superimposed CHF 5. Urinary retention 6. Traumatic hematuria Discharge Exam General: Resting comfortably in his hospital bed. NAD. HEENT: Head is AT/NC buccal mucosa is moist and pink Neck: No JVD. Negative hepatojugular reflex Cardiac: RRR but very distant heart sounds Lungs: Speaking full sentences on supplemental oxygen. No conversational dyspnea. Does have improved air exchange with end expiratory wheezes. No rales or rhonchi Galeana catheter in place with jr blood Abdomen: Normoactive X4. Soft and nontender in all quadrants. Extremities: No peripheral clubbing cyanosis or edema Neuro: A&O X4 cranial nerves II through XII are grossly intact no focal neuro deficits Skin: No obvious skin lesions or rashes Psych: Appropriate affect pleasant and cooperative Discharge Data Allergies Allergy/AdvReac Type Severity Reaction Status Date / Time No Known Allergies Allergy Verified 05/26/21 14:59 Consultations 05/26/21 19:56 Consult Pulmonology Routine Assessment & Plan (1) Acute and chronic respiratory failure with hypoxia: (2) SOB (shortness of breath): (3) COPD (chronic obstructive pulmonary disease) with emphysema: (4) Pulmonary hypertension: Plan: CT chest 05/26/2021 personally reviewed: Centrilobular and paraseptal emphysema appreciated bilaterally 11 mm left upper lobe pulmonary nodule, right upper lobe 17 mm pulmonary nodule, another 11 mm right upper lobe pulmonary nodule (Unchanged since January 2021) Bibasilar minimal interstitial thickening Cardiomegaly Minimal mediastinal adenopathy especially station 4R (Unchanged since January 2021) --Acute on chronic hypoxic respiratory failure Likely secondary to Combination of COPD as well as CHF BNP 5500 Procalcitonin negative COVID-19 PCR negative O2 supplementation to keep oxygen between 88-92% --Combined pulmonary fibrosis and emphysema On Symbicort and Spiriva as an outpatient Follows up with Dr. Whitt --Pulmonary hypertension Combination of type II and type III RVSP 44, mild reduced right ventricular systolic function --Multiple pulmonary nodules Unchanged since January 2021 Continue to monitor Plan: Patient clinically doing better from pulmonary perspective. Is making good amount of urine Go down on Solu-Medrol to 40 mg every 12 The next 24-48 hours will recommend to transition to p.o. prednisone 40 mg for 4 days followed by 20 mg for 4 days I do think patient will benefit from pulmonary rehab. No further recommendation from pulmonary perspective. Will sign off Please call directly with any questions. 05/28/21 14:09 Consult Palliative Care Routine Assessment & Plan (1) Palliative care encounter: Mr. Castillo is an 86 year old male who presented to the [facility] with hypoxia. He has COPD and IPF (idiopathic pulmonary fibrosis) that requires 4LNC supplemental oxygen at baseline at home and has had some exacerbations of his illness. He does follow Pulmonary outpatient where he receives most of his inhaler medication management from. In reviewing notes from his pulmonary visits, he has numerous lung nodules that have been followed closely on C; locations include 15 mm R apical, 8 mm L apical and some smaller other locations. Additional PMH includes HLD and HTN. This admission, he has required more oxygen, currently at 9L via oxymask. His , Rona, has expressed that his care needs are becoming increasingly harder at home and she has looked into hospice services. Palliative Medicine was consulted to discuss overall goals of care. I met with Mr. Castillo and he was sitting in his bed in no apparent distress. His oxygen has been weaned to 7L on oxymask. He did discuss that he has multiple concentrators at home and, at times, combines them for maximized use, up to 10L through each nasal cannula. He said that at rest he requires 4-5 L. When he goes to the bathroom, he requires up to 10L. He confirmed that he would firmly not want intubation nor CPR efforts taken in the event of cardiac or respiratory arrest. Confirmed DNR/DNI. He stated that he does not have any children but his has a daughter who lives in [place] that is on her way to [place] for a visit. He has stated that he would like to return home and is receptive to hospice services to help support him and his . His , is using a walker, but he is able to relatively do his own ADL's. For now, case management is assisting with disposition, but returning home with hospice support would be supported. Thanks for involving Palliative Medicine with this individual. (2) Hypoxia: Currently SpO2 89% on 7L oxymask. I feel this is close to his baseline level of oxygenation. Patient may benefit from PRN Roxanol when he does have exacerbation moving forward to maximize his quality of life. Ordered Studies 05/26/21 14:57 CT angio chest PE protocol Stat IMPRESSION: 1. There is no evidence of pulmonary embolus in the main, lobar, or segmental pulmonary arteries. 2. Cardiomegaly and advanced emphysema with probable changes of superimposed interstitial/fibrotic lung disease. 3. There is coarsening of interstitial and increasing dependent opacities. This could represent a superimposed infectious/inflammatory pneumonitis or possibly congestive change. Clinical correlation will be required. 4. Bilateral upper lobe nodular opacities are unchanged from 02/05/2021. These are pathologically indeterminant, and an additional 12 month follow-up examination is recommended is recommended as neoplasm is not excluded. 5. Mediastinal and hilar lymphadenopathy are unchanged and likely related to chronic lung disease. 6. Additional findings as above Hospital Course (1) Acute and chronic respiratory failure with hypoxia: 86 y/o WM with COPD and IPF on chronic supplemental O2 (4L) chronically admitted with A/C Hypoxic respiratory failure. Initially requiring 14 L upon admission. Currently down to 7L - likely mixed picture-- AECOPD/pulm fibrosis with superimposed CHF (as BNP elevated at [address]) -Initially required 15 L supplemental oxygen which has now been down tapered to 6 to 7 L. - Echocardiogram with mildly redused systolic function/EF of 55 to 60% and grade 1 diastolic dysfunction. Right-sided dilation consistent with end-stage lung disease. Echocardiogram: Normal LV size and systolic function. EF 55 to 60%. No regional wall motion abnormalities. Mild concentric left ventricular hypertrophy Mildly dilated right ventricle with mildly reduced systolic function Severe right atrial dilation Mild mitral regurgitation Mild pulmonary hypertension with estimated RVSP of 44 mmHg Compared to prior study (2018)right ventricular now appears to be more dilated with reduced systolic function - Treated with IV steroids with down titration per pulmonology along with aggressive pulmonary toilet. Plan is for continued prednisone taper as outlined by pulmonology (40 mg X 4 daysfirst dose given today on day of discharge, 20 mg daily X 4 days). - In addition, patient has responded favorably to multiple doses of IV Lasix. Slight increase in creatinine but not far from baseline. Appears euvolemic at this point - ABG showing no evidence of acute hypercapnia - troponin was negative, no evidence of ACS - Completed a full course of empiric abx therapy (azithromycin); however, no significant concern for infectious process - pulmonary on board-- appreciate recommendations - lengthy D/W patient regarding during this hospitalization regarding appropriateness for hospice care given end-stage lung disease. Seen by Palliative care-- appreciate recommendations - Currently requiring only 6 to 7 L of oxygen. If he requires more, would need Oxymizer arranged. I discussed this with case management and asked that this be arranged. - He is well aware of his end-stage lung disease and wants no heroic measures. Aware that options are limited at best and that his lung disease is progressive. He is agreeable to see palliative care at this time. -His big concern at this time is being "a burden to his ". He is well aware that he has been declining from a respiratory standpoint and believes he requires too much care than what she can provide. Patient gets extremely dyspneic with very limited exertion. That being said, he is rather independent and he does not meet any criteria for acute rehab but would rather need a long- term care. Case mgmt on board but would be more appropraite to transition to long-term care as an outpatient. Did discuss this with his and encouraged that she reach out to patient's PCP to get the MA-51 started. --Patient has responded favorably to aggressive treatment and is likely at his baseline. Will discharge with continued taper of prednisone, and supplemental oxygen to keep pulse ox between 88 and 90%. His Brio Ellipta has been changed to Pulmicort/Perforomist as I believe with his end-stage lung disease he does not have proper lung function to inhale and get medication where it needs to be. In addition, has been put on routine DuoNeb. -There was mention of bilateral upper lobe opacities unchanged from 2001 that are pathologically indeterminate and a follow-up CT is recommended in 12 months as neoplasm cannot be excluded. (2) Urinary retention: -I suspect this is likely multifactorial. With his agelikely has underlying BPH. In addition, he now has been started on anticholinergic medications which are likely contributing to urinary retention/trouble voiding -Now with jr blood which I suspect is from trauma (straight cath X twice then insertion of indwelling Galeana catheter). Patient does not have a three-way or a way to irrigate the bladder. -On routine aspirin which is now on hold (hold X 14 days) and Lovenox for DVT prophylaxis given upfront which was subsequently stopped with development of jr hematuria. -We will obtain a urinalysis and urine culture to rule out underlying infection -I have started him on Flomax (twice daily X 7 days then once a day) -Plan is for discharge with Galeana catheter and referral to see urology as an outpatient. Visiting nurses will be arranged to help with bladder training. Galeana to remain in place until follow-up with urology. (3) IPF (idiopathic pulmonary fibrosis): - see above (4) COPD (chronic obstructive pulmonary disease) with emphysema: - see above. - pulm on board and has added incruse to his Breo Ellipta. While in house, currently on Pulmicort/Perforomist and routine DuoNeb treatments. (5) Hypertension: - continue Norvasc - hydralazine noted to be on home med list (PRN) and not continued here. Current BP stable/ well controlled (6) CKD (chronic kidney disease): - stable/at baseline (7) Cerebrovascular disease: - s/p old CVD without sequella -Aspirin currently on hold as outlined above Discharge recommendations: 1. Referral to urologymade 2. Discharge with Galeana catheter with plan for bladder training. Removal of catheter per urology 3. Note addition of Flomax. Subsequent prescription to be provided by PCP 4. Note change in his COPD medications to from inhalers to nebulized medications. 5. Aspirin on hold given jr hematuria (traumatic from multiple straight caths). Told to hold for at least 14 days. Resumption per PCP 6. Recommend repeat CT scan in 12 months due to bilateral opacities unchanged from 02/18neoplasm cannot be ruled out 7. DC with hospice Home Health Attestation I certify that this patient is under my care and that I, or a physicians exceptional children teacher assistant working with me, had a face to-face encounter that meets the home health [id number] encounter requirements with this patient. The encounter with the patient was in whole, or in part, for the following med ical condition, which is the primary reason for home health care (list medical condition): I certify that, based on my findings, the following services are medically necessary home health services: My clinical findings support the need for the above services because: Further, I certify that my clinical findings support that this patient is homebound (i.e. absences from home require considerable and taxing effort and are for medical reasons or alevism services or infrequently or of short duration when for other reasons) because: Certification for Home Health Services: Based on the above findings, I certify that this patient is confined to the home and needs intermittent fdc care, physical therapy and/or speech therapy or continues to need occupational therapy. The patient is under my care, and I have initiated the establishment of the plan of care. This patient will be followed by a physician who will periodically review the plan of care. Total Time Total Time Spent Total Time Spent (In Minutes): 60 minutes including time spent with patient, coordination of care, and documentation. Discharge Plan Discharge Items Patient Disposition: Hospice - Home Reason For Visit: ACUTE ON CHRONIC RESPIRATORY FAILURE WITH HYPOXIA Discharge Diagnosis: 1. End Stage Donis Disease (Fibrosis and COPD) 2. Acute on Chronic Respiratory Failure- due to exacerbation of lung disease and mild superimposed heart failure 3. Urinary retention (likely from BPH and medication induced) 4. Hematuria (from trauma- repetitive straight cath and ASA/lovenox) Activity: As commented below Activity Comment: as tolerated Non-emergency contact: Primary Care Provider Call non-emergency contact if: you have any medication questions Follow-up/Referrals: Tk Almeida DO [Primary Care Provider] - Diet: Regular Addtl Attending Provider Instructions: - You were hospitalized with a flareup of your end-stage lung disease (COPD and fibrosis) - You were also thought to have a component of some mild superimposed fluid accumulation which was contributing to your shortness of breath - You have been treated with steroids and breathing treatments along with diuretic therapy to pull off excess fluid - Overall, your flare-up has improved as you were requiring 15 L of oxygen upon admission and are now down to 6 to 7 L - Unfortunately, you do have end-stage lung disease and this is likely your baseline. As discussed, you are being sent home with hospice - I did change some of your inhalers to nebulized form (similar medication but via a nebulizer) as with diminished lung function like yourself, it is very hard for you to get the medication into the lung where it needs to be through an inhaler (you will likely hav a difficult time breathing that in) - take prednisone (40mg daily x 3 days and then 20mg daily x 4 days) - you have been started on additional medications to help preserve lung function and dry up excess secretions. Unfortunately, this can cause urinary retention and make it difficult to urinate (especially in the setting of an enlarged prostate). - To help with the urinary retention, you have been started on Flomax (which should be taken twice a daily for 1 week and then once a day) - Also, you had multiple straight catheterizations during this hospitalization and subsequently now have an indwelling Galeana catheter. The urine in the catheter does appear to be dark red but I assure you that your hemoglobin (blood count) has remained stable. A little bit of blood in a catheter bag goes a long way and will make it look like there is a great amount. It does seem to be clearing - CONTINUE TO HOLD YOUR ASPIRIN for ~14 days. - I advise some bladder training (which can be done by visiting nursing-- per protocol) - Galeana catheter to remain in place until you are seen in follow-up by urology - Take all of your medications as outlined --FU recommendations are for repeat CT of the chest in 12 months Pending Studies at Discharge: No Stand-Alone Forms: My [facility] Medications and DC Order Prescriptions: New tamsulosin 0.4 mg Capsule 0.4 mg PO BID Qty: 45 RF: 0 budesonide 0.5 mg/2 mL Suspension For Nebulization 0.5 mg NEB BIDR Qty: 60 RF: 0 formoterol fumarate [Perforomist] 20 mcg/2 mL Solution For Nebulization 20 mcg NEB Q12R Qty: 60 RF: 0 prednisone 20 mg tablet 20 mg PO DIRECTED Qty: 11 RF: 0 Continued ipratropium-albuterol 0.5 mg-3 mg(2.5 mg base)/3 mL solution for nebulization 3 ml inhalation Q4H PRN (Reason: shortness of breath or wheezing) Qty: 180 RF: 5 albuterol sulfate 90 mcg/actuation HFA aerosol inhaler 2 - 4 puff Inhalation Q6H PRN (Reason: Shortness Of Breath Or Wheezing) Qty: 18 RF: 5 (DME) rollable table See Rx Instructions .Route .MEDSUPPLY Qty: 1 RF: 0 Spiriva Respimat 2.5 mcg/actuation mist 2 inh inhalation QAM Qty: 4 RF: 5 hydroxyzine HCl 25 mg tablet 25 mg PO TID PRN (Reason: anxiety) Qty: 90 RF: 0 (DME) Hospital Bed Misc See Rx Instructions .Route Qty: 1 RF: 0 omega 0-rre-zkx-fish oil [Fish Oil] 1,000 mg (120 mg-180 mg) Capsule 1 cap PO QAM RF: 0 amlodipine 10 mg tablet 10 mg PO QAM RF: 0 morphine concentrate 100 mg/5 mL (20 mg/mL) solution 5 mg PO Q6H PRN (Reason: dyspnea) Qty: 30 RF: 0 Discontinued Symbicort 160-4.5 mcg/actuation HFA aerosol inhaler 2 inh INH BID Qty: 10.2 RF: 5 aspirin [Aspirin Low Dose] 81 mg Tablet,Delayed Release (Dr/Ec) 81 mg PO QAM RF: 0 Discharge Orders: Discharge Order (Routine); Ordered 05/31/21 Ordered By: Destini Andino/Other Patient Handouts: ED Urinary Retention, Male Admission Data Admit Date/Time: 05/26/21 18:24 Attending Provider: Joel Almeida Admit Provider: Kvng Purcell Primary Care Provider: Tk Almeida Other Providers: Gabrielle Reynolds ; Joel Almeida ; Annette Quintana Other Interventions: Discharge Summary Assessment (RN) Last Done: 05/31/21 10:18 Supervising Physician Co-Signing Physician Notes I supervised Destini Mensah PA-C on the care of this patient. I interviewed and examined the patient independently of her. The plan is as written in her note except for any following changes/exceptions: None Doing well today. Stable on what is likely his baseline O2. Home with hospice given his end-stage fibrosis. Coding Level of Care Code Established Pt D/C DAY MANAGEMENT >30 MINS Patient Type Established Diagnoses Acute and chronic respiratory failure with hypoxia J96.21 Urinary retention R33.9 IPF (idiopathic pulmonary fibrosis) J84.112 COPD (chronic obstructive pulmonary disease) with emphysema J43.9 Hypertension I10 CKD (chronic kidney disease) N18.9 Cerebrovascular disease I67.9 Time Spent (min) 60
== END 2021-05-31 12:53 | disposition hospice, home (50) | DRG 196 ==
LOC: ED 14:27 → 3E 18:24 → SUATTDRO 18:24 → 3E 19:50
DX: Z51.5 Encounter for palliative care; N40.0 Benign prostatic hyperplasia without lower urinary tract symptoms; J84.112 Idiopathic pulmonary fibrosis; J44.1 Chronic obstructive pulmonary disease with (acute) exacerbation; Z82.49 Family history of ischemic heart disease and other diseases of the circulatory system; N18.9 Chronic kidney disease, unspecified; I27.23 Pulmonary hypertension due to lung diseases and hypoxia; Z66 Do not resuscitate; Y92.239 Unspecified place in hospital as the place of occurrence of the external cause; Z87.891 Personal history of nicotine dependence; R33.9 Retention of urine, unspecified; R91.8 Other nonspecific abnormal finding of lung field; Z79.82 Long term (current) use of aspirin; Z86.73 Personal history of transient ischemic attack (TIA), and cerebral infarction without residual deficits; Z99.81 Dependence on supplemental oxygen; T50.905A Adverse effect of unspecified drugs, medicaments and biological substances, initial encounter; I27.22 Pulmonary hypertension due to left heart disease; T83.83XA Hemorrhage due to genitourinary prosthetic devices, implants and grafts, initial encounter; Y84.6 Urinary catheterization as the cause of abnormal reaction of the patient, or of later complication, without mention of misadventure at the time of the procedure; I13.0 Hypertensive heart and chronic kidney disease with heart failure and stage 1 through stage 4 chronic kidney disease, or unspecified chronic kidney disease; J96.21 Acute and chronic respiratory failure with hypoxia; Z79.899 Other long term (current) drug therapy; I50.9 Heart failure, unspecified